=== PATIENT | female | born 1945 | race Caucasian/White ===

== ENCOUNTER 2018-12-22 13:42 | Observation (INO) ==
--- NOTE | 2018-12-22 13:59 | Cardiology Consultation ---
Date of Consultation December 22, 2018 Assessment & Plan (1) Unstable angina pectoris: Patient was transferred from [facility] by EMS to the emergency department, case discussed with Dr. Bolañoss of interventional Cardiology, and expedited cardiac catheterization tentatively planned. I called and discussed the patient's illness with her , Ramirez at home. He is going to drive himself to the hospital to meter in the emergency department. Patient to be reassessed as her hospital stay progresses. Medication therapy including anti-platelet therapy, beta-cassius, and statin therapy will be administered. History of Present Illness History of Present Illness Kaz Campuzano is a 73 year old year old female seen today in cardiology consultation [facility] Mrs. Campuzano has a history of DM2, HTN, and dyslipidemia. She has no past history of heart disease. About 2 weeks ago she started having waxing waning vague pressure in the upper portion of her chest that would also radiate down her arms. At first she felt it occurred after straining a muscle when she was doing yard work, but has persisted. She was seen by her primary care provider on 12/13/2018 and EKG revealed mild nonspecific repolarization changes. A pharmacologic nuclear stress test and resting echocardiogram had tentatively been planned for today. But when the patient arrived, she alerted the nuclear medicine specialist that she had been having symptoms on arrival this morning of 6/10 intensity. She also noted waxing waning symptoms at rest while trying to sleep last night. The patient was assessed by the undersigned and at that time her symptoms had completely resolved. A resting echo has been completed revealing mild to moderate concentric left ventricular hypertrophy, severe posterior mitral valve annular calcification without mitral stenosis, mild tricuspid regurgitation and mild aortic valve regurgitation with an ejection fraction in the range of 55% and subtle hypokinesis of the anteroseptal wall at the apical and mid levels noted on the parasternal long-axis view. An EKG performed today [facility] at 12:51 p.m. reveals normal sinus rhythm at 84 beats per minute, with repolarization changes consistent with ischemia in the anterolateral leads as well as in the inferior leads that are new compared to th e prior tracing performed on 12/13/2018. At present, the patient is asymptomatic resting in the examination room. Patient History Medical History DM2 (diabetes mellitus, type 2) Dyslipidemia HTN (hypertension) Family History Father Coronary heart disease Social History Preferred Language: Khmer Hearing Ability: Normal Current Living Situation: Spouse current occupational status: retired Feels Safe at Home: Yes Smoking Status: Never smoker Review of Systems Review of Systems: All systems reviewed & are unremarkable except as noted in HPI & below Physical Exam Physical Exam: Heart rate: 84, blood pressure 152/86 millimeters Hg, respiratory rate 16 General: no acute distress and stated age Eyes: conjunctiva are pink and non-injected, sclera clear Neck: normal jugular venous pulse, no hepatojugular reflux Chest: normal shape and normal respiratory effort Lungs: clear to auscultation and percussion Cardiac Exam: - regular heart sounds, no murmurs, rubs, or gallops Abdomen: abdomen soft, non-tender, no abnormal masses and no hepatosplenomegaly Musculoskeletal: no gait disturbance, no weakness Extremities: no edema and no cyanosis Neuro: grossly normal exam Psych: appropriate affect and insight Results & Data Laboratory Results recent outpatient labs dated 12/12/2018: WBC 7.61 Hemoglobin 13.9 Hematocrit 42.2 Platelet count 20 89 Heart sodium 141 Potassium 4.8 CO2 27 Chloride 102 Glucose 124 Calcium 10.4 Hemoglobin A1c is 6% Total cholesterol 215 HDL 63 LDL 123 Triglyceride 145 Diagnostic Findings EKG performed 12/22/2018 reveals normal sinus rhythm 84 beats per minute, ST T wave abnormality consistent with ischemia in the anterolateral leads, inferior leads, new/progressed compared to prior dated 12/13/2018 Medications Administered aspirin 81 milligrams, 4 tablets, chewed, 12:54 p.m., [facility]
[2018-12-22] MEDS ORDERED: NiCARDipine HCL INJ 2.5 MG/ML 10 ML AMP ONE (14:04)
[2018-12-22] MEDS ORDERED: fentaNYL citrate 100 MCG/2 ML VIAL ONE (14:04)
[2018-12-22] MEDS ORDERED: HEPARIN (PORCINE) 1000 UNIT/ML 10 ML (CATH LAB USE ONLY) ONE (14:04)
[2018-12-22] MEDS ORDERED: MIDAZOLAM HCL 1 MG/ML 2ML VIAL ONE (14:04)
[2018-12-22] MEDS ORDERED: NITROGLYCERIN/D5W 100MCG/ML 20ML SYR ONE (14:05)
[2018-12-22 14:11] LABS: iSTAT Creatinine 1.1 mg/dl (0.6-1.3); iSTAT Hemoglobin 16.3 g/dl (12.0-16.0); iSTAT Ionized Calcium 1.22 mmol/l (1.12-1.32); iSTAT Potassium 3.9 mEq/L (3.3-5.0)
--- NOTE | 2018-12-22 14:42 | Cardiology Progress Note ---
Date of Service December 22, 2018 Subjective Cardiac cath revealed critical left main stenosis. pt asymptomatic at rest. will admit to PCU to facilitate urgent transfer to [facility] in [place] for CT surgery evaluation. cont heparin which was started in lab nurse may start nitro paste upon arrival to floor. Results & Data Vital Signs (Past 12 Hours) Vital Signs Temp Pulse Resp BP Pulse Ox 12/22/18 13:48 37.0 C 88 20 169/91 H 95
[2018-12-22] MEDS ORDERED: ACETAMINOPHEN 325 MG TAB PO PRN (14:48)
[2018-12-22] MEDS ORDERED: ALUMINUM/MAGNESIUM SUSP 30 ML UDC PO PRN (14:48)
[2018-12-22] MEDS ORDERED: NITROGLYCERIN SL 0.4 MG/TAB TAB SL PRN (14:48)
[2018-12-22] MEDS ORDERED: ONDANSETRON INJ 2 MG/ML 2 ML VIAL IV PRN ×2 (14:48→15:01)
[2018-12-22] MEDS ORDERED: MAGNESIUM HYDROXIDE SUSP 30 ML UDC PO PRN (14:48)
[2018-12-22] MEDS ORDERED: POLYETHYLENE (MIRALAX) 17 GM PACK PO PRN (14:48)
--- NOTE | 2018-12-22 14:49 | Pre Anesthesia Assessment ---
Date of Service December 22, 2018 Pre Sedation Assessment Vital Signs Temp Pulse Resp BP Pulse Ox 12/22/18 13:48 98.6 F 88 20 169/91 H 95 Cardiovascular RRR, no murmur, no edema Respiratory normal respiratory effort, lungs clear to auscultation Pre-Sedation Airway Assessment Smoking Status: Never smoker Hx Sleep Apnea: No Hx Difficult Intubation: No Short, Thick Neck: No Thyromental Distance: > or= 3.5 Finger Breadths Oral Cavity: + Dental Abnormalities Mallampati Class: III ASA: ASA4 Procedure Planning Contraindications for Sedation: none Current Medications Reviewed: Yes Notes The planned sedation has been discussed with the patient. Informed Consent was obtained. I have identified the patient, determined the appropriateness of sedation and have assessed the patient immediately prior to the procedure. All medicine(s) and interventions are by my order.
--- NOTE | 2018-12-22 14:49 | Post Anesthesia Assessment ---
Date of Service December 22, 2018 Post Sedation Assessment Vital Signs Temp Pulse Resp BP Pulse Ox 12/22/18 13:48 98.6 F 88 20 169/91 H 95 Recovery Score Activity: Moves 4 extremities Respiration: Deep Breath/Cough Circulation: +/-20% PreAnes Value Consciousness: Fully Awake Oxygen Saturation: O2 needed for >90% Discharge Sedation Level of Care: Fast Track Phase II Post Sedation Plan On clinical assessment, the patient appears to have tolerated the sedation without complications. Patient is recovering as anticipated. Patient will continue to be monitored by nursing and may be discharged when sedation discharge criteria are met per below protocol. Upon Completions of procedure and additional 15 minutes continue every 5 minute vital signs and the P.A.R. score; then discharge to a Phase I or Fast Track to Phase II per the following guidelines: * Discharge Patient to appropriate Phase II area if PAR is 8 or greater or return to pre- procedure baseline. The post - procedure orders will be as directed. * If PAR score is less than 8 or not return to pre-procedure baseline then patient will follow Phase I monitoring till PAR is reached for Phase II. The Phase I may be done in procedure room or may call to secure a Phase I area. * If naloxone or flumazenil are used for reversal, hold in Phase I for continued monitoring from when last reversal dose was given for a minimum of 60 minutes or longer pending the nurse and/or physician discretion of patient condition before discharge to Phase II. Please call the Sedation Physician to re-evaluate and complete post-note for discharge to Phase II area. Do NOT discharge from procedure sedation or Phase 1 until post- sedation evaluation note is complete by procedure /sedation MD Sedation Discharge Instructions to be given to the patient at discharge to home.
--- NOTE | 2018-12-22 15:01 | Cardiac Catheterization ---
[facility] Data: Telesales Representative Cardiac Status Clinical evaluation leading to the procedure CAD Presenation: Unstable angina Anginal Classification: CCS IV Heart Failure: No Cardiogenic Shock within 24 Hours: No Cardiac Arrest within 24 Hours: No Imaging Studies Past 6 Months: Yes Stress Studies Past 6 Months: No Diagnostic Physicians Name: Seymour Kwon MD Status: Urgent Closure Device Percutaneous Entry Location: Radial Closure Device: Radial Band Recommendations: CABG Intraprocedure Events Significant Disection: No Perforation: No Cardiac Cath Procedure Full Procedure Date December 22, 2018 Pre-Procedure Diagnosis Pre-Procedure Diagnosis: Acute Coronary Syndrome AUC Score AUC Score: 8 Post-Procedure Diagnosis Post-Procedure Diagnosis: Severe CAD and Normal Intracardiac Pressures Procedure(s) Performed Procedure(s) Performed: Coronary Angiography and Left Heart Cath Process Machine Operator Seymour Kwon MD Vp Product(s) Yandel Estimated Blood Loss Estimated Blood Loss: 5 Medication(s) Medication(s): Fentanyl, Heparin, Lidocaine 1%, Nicardipine, Nitroglycerin and Versed Summary of Findings Indication: Suspected acute coronary syndrome Access: 6 Fr slender right radial artery Catheters: Davenport, pigtail Findings: LM -calcified, 95+% distal left main prior to bifurcation with disease extending into ostial LAD LAD -moderate caliber vessel, 95% ostial LAD, 90% mid stenosis at takeoff of first septal, mid to distal luminal irregularities as wraps around apex. First diagonal with mild diffuse disease Circumflex -large caliber vessel, 70-80 % mid segment disease prior to bi furcating OM 2 RCA -dominant, 40 to 50% ostial stenosis (no waveform dampening with engagement), diffuse 40 to 50% mid to distal disease. PDA, PLB with luminal irregularities LVEDP -6 Arterial Closure: TR band Summary: 1. Severe multivessel coronary artery disease -95+% distal left main extending into ostial LAD 90% mid LAD 70 to 80% mid circumflex 40 to 50% ostial RCA, diffuse 40 to 50% mid to distal RCA 2. Normal intracardiac filling pressure Recommendations: Plan to transfer to [facility] for evaluation by cardiac surgery for CABG Start heparin infusion, topical nitrates, beta-cassius, aspirin, statin Hemodynamics Rest Ao:: 107/55/79 Final Ao: 124/62/80 LV: 104/6 Recommendations Recommendations: CABG Specimens Specimens: None Radiation Exposure (mGy) 706 Contrast (mls) 50 Fluids (cc crystalloids) Fluids (cc crystalloids): 45 Drains Drains: None Anesthesia Moderate Procedural Complication(s) None Disposition PCU I attest to the content of the Intraoperative Record and any orders documented therein. Any exceptions are noted below.
[2018-12-22] MEDS ORDERED: HEPARIN SODIUM/DEXTROSE 25,000 UNITS/500 ML BAG IV SCH (15:15)
[2018-12-22] MEDS ORDERED: SODIUM CHLORIDE 0.9% 1000ML 1,000 ML IV SCH (15:30)
--- NOTE | 2018-12-22 15:36 | Discharge Summary ---
Date of Service December 22, 2018 Principal Diagnosis coronary artery disease Discharge Exam General: Awake, alert and oriented x 3. No acute distress. HEENT: Normocephalic, atraumatic. Pupils equal, round and reactive to light and accommodation. Extraocular muscles are intact. Anicteric sclera. Moist mucous membranes. Neck: No JVD. No bruit. Cardiovascular: Regular. Positive S-4. Normal S-1 and S-2. No S-3. No murmurs or rubs. Pulmonary: Clear to auscultation B/L. No rales, rhonchi or wheezing Abdomen: Bowel sounds x 4, soft. No rebound, guarding or tenderness. No organomegaly. Extremities: No clubbing, cyanosis or edema. +2 pedal pulses bilaterally. Skin: Warm and dry. Discharge Data Allergies Allergy/AdvReac Type Severity Reaction Status Date / Time RENE Inhibitors Allergy Unverified 12/22/18 14:48 naproxen Allergy Unverified 12/22/18 14:48 Consultations 12/22/18 14:02 ED Decision to Admit Stat 12/22/18 15:02 Consult Cardiac Rehabilitation Routine Procedures Performed Operation Date: 12/22/18 13:45 Actual Procedures p Cath, Left with Cors and Vent - Thomas Kwon MD s Cineradiography w/Routine Exam - Thomas Kwon MD Ordered Studies 12/22/18 13:44 CL Cath Imgs for PACS use only Stat Hospital Course (1) Unstable angina pectoris: multivessel CAD including critical left main disease to be transferred to [facility] for CT surgery eval Total Time Total Time Spent Total Time Spent (In Minutes): 40 Total Time Includes: Examination of the Patient, Discharge Planning, Medication Reconciliation and Communication With Other Providers Discharge Plan Discharge Items Patient Disposition: Transfer Acute Care Hospital Reason For Visit: UNSTABLE ANGINA Discharge Diagnosis: critical coronary artery disease Activity: As commented below Lifting: None Bathing: No limitations Non-emergency contact: Primary Care Provider Call non-emergency contact if: you have any medication questions Follow-up/Referrals: PCP,NO [Primary Care Provider] - Diet: Heart Healthy Addtl Attending Provider Instructions: For transfer to [facility] for CT surgical eval and CABG Pending Studies at Discharge: No Stand-Alone Forms: Skimbl Skilled Items Patient informed of condition?: Yes DNR: No Discharge Level of Care: Other Communicable Disease: No Discharge Prognosis: Other Lines: Peripheral IV Urinary Catheter: No Medications and DC Order Prescriptions: Continued amlodipine 2.5 mg tablet 2.5 mg PO DAILY RF: 0 pravastatin 10 mg tablet 10 mg PO DAILY RF: 0 losartan-hydrochlorothiazide 50-12.5 mg tablet 1 tab PO DAILY RF: 0 Discharge Orders: Discharge Order (Routine); Ordered 12/22/18 Ordered By: Jacinto White Admission Data Admit Date/Time: 12/22/18 14:49 Attending Provider: Jacinto White Admit Provider: Jacinto White Primary Care Provider: PCP,NO Other Providers: Herberth Frye
--- NOTE | 2018-12-22 16:55 | Emergency Department Note ---
Entered by Yosvany Ratliff acting as a scribe for Wilfredo Martines MD History of Present Illness General Chief complaint: Cardiac Assessment Time Seen by Provider: 12/22/18 13:53 Source: patient Mode of arrival: EMS Limitations: no limitations History of Present Illness Onset (ago): hour(s) 2 Location: chest and upper extremity Radiation: other (arms) Pain Consistency: + other (waxing and waning ) Maximum Pain Intensity: 0 Current Pain Intensity: 5 Quality: + other (shooting) Associated symptoms: + other (shooting arm pain) Treatments prior to arrival: aspirin (4) The patient is a 73 year old female who presents to the Emergency Room with complaints of 5/10 chest pain that was radiating into her arms that started two hours prior to arrival. She states that she has waxing and waning pain in her chest. She notes that upon arrival she had a few twines of shooting pain into her arm. She notes that she was given four Aspirin via EMS. The patient notes that she is not currently taking any blood thinners. She reports that she received and EKG at [facility] that showed signs of cardiac ischemia and was referred here. Home Medications Home Medications Medication Instructions Recorded Confirmed Type amlodipine 2.5 mg PO DAILY 12/22/18 12/22/18 History losartan-hydrochlorothiazide 1 tab PO DAILY 12/22/18 12/22/18 History pravastatin 10 mg PO DAILY 12/22/18 12/22/18 History Allergies Allergy/AdvReac Type Severity Reaction Status Date / Time RENE Inhibitors Allergy Unverified 12/22/18 14:48 naproxen Allergy Unverified 12/22/18 14:48 Past Med/Surg History Medical History Diabetes mellitus, type II (Chronic) Dyslipidemia (Chronic) HTN (hypertension) (Chronic) DM2 (diabetes mellitus, type 2) Dyslipidemia HTN (hypertension) Family History Father Coronary heart disease Social History Preferred Language: Frisian Communication Ability: Effective Hearing Ability: Normal 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 and A total of 10 systems reviewed and were otherwise negative Physical Exam Vital Signs Vital Signs - 24 hr 12/22/18 13:48 12/22/18 13:59 12/22/18 14:45 Temperature 37.0 C Temperature Source Oral Sepsis Recent Fever Within 48 Hours No Sepsis New/Unexplained Change in Mental Status No Sepsis Action Taken by Nursing No Action Required Pulse Rate 88 Pulse Rate [Apical] 76 Pulse Rhythm Regular Respiratory Rate 20 17 Respiratory Effort / Characteristics Non-Labored Spontaneous Respiratory Depth Normal Respiratory Pattern Regular Blood Pressure 169/91 H Blood Pressure [Left Arm] 134/76 Blood Pressure Mean 117 Blood Pressure Mean [Left Arm] 95 Blood Pressure Position [Left Arm] Sitting Pulse Oximetry 95 97 Oxygen Delivery Method Room Air Room Air Room Air GENERAL: Awake, alert, uncomfortable, in no distress HENT: Normocephalic, atraumatic. Oropharynx with dry mucous membranes and otherwise unremarkable. EYES: Normal conjunctiva. Sclera non-icteric. NECK: Supple. No nuchal rigidity. FROM. No JVD. RESPIRATORY: CTAB. CARDIAC: Regular rate, normal rhythm. Extremities warm and well perfused. Pulses equal. ABDOMEN: Soft, non-distended. No tenderness to palpation. No rebound or guarding. No masses. RECTAL: Deferred. MUSCULOSKELETAL: Chest examination reveals no tenderness. The back is symmetrical on inspection without obvious abnormality. There is no CVA tenderness to palpation. No joint edema. LOWER EXTREMITIES: Calves are equal size bilaterally and non-tender. No edema. No discoloration. NEURO: Normal sensorium. No sensory or motor deficits noted. SKIN: No rash or jaundice noted. Course 1355: The patient was evaluated in room A03. A complete history and physical exam was performed. 1410: Discussed the patient's case with KAPIL Brennan. The patient will be evaluated for further management. 1523: Updated from hospitalist team, they will not be consulted for admission due to the patient being transferred. Administered Medications Acetaminophen (Tylenol) 650 mg PO Q4H PRN PRN Reason: Pain or Fever Stop: 01/21/19 14:47 Last Admin: 12/22/18 20:09 Dose: 650 mg Documented by: [id number] Heparin Sodium/Dextrose (Heparin Sodium/Dextrose) 25,000 units in 500 mls @ 15 mls/hr IV .Q24H [facility]; Protocol Stop: 01/21/19 15:14 Last Titration: 12/22/18 19:13 Dose: 750 units/hr, 15 mls/hr Documented by: [id number] Cosigned by: [id number] Admin: 12/22/18 18:49 Dose: 750 units/hr, 15 mls/hr Documented by: [id number] Cosigned by: [id number] Discontinued Medications Fentanyl Citrate (Fentanyl Citrate) Confirm Administered Dose 100 mcg .ROUTE .STK-MED ONE Stop: 12/22/18 14:05 Last Admin: 12/22/18 18:04 Dose: Not Given Documented by: [id number] Heparin Sodium (Porcine) (Heparin Iv Bolus (Floor Layer Helper Use Only)) Confirm Administered Dose 10,000 units .ROUTE .STK-MED ONE Stop: 12/22/18 14:05 Last Admin: 12/22/18 18:05 Dose: Not Given Documented by: [id number] Heparin Sodium/Dextrose () 1 ea IV Q30M [facility]; Protocol Stop: 12/22/18 18:00 Last Admin: 12/22/18 20:07 Dose: Not Given Documented by: [id number] Admin: 12/22/18 18:48 Dose: Not Given Documented by: [id number] Admin: 12/22/18 18:11 Dose: 1 ea Documented by: [id number] Admin: 12/22/18 18:08 Dose: Not Given Documented by: [id number] Heparin Sodium/Sodium Chloride (Heparin/Nss 1000 Unit/500ml Flush Bag) Confirm Administered Dose 3,000 units IV .STK-MED ONE Stop: 12/22/18 14:05 Last Admin: 12/22/18 18:06 Dose: Not Given Documented by: [id number] Sodium Chloride (Nss 1000ml) 1,000 mls @ 100 mls/hr IV .Q10H [facility] Stop: 12/22/18 20:29 Last Admin: 12/22/18 16:45 Dose: 100 mls/hr Documented by: [id number] Midazolam HCl (Versed) Confirm Administered Dose 2 mg .ROUTE .STK-MED ONE Stop: 12/22/18 14:05 Last Admin: 12/22/18 18:07 Dose: Not Given Documented by: [id number] Nicardipine HCl (Cardene) Confirm Administered Dose 25 mg .ROUTE .STK-MED ONE Stop: 12/22/18 14:05 Last Admin: 12/22/18 18:03 Dose: Not Given Documented by: [id number] Nitroglycerin/Dextrose (Nitroglycerin/D5w 100 Mcg/Ml 20ml Syringe) Confirm Administered Dose 2,000 mcg .ROUTE .STK-MED ONE Stop: 12/22/18 14:06 Last Admin: 12/22/18 18:07 Dose: 2,000 mcg Documented by: [id number] Medical Decision Making Differential Diagnosis Differential diagnosis: Etiologies such as shingles, musculoskeletal pain, pericarditis, myocarditis, cardiac ischemia, pericardial tamponade, pneumonia, pneumothorax, pleural effusion, hemothorax, pleurisy, aortic pathology, pulmonary embolism, intra- abdominal process, as well as others were considered. Medical Records Attestation: I reviewed the patient's medical records. Home Medications Current Medication List: was personally reviewed by me Laboratory Data Attestation: I reviewed the patient's lab results. Lab Results 12/22/18 12/22/18 Range/Units 13:57 13:58 POC Hgb 16.3 H (12.0-16.0) g/dl POC Hct 48 H (37-47) % POC Sodium 141 (135-144) mEq/L POC Potassium 3.9 (3.3-5.0) mEq/L POC Chloride 104 (101-112) mEq/L POC Total CO2 26 (24-31) mEq/l POC Anion Gap 15.0 L (16-25) mmol/L POC BUN 17 (7-18) mg/dl POC Creatinine 1.1 (0.6-1.3) mg/dl POC Glucose (other) 106 H (70-99) mg/dl POC Ioniz Calcium Scar 1.22 (1.12-1.32) mmol/l POC Troponin I 0.05 H (0-0.045) ng/ml ECG Data Attestation: I personally reviewed and interpreted this ECG as follows: Indication: chest pain Rate (beats per minute): 92 Findings: + other (QTC: 403) and + ST depression (Inferior, anterior, laterally ); no PAC, no PVC and no ectopy Comparison ECG Date: no prior available Blood Pressure Blood Pressure Findings: Elevated blood pressure Blood Pressure Disposition: further management by hospitalist TREE Narrative The patient is a pleasant 73 y/o woman with a pmhx of HTN, DM2 who presents to the emergency department from [facility] for heart catheterization for unstable angina with new EKG changes per HPI. I discussed the case with Dr. Vaughn over the phone prior to the patient's arrival, who had also discussed the case with Dr. Kwon, interventional cardiology, who was aware of the patient and team would be ready to take the patient to the laborer syrup machine upon arrival to the ED. Presentation occurs in the setting of recent waxing and waning chest pain over the past 2 weeks. Patient had scheduled stress test today but it was counseled upon seeing the patient and finding new ischemic changes on her EkG with pronounced ST depression inferior, anterior, and laterally. Patient was given 324 ASA by EMS. On arrival the patient is in uncomfortable but in NAD, AFVSS. EKG performed in ED again demonstrates ST depressions inferior, anterior, and laterally. POC labs performed only for prompt laborer syrup machine transfer. H/H 16/48. Chemistry without acidosis. Creatinine wnl. POC troponin 0.05. Patient admitted to laborer syrup machine shortly following arrival. -In anticipation of admission here, case was discussed with Betty Parra PAC. However, we were later informed that patient was to be transferred to [facility] for CT surgery eval given severe multivessel disease. Impression & Plan Unstable angina pectoris, ST segment depression, History of hypertension, Type 2 diabetes mellitus Discharge Plan Visit Data *Final* Discharge Date/Time: 12/22/18 13:59 Chief Complaint: Cardiac Assessment ED Provider: Wilfredo Martines Discharge Problem: Unstable angina pectoris, ST segment depression, History of hypertension, Type 2 diabetes mellitus Patient Disposition: Still a Patient Discharge Instructions Interventions: ED Discharge Assessment Last Done: 12/22/18 13:59 The scribe's documentation has been prepared under my direction and personally reviewed by me in its entirety. I confirm that the note above accurately reflects all work, treatment, procedures, and medical decision making performed by me.
[2018-12-22] MEDS: Heparin IV Low Dose *NO* Bolus IV SCH ×4 (18:08→20:07)
[2018-12-22 19:34] VITALS: BP 124/78; PULSE 86; TEMP 97.5; O2SAT 97
[2018-12-22 22:15] LABS: Partial Thromboplastin Time 27.2 Seconds (21.0-31.0)
[2018-12-22 22:29] LABS: Prothrombin Time 10.6 Seconds (9.0-12.0)
[2018-12-23] MEDS ORDERED: ASPIRIN 81 MG ECTAB PO SCH (09:00)
== END 2018-12-22 23:29 | disposition short-term general hospital (02) ==
LOC: ED 13:42 → CC 13:59 → 2S 13:59

== ENCOUNTER 2020-10-02 12:34 | Inpatient (IN) ==
[2020-10-02] MEDS ORDERED: SODIUM CHLORIDE 0.9% 1000ML 1,000 ML IV STA (13:26)
--- NOTE | 2020-10-02 13:49 | Emergency Department Note ---
Impression & Plan Severe anemia, Acute GI bleeding ED Provider Note INFORMANT: Patient ED PROVIDER(S): Herberth Marshall MD CHIEF COMPLAINT: weakness, abn labs. PLAN: Disposition: admitted Condition: Good Outpatient prescription management: none Referral: none MEDICAL DECISION MAKING: Patient presented to the emergency room with abnormal labs. She had hemoglobin of 6.5 on outpatient studies. The patient was evaluated. She appeared pale but was hemodynamically stable. Her blood work here revealed a significant anemia confirming the outpatient findings. She was Hemoccult positive on rectal exami nation. Patient was treated with Pepcid and Protonix bolus and drip. She was hydrated with normal saline. [facility] will [facility] the patient for blood transfusion and admission with further work-up. The patient was seen and examined with Dr. Maldonado, resident physician. We discussed the case and treatments ordered, reviewed the results, and determine the disposition. I have been directly involved with the management and disposition as well as independently evaluated the patient as documented in this note. Triage Nursing notes reviewed and agree them. Vital Signs: reviewed and remarkable for no significant abnormalities Differential diagnosis: peptic ulcer disease, variceal bleed, gastritis, diverticulosis, AVM, coagulopathy, colitis, inflammatory bowel disease, malignancy, Moraima-Kim tear, esophagitis, epistaxis, fissure, hemorrhoids, as well as other pathologies. Diagnostics interpreted by me: ECG: Twelve-lead ECG revealed normal sinus rhythm 84 bpm. Anterior and inferior Q waves present. Nonspecific ST abnormality present. No PVCs or PACs. No ST elevation or depression. Cardiac Monitoring: Cardiac monitoring ordered by me: The patient was placed on continuous cardiac monitoring and observed. It revealed a normal sinus rhythm at 91 beats per minute without ectopy or evidence of dysrhythmia. Imaging studies: Deferred HPI: The patient is a 75 year old female who presents to the Emergency Room with complaints of weakness. This started 2 weeks ago and is worsening. The patient also notes the following associated symptoms, dark stool x1 week, dizziness, fatigue, SOB, chronic chest pain(2 yrs). The patient has found no relieving factors. Current pain is rated as 0/10. Pt is anticoagulated on coumadin. Outpatient labs revealed a hgb of 6.5. Pt denies LOC, headache, fevers, chills, diaphoresis, visual changes, neck pain, nausea, vomiting, abdominal pain, back pain, hematochezia, urinary symptoms, numbness, weakness, lymphadenopathy, rash, or other complaints. ROS: See above HPI for pertinent positives & negatives. A total of 10 systems reviewed and were otherwise negative. PAST MEDICAL HISTORY:See Below , AFIB, anticoagulated. PAST SURGICAL HISTORY:See Below, FAMILY HISTORY:See Below SOCIAL HISTORY:See Below, retired HOME MEDICATIONS:See Below ALLERGIES:See Below VITALS:See Below PHYSICAL EXAMINATION: GENERAL: Awake, alert, well-appearing, in no distress HENT: Normocephalic, atraumatic. Oropharynx unremarkable. EYES: Pale conjunctiva. Sclera non-icteric. NECK: Inspection normal. Non-tender. Supple. No nuchal rigidity. FROM. No masses. RESPIRATORY: Clear to auscultation. No wheezes. No rales. Normal respiratory effort. CARDIAC: Borderline tachycardic rate. Normal rhythm. No murmurs. No rubs. Extremities warm and well perfused. Pulses equal. No JVD. GI: Soft, non-distended. No tenderness to palpation. No rebound or guarding. No masses. RECTAL: Deferred. MUSCULOSKELETAL: Atraumatic. Chest examination reveals no tenderness. The back is symmetrical on inspection without obvious abnormality. There is no CVA tenderness to palpation. No joint edema. LOWER EXTREMITIES: Calves are equal size bilaterally and non-tender. No edema. No discoloration. NEURO: Normal sensorium. No sensory or motor deficits noted. SKIN: No rash or jaundice noted. Herberth Marshall MD Past Med/Surg History Medical History Acute kidney failure, unspecified Asymptomatic menopausal state Atherosclerotic heart disease of [place] coronary artery without angina pectoris Chronic hypertension Chronic kidney disease Class 1 obesity with body mass index (BMI) of 30.0 to 30.9 in adult Diabetes mellitus, type II DM2 (diabetes mellitus, type 2) Dyslipidemia Dyslipidemia HTN (hypertension) HTN (hypertension) Inflamed seborrheic keratosis Interstitial pulmonary disease Neoplasm of uncertain behavior of skin Other allergic rhinitis Plantar fascial fibromatosis Retinal edema Rosacea, unspecified Umbilical hernia with obstruction, without gangrene Unspecified abnormalities of gait and mobility Ventricular fibrillation Vitamin D insufficiency Surgical History H/O cataract extraction H/O eye surgery H/O three vessel coronary artery bypass Family History Father Coronary heart disease Social History Smoking Status: Never smoker Second Hand Exposure: No; Hx Alcohol Use: No Hx Substance Use: No Preferred Language: [place] Communication Ability: Effective Hearing Ability: Normal 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 Beliefs That Will Affect Care: None Current Living Situation: Spouse current occupational status: retired Feels Safe at Home: Yes Assistive Devices: None Allergies Allergies Allergy/AdvReac Type Severity Reaction Status Date / Time naproxen Allergy Unknown CAN'T Verified 10/02/20 15:09 REMEMBER RENE Inhibitors AdvReac Intermediate Cough Verified 10/02/20 15:09 Home Meds Home Medications Medication Instructions Recorded Confirmed aspirin 81 mg chewable tablet 81 mg PO QAM 02/16/19 10/02/20 docusate sodium 100 mg capsule 100 mg PO BID 02/16/19 10/02/20 ferrous sulfate 325 mg (65 mg 325 mg PO BID 02/16/19 10/02/20 iron) tablet warfarin 2 mg tablet 2 mg PO PM 02/16/19 10/02/20 ascorbic acid (vitamin C) 250 mg 250 mg PO BID tab 05/01/20 10/02/20 tablet digoxin 125 mcg (0.125 mg) tablet 125 mcg PO MONWEDFRI tab 05/01/20 10/02/20 torsemide 20 mg tablet 60 mg PO QAM tab 05/01/20 10/02/20 albuterol sulfate 90 mcg/actuation 2 puff INHALATION QID PRN 10/02/20 10/02/20 aerosol inhaler fluticasone propionate 220 1 puff INHALATION DIRECTED 10/02/20 10/02/20 mcg/actuation HFA aerosol inhaler (Flovent HFA) metoprolol succinate 25 mg 25 mg PO DAILY 10/02/20 10/02/20 tablet,extended release 24 hr potassium chloride 20 mEq 20 meq PO UD 10/02/20 10/02/20 tablet,extended release rosuvastatin 40 mg tablet 40 mg PO HS 10/02/20 10/02/20 Results & Data (ED) Vital Signs Vital Signs - 24 hr 10/02/20 12:41 10/02/20 13:26 10/02/20 15:26 Temperature 36.7 C Temperature Source Temporal Artery Scan Oral Pulse Rate 98 H 81 Pulse Rate from SpO2 Sensor Respiratory Rate 16 19 Respiratory Pattern Regular Blood Pressure 127/67 128/51 L Blood Pressure Mean 87 76 Blood Pressure Position Sitting Pulse Oximetry 98 Oxygen Delivery Method Room Air Sepsis Recent Fever Within 48 Hours No Sepsis New/Unexplained Change in Mental Status N/A Sepsis Action Taken by Nursing No Action Required 10/02/20 15:30 10/02/20 16:00 10/02/20 16:30 Temperature Temperature Source Pulse Rate 82 84 85 Pulse Rate from SpO2 Sensor 85 Respiratory Rate 20 24 22 Respiratory Pattern Blood Pressure 134/56 L 114/55 L 125/69 Blood Pressure Mean 82 74 87 Blood Pressure Position Pulse Oximetry 99 Oxygen Delivery Method Room Air Sepsis Recent Fever Within 48 Hours Sepsis New/Unexplained Change in Mental Status Sepsis Action Taken by Nursing 10/02/20 17:00 10/02/20 17:30 10/02/20 17:52 Temperature 37.0 C 37.0 C Temperature Source Oral Oral Pulse Rate 90 91 H 89 Pulse Rate from SpO2 Sensor 90 91 H Respiratory Rate 24 20 20 Respiratory Pattern Blood Pressure 124/57 L 132/59 L 120/68 Blood Pressure Mean 79 83 85 Blood Pressure Position Pulse Oximetry 99 100 99 Oxygen Delivery Method Sepsis Recent Fever Within 48 Hours Sepsis New/Unexplained Change in Mental Status Sepsis Action Taken by Nursing 10/02/20 18:00 10/02/20 18:15 10/02/20 18:30 Temperature 36.9 C 37.0 C 36.9 C Temperature Source Oral Oral Oral Pulse Rate 90 89 89 Pulse Rate from SpO2 Sensor Respiratory Rate 20 20 18 Respiratory Pattern Blood Pressure 125/64 127/64 125/62 Blood Pressure Mean 84 85 83 Blood Pressure Position Pulse Oximetry 96 96 100 Oxygen Delivery Method Sepsis Recent Fever Within 48 Hours Sepsis New/Unexplained Change in Mental Status Sepsis Action Taken by Nursing Laboratory Data Result diagrams: 10/02/20 14:51 10/02/20 14:51 Lab Results 10/02/20 10/02/20 10/02/20 Range/Units 14:00 14:51 14:51 WBC 7.24 (4.8-10.8) K/uL RBC 2.07 L (4.2-5.4) M/uL Hgb 6.3 L* (12.0-16.0) g/dL Hct 20.0 L* (37-47) % MCV 96.6 (80-100) fL MCH 30.4 (25-34) pg MCHC 31.5 L (32-36) g/dL RDW Std Deviation 52.6 H (36.4-46.3) fL RDW Coeff of Barbara 15.0 H (11.5-14.5) % Plt Count 364 (130-400) K/uL MPV 9.6 (7.4-10.4) fL Immature Gran % (Auto) 0.3 % Neut % (Auto) 62.3 % Lymph % (Auto) 30.7 % Worth % (Auto) 5.4 % Eos % (Auto) 1.0 % Baso % (Auto) 0.3 % Neut # (Auto) 4.52 (1.4-6.5) K/uL Lymph # (Auto) 2.22 (1.2-3.4) K/uL Worth # (Auto) 0.39 (0.11-0.59) K/uL Eos # (Auto) 0.07 (0-0.5) K/uL Baso # (Auto) 0.02 (0-0.2) K/uL Immature Gran # (Auto) 0.02 (0.00-0.02) K/uL Polychromasia 1+ PT (9.0-12.0) Seconds INR (0.9-1.1) APTT (21.0-31.0) Seconds PTT Ratio Sodium (136-145) mmol/L Potassium (3.5-5.1) mmol/L Chloride (98-107) mmol/L Carbon Dioxide (21-32) mmol/L Anion Gap (3-11) BUN (7-18) mg/dl Creatinine (0.6-1.2) mg/dl Est Cr Clr Drug Dosing ml/min Est GFR ( Amer) ml/min Est GFR (Non-Af Amer) ml/min BUN/Creatinine Ratio (10-20) Glucose (70-99) mg/dl Calcium (8.5-10.1) mg/dl Total Bilirubin (0.2-1) mg/dl AST (15-37) U/L ALT (12-78) U/L Alkaline Phosphatase (45-117) U/L Troponin I (0-0.045) ng/ml Total Protein (6.4-8.2) gm/dl Albumin (3.4-5.0) gm/dl Globulin (2.5-4.0) gm/dl Albumin/Globulin Ratio (0.9-2) POC Stool Occult Blood Positive A (Negative) COVID-19 Eval Order SARS-CoV-2 (PCR) (Negative) Blood Type A Negative Blood Type Recheck Antibody Screen NEGATIVE Crossmatch See Detail 10/02/20 10/02/20 10/02/20 Range/Units 14:51 14:51 15:00 WBC (4.8-10.8) K/uL RBC (4.2-5.4) M/uL Hgb (12.0-16.0) g/dL Hct (37-47) % MCV (80-100) fL MCH (25-34) pg MCHC (32-36) g/dL RDW Std Deviation (36.4-46.3) fL RDW Coeff of Barbara (11.5-14.5) % Plt Count (130-400) K/uL MPV (7.4-10.4) fL Immature Gran % (Auto) % Neut % (Auto) % Lymph % (Auto) % Worth % (Auto) % Eos % (Auto) % Baso % (Auto) % Neut # (Auto) (1.4-6.5) K/uL Lymph # (Auto) (1.2-3.4) K/uL Worth # (Auto) (0.11-0.59) K/uL Eos # (Auto) (0-0.5) K/uL Baso # (Auto) (0-0.2) K/uL Immature Gran # (Auto) (0.00-0.02) K/uL Polychromasia PT 11.8 (9.0-12.0) Seconds INR 1.2 H (0.9-1.1) APTT 24.8 (21.0-31.0) Seconds PTT Ratio 0.9 Sodium 139 (136-145) mmol/L Potassium 3.9 (3.5-5.1) mmol/L Chloride 107 (98-107) mmol/L Carbon Dioxide 26 (21-32) mmol/L Anion Gap 6.0 (3-11) BUN 21 H (7-18) mg/dl Creatinine 1.33 H (0.6-1.2) mg/dl Est Cr Clr Drug Dosing 33.5 ml/min Est GFR ( Amer) 44.6 ml/min Est GFR (Non-Af Amer) 38.5 ml/min BUN/Creatinine Ratio 15.9 (10-20) Glucose 171 H (70-99) mg/dl Calcium 8.9 (8.5-10.1) mg/dl Total Bilirubin 1.4 H (0.2-1) mg/dl AST 25 (15-37) U/L ALT 23 (12-78) U/L Alkaline Phosphatase 78 (45-117) U/L Troponin I < 0.015 (0-0.045) ng/ml Total Protein 6.4 (6.4-8.2) gm/dl Albumin 3.4 (3.4-5.0) gm/dl Globulin 3.0 (2.5-4.0) gm/dl Albumin/Globulin Ratio 1.1 (0.9-2) POC Stool Occult Blood (Negative) COVID-19 Eval Order Covid19 at [facility] SARS-CoV-2 (PCR) (Negative) Blood Type Blood Type Recheck Antibody Screen Crossmatch 10/02/20 10/02/20 Range/Units 15:00 16:02 WBC (4.8-10.8) K/uL RBC (4.2-5.4) M/uL Hgb (12.0-16.0) g/dL Hct (37-47) % MCV (80-100) fL MCH (25-34) pg MCHC (32-36) g/dL RDW Std Deviation (36.4-46.3) fL RDW Coeff of Barbara (11.5-14.5) % Plt Count (130-400) K/uL MPV (7.4-10.4) fL Immature Gran % (Auto) % Neut % (Auto) % Lymph % (Auto) % Worth % (Auto) % Eos % (Auto) % Baso % (Auto) % Neut # (Auto) (1.4-6.5) K/uL Lymph # (Auto) (1.2-3.4) K/uL Worth # (Auto) (0.11-0.59) K/uL Eos # (Auto) (0-0.5) K/uL Baso # (Auto) (0-0.2) K/uL Immature Gran # (Auto) (0.00-0.02) K/uL Polychromasia PT (9.0-12.0) Seconds INR (0.9-1.1) APTT (21.0-31.0) Seconds PTT Ratio Sodium (136-145) mmol/L Potassium (3.5-5.1) mmol/L Chloride (98-107) mmol/L Carbon Dioxide (21-32) mmol/L Anion Gap (3-11) BUN (7-18) mg/dl Creatinine (0.6-1.2) mg/dl Est Cr Clr Drug Dosing ml/min Est GFR ( Amer) ml/min Est GFR (Non-Af Amer) ml/min BUN/Creatinine Ratio (10-20) Glucose (70-99) mg/dl Calcium (8.5-10.1) mg/dl Total Bilirubin (0.2-1) mg/dl AST (15-37) U/L ALT (12-78) U/L Alkaline Phosphatase (45-117) U/L Troponin I (0-0.045) ng/ml Total Protein (6.4-8.2) gm/dl Albumin (3.4-5.0) gm/dl Globulin (2.5-4.0) gm/dl Albumin/Globulin Ratio (0.9-2) POC Stool Occult Blood (Negative) COVID-19 Eval Order SARS-CoV-2 (PCR) NEGATIVE (Negative) Blood Type Blood Type Recheck A Negative Antibody Screen Crossmatch Administered Medications Sodium Chloride (Nss 1000ml) 1,000 mls @ 125 mls/hr IV .Q8H STA Stop: 10/02/20 21:25 Last Admin: 10/02/20 14:54 Dose: 125 mls/hr Documented by: [id number] Pantoprazole Sodium 40 mg/ (Dextrose) 100 mls @ 20 mls/hr IV Q5H NATI Stop: 11/01/20 13:59 Last Admin: 10/02/20 14:54 Dose: 8 mg/hr, 20 mls/hr Documented by: [id number] Discontinued Medications Famotidine (Pepcid 20mg Iv Push) 20 mg in 5 mls @ 2.5 mls/min IV NOW STA Stop: 10/02/20 13:52 Last Admin: 10/02/20 14:55 Dose: 2.5 mls/min Documented by: [id number] Pantoprazole Sodium 40 mg/ (Syringe) 10 mls @ 5 mls/min IV NOW ONE Stop: 10/02/20 13:52 Last Admin: 10/02/20 14:55 Dose: 5 mls/min Documented by: [id number] Sodium Chloride (Nss 1000ml) 500 mls @ 999 mls/hr IV .Q31M ONE Stop: 10/02/20 14:21 Last Infusion: 10/02/20 15:25 Dose: 0 mls/hr Documented by: [id number] Admin: 10/02/20 14:54 Dose: 999 mls/hr Documented by: [id number] Discharge Plan Forms Stand Alone Forms: My [facility] Prescriptions Prescriptions: No Action docusate sodium 100 mg capsule 100 mg PO BID RF: 0 ferrous sulfate 325 mg (65 mg iron) tablet 325 mg PO BID RF: 0 aspirin 81 mg tablet,chewable 81 mg PO QAM RF: 0 warfarin 2 mg tablet 2 mg PO PM RF: 0 ascorbic acid (vitamin C) 250 mg tablet 250 mg PO BID RF: 0 digoxin 125 mcg (0.125 mg) tablet 125 mcg PO MONWEDFRI RF: 0 torsemide 20 mg tablet 60 mg PO QAM RF: 0 Flovent HFA 220 mcg/actuation HFA aerosol inhaler 1 puff INHALATION DIRECTED RF: 0 albuterol sulfate 90 mcg/actuation HFA aerosol inhaler 2 puff INHALATION QID PRN (Reason: Shortness Of Breath) RF: 0 rosuvastatin 40 mg tablet 40 mg PO HS RF: 0 potassium chloride 20 mEq Tablet Extended Release 20 meq PO UD RF: 0 metoprolol succinate 25 mg tablet extended release 24 hr 25 mg PO DAILY RF: 0 Referrals Referrals: Jacek Baltazar DO [Primary Care Provider] - Resident Activity Tracking Resident Involvement: Resident Care Provided Care Provided: Adult ED Date of Service: October 02, 2020 I have seen the patient, discussed the case with the attending physician, and agree with the documentation above. PGY2 resident Alex Maldonado
[2020-10-02] MEDS ORDERED: FAMOTIDINE 20MG IV PUSH 20 MG/5 ML SYR IV STA (13:51)
[2020-10-02] MEDS ORDERED: SODIUM CHLORIDE 0.9% 1000ML 500 ML IV ONE (13:51)
[2020-10-02] MEDS ORDERED: PANTOprazole 40 MG in SYRINGE 0 ML IV ONE (13:51)
--- NOTE | 2020-10-02 14:53 | History & Physical Report ---
Date of Service October 02, 2020 Assessment & Plan (1) Severe anemia: (2) Acute GI bleeding: Plan: This is a 73-year-old female with PMHx paroxysmal atrial fibrillation on anticoagulation, history of CAD status post CABG, ischemic cardiomyopathy, type 2 diabetes and other medical problems listed below who presents with worsening shortness of breath over the past few weeks and was found to have severe anemia. Hgb 6.3 (previous hgb 13 in July 2020) In setting of black stool x 1 week, positive stool occult blood Consented, type and crossed for 2u prbcs Giving Lasix 40mg IV x 1 in between units Hold Coumadin and aspirin INR 1.2 so no need to reverse Repeat H&H this evening GI consulted Continue IV protonix Drip NPO @ [place] (3) Coronary artery disease: Plan: H/o CABG Stable, no significant EKG changes, troponin negative Continue statin, Toprol Holding aspirin (4) Atrial fibrillation: Plan: Continue digoxin, Toprol Holding coumadin in setting of severe anemia (5) Diabetes mellitus, type II: Plan: Repeat a1c pending Not on home medications SSI while in-patient BSG AC HS (6) CHF (congestive heart failure): Plan: Appears euvolemic, took home dose torsemide this morning Receiving 2u prbcs with Lasix in between this evening Reassess volume status in AM (7) CKD (chronic kidney disease), stage III: Plan: Kidney function at baseline Monitor daily BMP (8) Peripheral arterial disease: Plan: Continue statin DVT Ppx: SCDs Code status: FULL PCP: Giovanny Dispo: Admitted to PCU Patient seen in collaboration with Dr. Baires. Please see addendum. History of Present Illness Chief Complaint: SOB Primary Care Provider: Jacek Baltazar DO This is a 73-year-old female with PMHx paroxysmal atrial fibrillation on anticoagulation, history of CAD status post CABG, ischemic cardiomyopathy, type 2 diabetes and other medical problems listed below who presents with worsening shortness of breath over the past few weeks. Patient is more short of breath with exertion. Associated symptoms include lightheadedness, palpitations, generalized weakness. Is also noted dark brown to black stool over the past week that is different than baseline. No bright red blood per rectum. Also endorsing chronic chest pain that is unchanged. Denies any fever or chills. No congestion, wheezing, nausea, vomiting, abdominal pain, dysuria, diarrhea or constipation. Was seen in outpatient setting for worsening shortness of breath which was thought to be multifactorial in setting of known interstitial lung disease. CBC was drawn, revealing hemoglobin of 6.5, much different than previous hemoglobin of 13 back in July 2020. Was sent to the ED for further evaluation. Patient is on aspirin and Coumadin. Takes iron supplementation. Allergies Allergy/AdvReac Type Severity Reaction Status Date / Time naproxen Allergy Unknown CAN'T Verified 10/02/20 15:09 REMEMBER RENE Inhibitors AdvReac Intermediate Cough Verified 10/02/20 15:09 Home Medications Medication Instructions Recorded Confirmed Type aspirin 81 mg chewable tablet 81 mg PO QAM 02/16/19 10/02/20 History docusate sodium 100 mg capsule 100 mg PO BID 02/16/19 10/02/20 History ferrous sulfate 325 mg (65 mg 325 mg PO BID 02/16/19 10/02/20 History iron) tablet warfarin 2 mg tablet 2 mg PO PM 02/16/19 10/02/20 History ascorbic acid (vitamin C) 250 mg 250 mg PO BID tab 05/01/20 10/02/20 History tablet digoxin 125 mcg (0.125 mg) tablet 125 mcg PO MONWEDFRI tab 05/01/20 10/02/20 History torsemide 20 mg tablet 60 mg PO QAM tab 05/01/20 10/02/20 History albuterol sulfate 90 mcg/actuation 2 puff INHALATION QID PRN 10/02/20 10/02/20 History aerosol inhaler fluticasone propionate 220 1 puff INHALATION DIRECTED 10/02/20 10/02/20 History mcg/actuation HFA aerosol inhaler (Flovent HFA) metoprolol succinate 25 mg 25 mg PO DAILY 10/02/20 10/02/20 History tablet,extended release 24 hr potassium chloride 20 mEq 20 meq PO UD 10/02/20 10/02/20 History tablet,extended release rosuvastatin 40 mg tablet 40 mg PO HS 10/02/20 10/02/20 History Past Med/Surg History Medical History (Updated 10/02/20 @ 19:04 by Lydia Hendrickson PA-C) Asymptomatic menopausal state Atrial fibrillation CHF (congestive heart failure) CKD (chronic kidney disease), stage III Class 1 obesity with body mass index (BMI) of 30.0 to 30.9 in adult Coronary artery disease Diabetes mellitus, type II Dyslipidemia History of hypertension Inflamed seborrheic keratosis Interstitial pulmonary disease Neoplasm of uncertain behavior of skin Other allergic rhinitis Plantar fascial fibromatosis Retinal edema Rosacea, unspecified Stage II pressure ulcer Stage II pressure ulcer of right heel Surgical wound, non healing Umbilical hernia with obstruction, without gangrene Unspecified abnormalities of gait and mobility Unstable angina pectoris Ventricular fibrillation Vitamin D insufficiency Surgical History H/O cataract extraction H/O eye surgery H/O three vessel coronary artery bypass Family History Father Coronary heart disease Social History Smoking Status: Never smoker Second Hand Exposure: No; Hx Alcohol Use: No Hx Substance Use: No Preferred Language: Algerian Communication Ability: Effective Hearing Ability: Normal 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 Physical Exam Physical Exam: General Appearance: WD/WN, vitals as above, NAD, sitting up in bed, pleasant, pale Head: normocephalic, atraumatic Eyes: normal inspection, PERRL, conjunctivae normal, anicteric sclerae ENT: external ear and nose normal, oropharynx normal Neck: normal visual inspection, trachea midline, no thyromegaly Respiratory: normal respiratory effort, lungs clear to auscultation, no wheeze, rales, rhonchi. No accessory muscle use Cardiovascular: regular rate, rhythm, no murmur, normal peripheral pulses, no BLE edema. Vessels: no JVD Chest: normal inspection of chest Abdomen/GI: normal bowel sounds, soft, nontender, no hepatosplenomegaly Extremities/Musculoskeletal: no cyanosis or clubbing, extremities motor strength 5/5 Neurologic: PERRL, EOMI, accommodation nl, no face palsy, no dysarthria, CN's II-XI intact bilaterally and moves all extremities Psychiatric: A+Ox3, euthymic affect Skin: no rashes, pale, warm/dry Results & Data Results & Data ([facility]) Vital Signs (Past 12 Hours) Vital Signs Temp Pulse Resp BP Pulse Ox 10/02/20 12:41 36.7 C 98 H 16 127/67 98 Laboratory Results Short CBC 10/02/20 10/02/20 10/02/20 Range/Units 14:00 14:51 14:51 WBC 7.24 (4.8-10.8) K/uL RBC 2.07 L (4.2-5.4) M/uL Hgb 6.3 L* (12.0-16.0) g/dL Hct 20.0 L* (37-47) % MCV 96.6 (80-100) fL MCH 30.4 (25-34) pg MCHC 31.5 L (32-36) g/dL RDW Std Deviation 52.6 H (36.4-46.3) fL RDW Coeff of Barbara 15.0 H (11.5-14.5) % Plt Count 364 (130-400) K/uL MPV 9.6 (7.4-10.4) fL Immature Gran % (Auto) 0.3 % Neut % (Auto) 62.3 % Lymph % (Auto) 30.7 % [place] % (Auto) 5.4 % Eos % (Auto) 1.0 % Baso % (Auto) 0.3 % Neut # (Auto) 4.52 (1.4-6.5) K/uL Lymph # (Auto) 2.22 (1.2-3.4) K/uL [place] # (Auto) 0.39 (0.11-0.59) K/uL Eos # (Auto) 0.07 (0-0.5) K/uL Baso # (Auto) 0.02 (0-0.2) K/uL Immature Gran # (Auto) 0.02 (0.00-0.02) K/uL Polychromasia 1+ PT (9.0-12.0) Seconds INR (0.9-1.1) APTT (21.0-31.0) Seconds PTT Ratio Sodium (136-145) mmol/L Potassium (3.5-5.1) mmol/L Chloride (98-107) mmol/L Carbon Dioxide (21-32) mmol/L Anion Gap (3-11) BUN (7-18) mg/dl Creatinine (0.6-1.2) mg/dl Est Cr Clr Drug Dosing ml/min Est GFR ( Amer) ml/min Est GFR (Non-Af Amer) ml/min BUN/Creatinine Ratio (10-20) Glucose (70-99) mg/dl Calcium (8.5-10.1) mg/dl Total Bilirubin (0.2-1) mg/dl AST (15-37) U/L ALT (12-78) U/L Alkaline Phosphatase (45-117) U/L Troponin I (0-0.045) ng/ml Total Protein (6.4-8.2) gm/dl Albumin (3.4-5.0) gm/dl Globulin (2.5-4.0) gm/dl Albumin/Globulin Ratio (0.9-2) POC Stool Occult Blood Positive A (Negative) COVID-19 Eval Order SARS-CoV-2 (PCR) (Negative) Blood Type A Negative Blood Type Recheck Antibody Screen NEGATIVE Crossmatch See Detail 10/02/20 10/02/20 10/02/20 Range/Units 14:51 14:51 15:00 WBC (4.8-10.8) K/uL RBC (4.2-5.4) M/uL Hgb (12.0-16.0) g/dL Hct (37-47) % MCV (80-100) fL MCH (25-34) pg MCHC (32-36) g/dL RDW Std Deviation (36.4-46.3) fL RDW Coeff of Barbara (11.5-14.5) % Plt Count (130-400) K/uL MPV (7.4-10.4) fL Immature Gran % (Auto) % Neut % (Auto) % Lymph % (Auto) % [place] % (Auto) % Eos % (Auto) % Baso % (Auto) % Neut # (Auto) (1.4-6.5) K/uL Lymph # (Auto) (1.2-3.4) K/uL [place] # (Auto) (0.11-0.59) K/uL Eos # (Auto) (0-0.5) K/uL Baso # (Auto) (0-0.2) K/uL Immature Gran # (Auto) (0.00-0.02) K/uL Polychromasia PT 11.8 (9.0-12.0) Seconds INR 1.2 H (0.9-1.1) APTT 24.8 (21.0-31.0) Seconds PTT Ratio 0.9 Sodium 139 (136-145) mmol/L Potassium 3.9 (3.5-5.1) mmol/L Chloride 107 (98-107) mmol/L Carbon Dioxide 26 (21-32) mmol/L Anion Gap 6.0 (3-11) BUN 21 H (7-18) mg/dl Creatinine 1.33 H (0.6-1.2) mg/dl Est Cr Clr Drug Dosing 33.5 ml/min Est GFR ( Amer) 44.6 ml/min Est GFR (Non-Af Amer) 38.5 ml/min BUN/Creatinine Ratio 15.9 (10-20) Glucose 171 H (70-99) mg/dl Calcium 8.9 (8.5-10.1) mg/dl Total Bilirubin 1.4 H (0.2-1) mg/dl AST 25 (15-37) U/L ALT 23 (12-78) U/L Alkaline Phosphatase 78 (45-117) U/L Troponin I < 0.015 (0-0.045) ng/ml Total Protein 6.4 (6.4-8.2) gm/dl Albumin 3.4 (3.4-5.0) gm/dl Globulin 3.0 (2.5-4.0) gm/dl Albumin/Globulin Ratio 1.1 (0.9-2) POC Stool Occult Blood (Negative) COVID-19 Eval Order Covid19 at [facility] SARS-CoV-2 (PCR) (Negative) Blood Type Blood Type Recheck Antibody Screen Crossmatch 10/02/20 10/02/20 Range/Units 15:00 16:02 WBC (4.8-10.8) K/uL RBC (4.2-5.4) M/uL Hgb (12.0-16.0) g/dL Hct (37-47) % MCV (80-100) fL MCH (25-34) pg MCHC (32-36) g/dL RDW Std Deviation (36.4-46.3) fL RDW Coeff of Barbara (11.5-14.5) % Plt Count (130-400) K/uL MPV (7.4-10.4) fL Immature Gran % (Auto) % Neut % (Auto) % Lymph % (Auto) % [place] % (Auto) % Eos % (Auto) % Baso % (Auto) % Neut # (Auto) (1.4-6.5) K/uL Lymph # (Auto) (1.2-3.4) K/uL [place] # (Auto) (0.11-0.59) K/uL Eos # (Auto) (0-0.5) K/uL Baso # (Auto) (0-0.2) K/uL Immature Gran # (Auto) (0.00-0.02) K/uL Polychromasia PT (9.0-12.0) Seconds INR (0.9-1.1) APTT (21.0-31.0) Seconds PTT Ratio Sodium (136-145) mmol/L Potassium (3.5-5.1) mmol/L Chloride (98-107) mmol/L Carbon Dioxide (21-32) mmol/L Anion Gap (3-11) BUN (7-18) mg/dl Creatinine (0.6-1.2) mg/dl Est Cr Clr Drug Dosing ml/min Est GFR ( Amer) ml/min Est GFR (Non-Af Amer) ml/min BUN/Creatinine Ratio (10-20) Glucose (70-99) mg/dl Calcium (8.5-10.1) mg/dl Total Bilirubin (0.2-1) mg/dl AST (15-37) U/L ALT (12-78) U/L Alkaline Phosphatase (45-117) U/L Troponin I (0-0.045) ng/ml Total Protein (6.4-8.2) gm/dl Albumin (3.4-5.0) gm/dl Globulin (2.5-4.0) gm/dl Albumin/Globulin Ratio (0.9-2) POC Stool Occult Blood (Negative) COVID-19 Eval Order SARS-CoV-2 (PCR) NEGATIVE (Negative) Blood Type Blood Type Recheck A Negative Antibody Screen Crossmatch [facility] 10/02/20 14:51 Sodium 139 Potassium 3.9 Chloride 107 Carbon Dioxide 26 BUN 21 H Creatinine 1.33 H Glucose 171 H Calcium 8.9 Cardiac Enzymes 10/02/20 Range/Units 14:51 Troponin I < 0.015 (0-0.045) ng/ml Liver Function 10/02/20 Range/Units 14:51 Total Bilirubin 1.4 H (0.2-1) mg/dl AST 25 (15-37) U/L ALT 23 (12-78) U/L Alkaline Phosphatase 78 (45-117) U/L Albumin 3.4 (3.4-5.0) gm/dl ECG Additional Comments: Mild diffuse ST and T wave abnormalities, no significant change from previous EKG Supervising Physician Co-Signing Physician Notes I saw this patient with the physician conservation assistant, I participated in the history, physical, review of systems, and physical exam. I reviewed the medications with the patient and the physician conservation assistant and helped reconcile the medications. I helped take a detailed family and social history as well. I formulated the assessment and plan personally with the physician conservation assistant and went over it with the patient. ROS-No Headache, No Visual Changes, No Nausea, No Vomiting, No Fever, No Chills, No Neck Pain or Stiffness, No Chest Pain, No Palpitations, No SOB, No ANDRADE, No Cough, No Sputum, No Wheezing, No Abdominal Pain, No Diarrhea, No Hematemesis, No Hemoptysis, No Unexpected Weight Loss, No Flank pain, No Melena, No Hematochezia, No Frequency, No Urgency, No Burning, No Hematuria, No Rashes, No Diaphoresis. Appetite is Normal, Weak Physical Exam Gen-AAO x 3, NAD, Afebrile Head-NCAT, EOMI, PERRLA, Anicteric Sclera, No Posterior Pharyngeal Erythema Neck-Supple, No JVD, No Thyromegaly, No Masses, No LAD, No Bruits Lungs-Clear to Auscultation Bilaterally, No Rales, No Rhonchi, No Wheezing, No Crepitus Chest-No S4, +S1, +S2, No S3, No Murmurs, No Rubs, No Gallops, No Ectopy Abdomen-Soft, Bowel Sounds Present, Non Tender, Non Distended, No Hepatomegaly, No Splenomegaly, No Palpable Masses, No Rebound, No Rigidity, No Guarding Musculoskeletal-Full Range of Motion Bilaterally, No CVAT Extremities-No Cyanosis, No Clubbing, No Edema Nuero-Cranial Nerves II-XII grossly intact, Motor WNL, DTRs WNL, Strength WNL, Non Focal Psych-Normal Mood
[2020-10-02] MEDS: PANTOprazole 40 MG in DEXTROSE 5% 100 ML IV SCH ×2 (14:54→21:23)
[2020-10-02 15:12] LABS: Hemoglobin 6.3 g/dL (12.0-16.0); Mean Corpuscular Hemoglobin 30.4 pg (25-34); Mean Corpuscular Hgb Conc 31.5 g/dL (32-36); Mean Corpuscular Volume 96.6 fL (80-100); Mean Platelet Volume 9.6 fL (7.4-10.4); Platelet Count 364 K/uL (130-400); RDW Standard Deviation 52.6 fL (36.4-46.3); Red Blood Count 2.07 M/uL (4.2-5.4); White Blood Count 7.24 K/uL (4.8-10.8)
[2020-10-02] MEDS ORDERED: SODIUM CHLORIDE 0.9% 250 ML IV PRN (15:23)
[2020-10-02 15:25] LABS: Basophils # (auto) 0.02 K/uL (0-0.2); Basophils % (auto) 0.3 %; Eosinophils # (auto) 0.07 K/uL (0-0.5); Immature Granulocytes # (auto) 0.02 K/uL (0.00-0.02); Immature Granulocytes % (auto) 0.3 %; Lymphocytes # (auto) 2.22 K/uL (1.2-3.4); Lymphocytes % (auto) 30.7 %; Monocytes # (auto) 0.39 K/uL (0.11-0.59); Monocytes % (auto) 5.4 %; Neutrophils # (auto) 4.52 K/uL (1.4-6.5); Neutrophils % (auto) 62.3 %; Polychromasia 1+
[2020-10-02 15:27] LABS: Albumin Level 3.4 gm/dl (3.4-5.0); BUN Creatinine Ratio 15.9 (10-20); Blood Urea Nitrogen 21 mg/dl (7-18); Calcium 8.9 mg/dl (8.5-10.1); Carbon Dioxide 26 mmol/L (21-32); Chloride 107 mmol/L (98-107); Creatinine Clr Calc Pharmacy 33.5 ml/min; Est GFR (African American) 44.6 ml/min; Est GFR (Non-African American) 38.5 ml/min; Glucose 171 mg/dl (70-99); Potassium 3.9 mmol/L (3.5-5.1); Sodium 139 mmol/L (136-145)
[2020-10-02 15:30] LABS: INR 1.2 (0.9-1.1); Partial Thromboplastin Ratio 0.9; Partial Thromboplastin Time 24.8 Seconds (21.0-31.0); Prothrombin Time 11.8 Seconds (9.0-12.0)
[2020-10-02 15:32] LABS: Alanine Aminotransferase 23 U/L (12-78); Albumin Globulin Ratio 1.1 (0.9-2); Alkaline Phosphatase 78 U/L (45-117); Aspartate Aminotransferase 25 U/L (15-37); Bilirubin,Total 1.4 mg/dl (0.2-1); Total Protein 6.4 gm/dl (6.4-8.2); Troponin I < 0.015 ng/ml (0-0.045)
--- NOTE | 2020-10-02 16:22 | Electrocardiogram Report ---
Test Reason : Blood Pressure : / mmHG Vent. 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
[2020-10-02] MEDS ORDERED: FUROSEMIDE 40 MG in SYRINGE 0 ML IV ONE (21:15)
[2020-10-02] MEDS ORDERED: POTASSIUM CHLORIDE CRTAB 20 MEQ TABCR PO SCH (22:09)
[2020-10-02] MEDS ORDERED: GLUCOSE 40% GEL 15 GM TUBE PO PRN (22:09)
[2020-10-02] MEDS ORDERED: CARBOHYDRATES FOR HYPOGLYCEMIA PO PRN (22:09)
[2020-10-02] MEDS ORDERED: GLUCAGON FOR INJ 1 MG VIAL SQ PRN (22:09)
[2020-10-02] MEDS ORDERED: GLUCOSE 10 TABS/TUBE PO PRN (22:09)
[2020-10-02] MEDS ORDERED: DEXTROSE 50% 50 ML SYRINGE IV PRN (22:09)
[2020-10-02] MEDS ORDERED: ALBUTEROL HFA 8 GM INHALER INH PRN (22:09)
[2020-10-02] MEDS: INSULIN ASPART 100 UNITS/ML 3 ML PEN SC SCH (22:37)
[2020-10-02 22:59] LABS: Hematocrit (blood only) 27.4 % (37-47); Hemoglobin 8.6 g/dL (12.0-16.0)
[2020-10-03] MEDS: ACETAMINOPHEN 325 MG TAB PO PRN (01:41)
[2020-10-03] MEDS: TORSEMIDE 20 MG TAB PO SCH (02:30)
[2020-10-03] MEDS: PANTOprazole 40 MG in DEXTROSE 5% 100 ML IV SCH ×5 (02:30→22:19)
[2020-10-03] MEDS: INSULIN ASPART 100 UNITS/ML 3 ML PEN SC SCH ×3 (06:25→17:13)
[2020-10-03 07:38] LABS: Basophils # (auto) 0.04 K/uL (0-0.2); Basophils % (auto) 0.5 %; Eosinophils % (auto) 3.6 %; Hematocrit (blood only) 30.8 % (37-47); Immature Granulocytes # (auto) 0.03 K/uL (0.00-0.02); Immature Granulocytes % (auto) 0.4 %; Lymphocytes # (auto) 2.26 K/uL (1.2-3.4); Lymphocytes % (auto) 26.9 %; Mean Corpuscular Hemoglobin 29.9 pg (25-34); Mean Corpuscular Hgb Conc 32.5 g/dL (32-36); Mean Corpuscular Volume 91.9 fL (80-100); Mean Platelet Volume 9.7 fL (7.4-10.4); Monocytes # (auto) 0.53 K/uL (0.11-0.59); Monocytes % (auto) 6.3 %; Neutrophils # (auto) 5.24 K/uL (1.4-6.5); Neutrophils % (auto) 62.3 %; Platelet Count 360 K/uL (130-400); RDW Standard Deviation 53.4 fL (36.4-46.3); Red Blood Count 3.35 M/uL (4.2-5.4)
[2020-10-03] MEDS ORDERED: NON-FORMULARY MEDICATION (Ferrous Sulfate 325 mg (65 mg iron) tablet) PO SCH (08:00)
[2020-10-03 08:11] LABS: BUN Creatinine Ratio 11.5 (10-20); Calcium 8.4 mg/dl (8.5-10.1); Creatinine Clr Calc Pharmacy 31.6 ml/min; Est GFR (African American) 41.5 ml/min; Est GFR (Non-African American) 35.8 ml/min; Potassium 3.4 mmol/L (3.5-5.1)
--- NOTE | 2020-10-03 08:28 | Gastrointestinal Consultation ---
Date of Consultation October 03, 2020 Assessment & Plan (1) Severe anemia: This is a 75-year-old female with history of PAF on Coumadin, CAD on ASA, and others, admitted with report of black stools and shortness of breath, found to have severe anemia, which has responded nicely to pRBC transfusion. She has had no melena, hematochezia, or hematemesis since admission, this a.m. she is feeling somehwat better, VSS stable, abdomen soft, no overt active GI bleeding. She may have had PUD or gastritis, perhaps related to medication use. - Keep n.p.o. for now - Continue PPI gtt. - Trend H&H, BUN, transfuse as needed - Monitor and document GI output - Will defer endoscopy at this time, but would continue to monitor her clinical status for active GIB, instability; would reassess need for endoscopy at that time - I recommended to her that after she improves from this episode and is home, co nsider scheduling screening colonoscopy as she is due for such given her h/o polyps Thank you for allowing us to participate in the care of this patient. Please call with any acute changes, questions or concerns. Please see addendum below with additional recommendation from my supervising physician. (2) Melena: Supervising Physician Co-Signing Physician Notes I have personally seen and examined the patient with Ranjana Reed PA-C. Her note reflects my exam and findings. I agree with her impression and plan. No signs of active ongoing bleeding. No current indication for endoscopy. Patient should remain on a daily PPI as an out patient. Advance diet. Jhoan Dickerson M.D. History of Present Illness Reason for Consultation: GI bleed Requesting Physician: Lydia Hendrickson PA-C Attending Physician: Renae Rodrigues DO History of Present Illness This is a 75-year-old female with PMHx PAF on anticoagulation, CAD s/p CABG on ASA, ICM, T2DM and others who presented to the ER with SOB yesterday; OP labs revealed HGB 13->6, BUN 21. On arrival, INR 1.2, K3.4, creatinine 1.4. GI asked to evaluate for GI bleed. She been having more SOB over the last several weeks and also endorsed having 1- 2 small-medium black formed stools daily for several weeks; previously stool was brown. Also endorses having intermittent abdominal discomfort, described as an upset stomach, along with some reflux/burping which is unusual for her and for which she has been taking antacids. She was started on PPI drip, transfused 2 units. This a.m., Hgb up to 10, she has had no GI output overnight. This a.m. feeling somewhat improved, though tired from being up most of the night. Denies vomiting, nausea, hematemesis, dysphagia or odynophagia, hematochezia, chronic chest pain that is unchanged. No previous history of GI bleed or EGD. Denies tobacco or EtOH, NSAID use. Last colonoscopy 2016 - 1 small TA, repeat 5 years Allergies Allergy/AdvReac Type Severity Reaction Status Date / Time naproxen Allergy Unknown CAN'T Verified 10/02/20 15:09 REMEMBER RENE Inhibitors AdvReac Intermediate Cough Verified 10/02/20 15:09 Home Medications Medication Instructions Recorded Confirmed Type aspirin 81 mg chewable tablet 81 mg PO QAM 02/16/19 10/02/20 History docusate sodium 100 mg capsule 100 mg PO BID 02/16/19 10/02/20 History ferrous sulfate 325 mg (65 mg 325 mg PO BID 02/16/19 10/02/20 History iron) tablet warfarin 2 mg tablet 2 mg PO PM 02/16/19 10/02/20 History ascorbic acid (vitamin C) 250 mg 250 mg PO BID tab 05/01/20 10/02/20 History tablet digoxin 125 mcg (0.125 mg) tablet 125 mcg PO MONWEDFRI tab 05/01/20 10/02/20 History torsemide 20 mg tablet 60 mg PO QAM tab 05/01/20 10/02/20 History albuterol sulfate 90 mcg/actuation 2 puff INHALATION QID PRN 10/02/20 10/02/20 History aerosol inhaler fluticasone propionate 220 1 puff INHALATION DIRECTED 10/02/20 10/02/20 History mcg/actuation HFA aerosol inhaler (Flovent HFA) metoprolol succinate 25 mg 25 mg PO DAILY 10/02/20 10/02/20 History tablet,extended release 24 hr potassium chloride 20 mEq 20 meq PO UD 10/02/20 10/02/20 History tablet,extended release rosuvastatin 40 mg tablet 40 mg PO HS 10/02/20 10/02/20 History Patient History Medical History (Updated 10/03/20 @ 10:12 by Ranjana Reed PA-C) Asymptomatic menopausal state Atrial fibrillation CHF (congestive heart failure) CKD (chronic kidney disease), stage III Class 1 obesity with body mass index (BMI) of 30.0 to 30.9 in adult Coronary artery disease Diabetes mellitus, type II Dyslipidemia History of hypertension Inflamed seborrheic keratosis Interstitial pulmonary disease Neoplasm of uncertain behavior of skin Other allergic rhinitis Plantar fascial fibromatosis Retinal edema Rosacea, unspecified Stage II pressure ulcer Stage II pressure ulcer of right heel Surgical wound, non healing Umbilical hernia with obstruction, without gangrene Unspecified abnormalities of gait and mobility Unstable angina pectoris Ventricular fibrillation Vitamin D insufficiency Surgical History H/O cataract extraction H/O eye surgery H/O three vessel coronary artery bypass Family History Father Coronary heart disease Social History Smoking Status: Never smoker Second Hand Exposure: No; Do You Dip or Chew Tobacco: No; Hx Alcohol Use: No Hx Substance Use: No Preferred Language: Occitan Communication Ability: Effective Hearing Ability: Normal Play Reader Required: No Beliefs That Will Affect Care: None marital status: Current Living Situation: Spouse current occupational status: retired How many Children do You have: 2 Other Information That Helps Us Care for You: No Feels Safe at Home: Yes Safety Concerns: Feels Safe At This Time Assistive Devices: Cane and Glasses Review of Systems Review of Systems: All systems reviewed & are unremarkable except as noted in Subjective Physical Exam Constitutional: WD/WN, vitals as above Eyes: Anicteric sclerae Respiratory: normal respiratory effort, lungs clear to auscultation Cardiovascular: Rate/Rhythm: regular rate and regular rhythm No edema Gastrointestinal (Abdomen): normal bowel sounds, soft, nontender, no hepatosplenomegaly Skin: no rashes, warm and dry Psychiatric: A+Ox3, euthymic affect Results & Data ([facility]) Vital Signs (Past 12 Hours) Vital Signs Temp Pulse Pulse Resp BP BP Pulse Ox 10/03/20 08:10 36.8 C 84 18 120/73 95 10/03/20 03:47 36.5 C 82 18 105/57 L 97 10/03/20 01:59 36.6 C 88 18 127/74 97 10/03/20 01:56 36.6 C 88 18 127/74 97 10/03/20 01:54 36.6 C 88 18 127/74 97 10/03/20 01:25 37.6 C H 86 86 18 124/68 124/68 97 10/03/20 00:55 36.7 C 84 84 18 105/66 105/66 99 10/03/20 00:25 37.6 C H 78 75 18 103/59 L 103/59 L 97 10/03/20 00:10 36.8 C 88 18 122/71 98 10/03/20 00:08 36.8 C 88 18 122/71 98 10/02/20 23:51 36.7 C 95 H 18 137/71 98 10/02/20 23:20 36.8 C 88 17 128/77 97 10/02/20 22:25 93 H 10/02/20 22:10 36.9 C 101 H 22 128/73 99 10/02/20 21:55 99 H 10/02/20 21:34 87 20 131/64 100 Laboratory Results 10/03/20 10/03/20 10/03/20 Range/Units 07:39 07:13 07:13 WBC (4.8-10.8) K/uL RBC (4.2-5.4) M/uL Hgb (12.0-16.0) g/dL Hct (37-47) % MCV (80-100) fL MCH (25-34) pg MCHC (32-36) g/dL RDW Std Deviation (36.4-46.3) fL RDW Coeff of Barbara (11.5-14.5) % Plt Count (130-400) K/uL MPV (7.4-10.4) fL Immature Gran % (Auto) % Neut % (Auto) % Lymph % (Auto) % Mcmullen % (Auto) % Eos % (Auto) % Baso % (Auto) % Neut # (Auto) (1.4-6.5) K/uL Lymph # (Auto) (1.2-3.4) K/uL Mcmullen # (Auto) (0.11-0.59) K/uL Eos # (Auto) (0-0.5) K/uL Baso # (Auto) (0-0.2) K/uL Immature Gran # (Auto) (0.00-0.02) K/uL Polychromasia PT (9.0-12.0) Seconds INR (0.9-1.1) APTT (21.0-31.0) Seconds PTT Ratio Sodium 139 (136-145) mmol/L Potassium 3.4 L (3.5-5.1) mmol/L Chloride 105 (98-107) mmol/L Carbon Dioxide 28 (21-32) mmol/L Anion Gap 6.0 (3-11) BUN 16 (7-18) mg/dl Creatinine 1.41 H (0.6-1.2) mg/dl Est Cr Clr Drug Dosing 31.6 ml/min Est GFR ( Amer) 41.5 ml/min Est GFR (Non-Af Amer) 35.8 ml/min BUN/Creatinine Ratio 11.5 (10-20) Glucose 148 H (70-99) mg/dl POC Glucose 172 H (70-99) mg/dl Estimat Average Glucose 137 mg/dl Hemoglobin A1c 6.4 H (4.5-5.6) % Calcium 8.4 L (8.5-10.1) mg/dl Total Bilirubin (0.2-1) mg/dl AST (15-37) U/L ALT (12-78) U/L Alkaline Phosphatase (45-117) U/L Troponin I (0-0.045) ng/ml Total Protein (6.4-8.2) gm/dl Albumin (3.4-5.0) gm/dl Globulin (2.5-4.0) gm/dl Albumin/Globulin Ratio (0.9-2) POC Stool Occult Blood (Negative) COVID-19 Eval Order SARS-CoV-2 (PCR) (Negative) Blood Type Blood Type Recheck Antibody Screen Crossmatch 10/03/20 10/03/20 10/02/20 Range/Units 07:13 06:21 22:29 WBC 8.40 (4.8-10.8) K/uL RBC 3.35 L (4.2-5.4) M/uL Hgb 10.0 L 8.6 L (12.0-16.0) g/dL Hct 30.8 L 27.4 L (37-47) % MCV 91.9 (80-100) fL MCH 29.9 (25-34) pg MCHC 32.5 (32-36) g/dL RDW Std Deviation 53.4 H (36.4-46.3) fL RDW Coeff of Barbara 16.0 H (11.5-14.5) % Plt Count 360 (130-400) K/uL MPV 9.7 (7.4-10.4) fL Immature Gran % (Auto) 0.4 % Neut % (Auto) 62.3 % Lymph % (Auto) 26.9 % Mcmullen % (Auto) 6.3 % Eos % (Auto) 3.6 % Baso % (Auto) 0.5 % Neut # (Auto) 5.24 (1.4-6.5) K/uL Lymph # (Auto) 2.26 (1.2-3.4) K/uL Mcmullen # (Auto) 0.53 (0.11-0.59) K/uL Eos # (Auto) 0.30 (0-0.5) K/uL Baso # (Auto) 0.04 (0-0.2) K/uL Immature Gran # (Auto) 0.03 H (0.00-0.02) K/uL Polychromasia PT (9.0-12.0) Seconds INR (0.9-1.1) APTT (21.0-31.0) Seconds PTT Ratio Sodium (136-145) mmol/L Potassium (3.5-5.1) mmol/L Chloride (98-107) mmol/L Carbon Dioxide (21-32) mmol/L Anion Gap (3-11) BUN (7-18) mg/dl Creatinine (0.6-1.2) mg/dl Est Cr Clr Drug Dosing ml/min Est GFR ( Amer) ml/min Est GFR (Non-Af Amer) ml/min BUN/Creatinine Ratio (10-20) Glucose (70-99) mg/dl POC Glucose 149 H (70-99) mg/dl Estimat Average Glucose mg/dl Hemoglobin A1c (4.5-5.6) % Calcium (8.5-10.1) mg/dl Total Bilirubin (0.2-1) mg/dl AST (15-37) U/L ALT (12-78) U/L Alkaline Phosphatase (45-117) U/L Troponin I (0-0.045) ng/ml Total Protein (6.4-8.2) gm/dl Albumin (3.4-5.0) gm/dl Globulin (2.5-4.0) gm/dl Albumin/Globulin Ratio (0.9-2) POC Stool Occult Blood (Negative) COVID-19 Eval Order SARS-CoV-2 (PCR) (Negative) Blood Type Blood Type Recheck Antibody Screen Crossmatch 10/02/20 10/02/20 10/02/20 Range/Units 22:20 16:02 15:00 WBC (4.8-10.8) K/uL RBC (4.2-5.4) M/uL Hgb (12.0-16.0) g/dL Hct (37-47) % MCV (80-100) fL MCH (25-34) pg MCHC (32-36) g/dL RDW Std Deviation (36.4-46.3) fL RDW Coeff of Barbara (11.5-14.5) % Plt Count (130-400) K/uL MPV (7.4-10.4) fL Immature Gran % (Auto) % Neut % (Auto) % Lymph % (Auto) % Mcmullen % (Auto) % Eos % (Auto) % Baso % (Auto) % Neut # (Auto) (1.4-6.5) K/uL Lymph # (Auto) (1.2-3.4) K/uL Mcmullen # (Auto) (0.11-0.59) K/uL Eos # (Auto) (0-0.5) K/uL Baso # (Auto) (0-0.2) K/uL Immature Gran # (Auto) (0.00-0.02) K/uL Polychromasia PT (9.0-12.0) Seconds INR (0.9-1.1) APTT (21.0-31.0) Seconds PTT Ratio Sodium (136-145) mmol/L Potassium (3.5-5.1) mmol/L Chloride (98-107) mmol/L Carbon Dioxide (21-32) mmol/L Anion Gap (3-11) BUN (7-18) mg/dl Creatinine (0.6-1.2) mg/dl Est Cr Clr Drug Dosing ml/min Est GFR ( Amer) ml/min Est GFR (Non-Af Amer) ml/min BUN/Creatinine Ratio (10-20) Glucose (70-99) mg/dl POC Glucose 134 H (70-99) mg/dl Estimat Average Glucose mg/dl Hemoglobin A1c (4.5-5.6) % Calcium (8.5-10.1) mg/dl Total Bilirubin (0.2-1) mg/dl AST (15-37) U/L ALT (12-78) U/L Alkaline Phosphatase (45-117) U/L Troponin I (0-0.045) ng/ml Total Protein (6.4-8.2) gm/dl Albumin (3.4-5.0) gm/dl Globulin (2.5-4.0) gm/dl Albumin/Globulin Ratio (0.9-2) POC Stool Occult Blood (Negative) COVID-19 Eval Order SARS-CoV-2 (PCR) NEGATIVE (Negative) Blood Type Blood Type Recheck A Negative Antibody Screen Crossmatch 10/02/20 10/02/20 10/02/20 Range/Units 15:00 14:51 14:51 WBC (4.8-10.8) K/uL RBC (4.2-5.4) M/uL Hgb (12.0-16.0) g/dL Hct (37-47) % MCV (80-100) fL MCH (25-34) pg MCHC (32-36) g/dL RDW Std Deviation (36.4-46.3) fL RDW Coeff of Barbara (11.5-14.5) % Plt Count (130-400) K/uL MPV (7.4-10.4) fL Immature Gran % (Auto) % Neut % (Auto) % Lymph % (Auto) % Mcmullen % (Auto) % Eos % (Auto) % Baso % (Auto) % Neut # (Auto) (1.4-6.5) K/uL Lymph # (Auto) (1.2-3.4) K/uL Mcmullen # (Auto) (0.11-0.59) K/uL Eos # (Auto) (0-0.5) K/uL Baso # (Auto) (0-0.2) K/uL Immature Gran # (Auto) (0.00-0.02) K/uL Polychromasia PT 11.8 (9.0-12.0) Seconds INR 1.2 H (0.9-1.1) APTT 24.8 (21.0-31.0) Seconds PTT Ratio 0.9 Sodium 139 (136-145) mmol/L Potassium 3.9 (3.5-5.1) mmol/L Chloride 107 (98-107) mmol/L Carbon Dioxide 26 (21-32) mmol/L Anion Gap 6.0 (3-11) BUN 21 H (7-18) mg/dl Creatinine 1.33 H (0.6-1.2) mg/dl Est Cr Clr Drug Dosing 33.5 ml/min Est GFR ( Amer) 44.6 ml/min Est GFR (Non-Af Amer) 38.5 ml/min BUN/Creatinine Ratio 15.9 (10-20) Glucose 171 H (70-99) mg/dl POC Glucose (70-99) mg/dl Estimat Average Glucose mg/dl Hemoglobin A1c (4.5-5.6) % Calcium 8.9 (8.5-10.1) mg/dl Total Bilirubin 1.4 H (0.2-1) mg/dl AST 25 (15-37) U/L ALT 23 (12-78) U/L Alkaline Phosphatase 78 (45-117) U/L Troponin I < 0.015 (0-0.045) ng/ml Total Protein 6.4 (6.4-8.2) gm/dl Albumin 3.4 (3.4-5.0) gm/dl Globulin 3.0 (2.5-4.0) gm/dl Albumin/Globulin Ratio 1.1 (0.9-2) POC Stool Occult Blood (Negative) COVID-19 Eval Order Covid19 at [facility] SARS-CoV-2 (PCR) (Negative) Blood Type Blood Type Recheck Antibody Screen Crossmatch 07/29/21 07/29/21 07/29/21 Range/Units 14:51 14:51 14:00 WBC 7.24 (4.8-10.8) K/uL RBC 2.07 L (4.2-5.4) M/uL Hgb 6.3 L* (12.0-16.0) g/dL Hct 20.0 L* (37-47) % MCV 96.6 (80-100) fL MCH 30.4 (25-34) pg MCHC 31.5 L (32-36) g/dL RDW Std Deviation 52.6 H (36.4-46.3) fL RDW Coeff of Barbara 15.0 H (11.5-14.5) % Plt Count 364 (130-400) K/uL MPV 9.6 (7.4-10.4) fL Immature Gran % (Auto) 0.3 % Neut % (Auto) 62.3 % Lymph % (Auto) 30.7 % Mcmullen % (Auto) 5.4 % Eos % (Auto) 1.0 % Baso % (Auto) 0.3 % Neut # (Auto) 4.52 (1.4-6.5) K/uL Lymph # (Auto) 2.22 (1.2-3.4) K/uL Mcmullen # (Auto) 0.39 (0.11-0.59) K/uL Eos # (Auto) 0.07 (0-0.5) K/uL Baso # (Auto) 0.02 (0-0.2) K/uL Immature Gran # (Auto) 0.02 (0.00-0.02) K/uL Polychromasia 1+ PT (9.0-12.0) Seconds INR (0.9-1.1) APTT (21.0-31.0) Seconds PTT Ratio Sodium (136-145) mmol/L Potassium (3.5-5.1) mmol/L Chloride (98-107) mmol/L Carbon Dioxide (21-32) mmol/L Anion Gap (3-11) BUN (7-18) mg/dl Creatinine (0.6-1.2) mg/dl Est Cr Clr Drug Dosing ml/min Est GFR ( Amer) ml/min Est GFR (Non-Af Amer) ml/min BUN/Creatinine Ratio (10-20) Glucose (70-99) mg/dl POC Glucose (70-99) mg/dl Estimat Average Glucose mg/dl Hemoglobin A1c (4.5-5.6) % Calcium (8.5-10.1) mg/dl Total Bilirubin (0.2-1) mg/dl AST (15-37) U/L ALT (12-78) U/L Alkaline Phosphatase (45-117) U/L Troponin I (0-0.045) ng/ml Total Protein (6.4-8.2) gm/dl Albumin (3.4-5.0) gm/dl Globulin (2.5-4.0) gm/dl Albumin/Globulin Ratio (0.9-2) POC Stool Occult Blood Positive A (Negative) COVID-19 Eval Order SARS-CoV-2 (PCR) (Negative) Blood Type A Negative Blood Type Recheck Antibody Screen NEGATIVE Crossmatch See Detail
[2020-10-03] MEDS ORDERED: TORSEMIDE 20 MG TAB PO SCH (09:00)
[2020-10-03] MEDS: METOPROLOL SUCC 25MG EXT REL TAB PO SCH (09:07)
[2020-10-03] MEDS: POTASSIUM CHLORIDE CRTAB 20 MEQ TABCR PO SCH (09:07)
[2020-10-03] MEDS: FLUTICASONE FUROATE 200MCG 14 PUFFS/INHALER INH SCH (09:08)
[2020-10-03] MEDS: FERROUS SULFATE 325 MG TAB PO SCH ×2 (09:11→17:11)
[2020-10-03 10:06] LABS: Estimated Average Glucose 137 mg/dl; Hemoglobin A1C 6.4 % (4.5-5.6)
[2020-10-03] MEDS ORDERED: DIGOXIN 0.125 MG TAB PO SCH (16:00)
[2020-10-03] MEDS ORDERED: POTASSIUM CHLORIDE CRTAB 20 MEQ TABCR PO SCH (17:00)
--- NOTE | 2020-10-03 20:22 | Hospitalist Progress Note ---
Date of Service October 03, 2020 Assessment & Plan (1) Acute GI bleeding: Plan: Dark stool concerning for acute GI bleeding, positive occult blood. Blood loss anemia with symptoms over the last 2 weeks, improved with 2 units transfused overnight. Continue holding Coumadin and aspirin at this time. Continue Protonix drip. Per GI recommendations there is no persistent melena, hematochezia or hematemesis since admission and given that she feels somewhat better will defer endoscopy at this time. Continue to trend H&H, BUN and reassess clinically for additional treatments. (2) Acute blood loss anemia: Plan: Symptomatic anemia improved with 2 units of blood. Trend H&H in a.m. Continue plan per #1. (3) Coronary artery disease: Plan: H/o CABG Stable, no significant EKG changes, troponin negative Continue statin, Toprol Holding aspirin (4) Atrial fibrillation: Plan: Continue digoxin, Toprol Holding coumadin in setting of severe anemia (5) Chronic systolic heart failure: Plan: Ischemic cardiomyopathy, compensated, appears euvolemic, continue daily torsemide per home regimen. (6) Diabetes mellitus, type II: Plan: A1C is 6.4 Not on home medications Removed fingersticks and insulin coverage as this is not needed at this time. (7) CKD (chronic kidney disease), stage III: Plan: Kidney function at baseline, monitor BMP (8) Interstitial lung disease: Plan: Breathing well on room air. Reported in recent PCP note to have interstitial lung disease and recently gave her a trial of Flovent with a rescue inhaler as needed. Pulmonology follow-up recommended as outpatient. (9) DVT prophylaxis: Plan: DVT Ppx: SCDs, no chemoprophylaxis secondary to acute GI bleeding Code status: FULL Disposition-to home when medically stable [facility] and Anticipated Discharge Date Admission Date: October 02, 2020 Subjective 73-year-old female with history of atrial fibrillation on Coumadin presented for worsening shortness of breath admitted for symptomatic anemia. This morning she is feeling much better after 2 units of blood overnight and reports her color is improved. She denies any chest pain, overt bleeding or other issues. Retrospectively she notes that her stool had changed color but she denies any [place] blood per rectum over the last 2 weeks. Symptoms have been ongoing for 2 weeks time. Review of Systems Review of Systems: All systems were reviewed and negative except as indicated in HPI above. Physical Exam Physical Exam: CONSTITUTIONAL: WNWD, vitals as above, generally well- appearing EYES: normal conjunctivae, no scleral icterus ENT: external ear and nose normal, MMM RESPIRATORY: clear to auscultation bilaterally, no crackles, rales or wheezes, normal respiratory effort CARDIOVASCULAR: regular rate and rhythm, S1 and 2 heard without murmurs, gallops or rubs, no JVD, no peripheral edema GASTROINTESTINAL: soft, nontender, nondistended, no guarding MUSCULOSKELETAL: strength 5/5 throughout, head is normocephalic and atraumatic SKIN: warm and dry NEUROLOGIC: CN 2-12 grossly intact, normal cognition, normal speech, no tremor PSYCHIATRIC: alert cooperative and oriented to person, place and time. Results & Data Results & Data ([facility]) Vital Signs (Past 12 Hours) Vital Signs Temp Pulse Pulse Resp BP Pulse Ox 10/03/20 19:47 37.0 C 90 18 111/72 96 10/03/20 17:10 89 10/03/20 12:12 36.5 C 72 18 115/63 96 Laboratory Results Short CBC 10/02/20 10/03/20 Range/Units 22:29 07:13 WBC 8.40 (4.8-10.8) K/uL Hgb 8.6 L 10.0 L (12.0-16.0) g/dL Hct 27.4 L 30.8 L (37-47) % Plt Count 360 (130-400) K/uL BMP 10/03/20 07:13 Sodium 139 Potassium 3.4 L Chloride 105 Carbon Dioxide 28 BUN 16 Creatinine 1.41 H Glucose 148 H Calcium 8.4 L Medications Administered Current Inpatient Medications Acetaminophen (Acetaminophen 325 Mg Tab) 650 mg PO Q6H PRN PRN Reason: Fever/pain Stop: 11/02/20 01:33 Last Admin: 10/03/20 01:41 Dose: 650 mg Documented by: Albuterol (Albuterol Hfa 8 Gm Inhaler) 2 puffs INH QID PRN PRN Reason: Shortness Of Breath Stop: 11/01/20 22:08 Digoxin (Digoxin 0.125 Mg Tab) 0.125 mg PO [id number] NATI Stop: 11/02/20 15:59 Last Admin: 10/03/20 17:10 Dose: 0.125 mg Documented by: Ferrous Sulfate (Ferrous Sulfate 325 Mg Tab) 325 mg PO BIDM [facility] Stop: 11/02/20 07:59 Last Admin: 10/03/20 17:11 Dose: 325 mg Documented by: Fluticasone Furoate (Fluticasone Furoate 200mcg 14 Puffs/Inhaler) 1 puffs INH DAILY NATI Stop: 11/02/20 08:59 Last Admin: 10/03/20 09:08 Dose: 1 puffs Documented by: Pantoprazole Sodium 40 mg/ (Dextrose) 100 mls @ 20 mls/hr IV Q5H NATI Stop: 11/01/20 13:59 Last Admin: 10/03/20 17:12 Dose: 8 mg/hr, 20 mls/hr Documented by: Metoprolol Succinate (Metoprolol Succ 25mg Ext Rel Tab) 25 mg PO DAILY [facility] Stop: 11/02/20 08:59 Last Admin: 10/03/20 09:07 Dose: 25 mg Documented by: Potassium Chloride (Potassium Chloride Crtab 20 Meq Tabcr) 40 meq PO QAM [facility] Stop: 11/02/20 08:59 Last Admin: 10/03/20 09:07 Dose: 40 meq Documented by: Potassium Chloride (Potassium Chloride Crtab 20 Meq Tabcr) 20 meq PO 1700 [facility] Stop: 11/02/20 16:59 Last Admin: 10/03/20 17:11 Dose: 20 meq Documented by: Torsemide (Torsemide 20 Mg Tab) 60 mg PO QAM [facility] Stop: 11/02/20 02:24 Last Admin: 10/03/20 02:30 Dose: 60 mg Documented by:
[2020-10-04] MEDS ORDERED: COUGH DROP (SUGAR FREE) LOZ 24 LOZ/1 BOX BUCCAL ONE (00:29)
[2020-10-04] MEDS: ACETAMINOPHEN 325 MG TAB PO PRN (01:30)
[2020-10-04] MEDS: PANTOprazole 40 MG in DEXTROSE 5% 100 ML IV SCH ×3 (02:56→12:40)
[2020-10-04 06:56] LABS: BUN Creatinine Ratio 11.4 (10-20); Calcium 8.6 mg/dl (8.5-10.1); Creatinine Clr Calc Pharmacy 28.8 ml/min; Potassium 3.7 mmol/L (3.5-5.1)
[2020-10-04] MEDS: FERROUS SULFATE 325 MG TAB PO SCH ×2 (08:25→16:22)
[2020-10-04] MEDS: FLUTICASONE FUROATE 200MCG 14 PUFFS/INHALER INH SCH (08:25)
[2020-10-04] MEDS: METOPROLOL SUCC 25MG EXT REL TAB PO SCH (08:26)
[2020-10-04] MEDS: TORSEMIDE 20 MG TAB PO SCH (08:26)
[2020-10-04] MEDS: POTASSIUM CHLORIDE CRTAB 20 MEQ TABCR PO SCH (08:26)
[2020-10-04 08:53] LABS: Hematocrit (blood only) 30.6 % (37-47); Hemoglobin 9.9 g/dL (12.0-16.0); Mean Corpuscular Hemoglobin 29.5 pg (25-34); Mean Corpuscular Hgb Conc 32.4 g/dL (32-36); Mean Corpuscular Volume 91.1 fL (80-100); Mean Platelet Volume 9.8 fL (7.4-10.4); Platelet Count 376 K/uL (130-400); RDW Coefficient of Variation 15.6 % (11.5-14.5); RDW Standard Deviation 51.8 fL (36.4-46.3); Red Blood Count 3.36 M/uL (4.2-5.4); White Blood Count 8.88 K/uL (4.8-10.8)
--- NOTE | 2020-10-04 13:10 | Hospitalist Progress Note ---
Date of Service October 04, 2020 Assessment & Plan (1) Acute GI bleeding: Plan: Dark stool concerning for acute GI bleeding, positive occult blood. Blood loss anemia with symptoms over the last 2 weeks, improved with 2 units transfused overnight. Continue holding Coumadin and aspirin at this time. Received treatment with protonix drip ongoing. Per GI recommendations there is no persistent melena, hematochezia or hematemesis since admission and given that she feels somewhat better will defer endoscopy at this time. As H/H stable, will stop PPI drip, start daily protonix and advance her diet. Encouraged to ambulate in order to have BM prior to discharge. Miralax also ordered. (2) Acute blood loss anemia: Plan: Symptomatic anemia improved with 2 units of blood. H/H stable. Continue plan per #1. Will also place her on a heparin drip to ensure blood counts are stable and she has no further episodes of melena prior to going home on coumadin. (3) Coronary artery disease: Plan: H/o CABG Stable, no significant EKG changes, troponin negative Continue statin, Toprol, restart aspirin in am. (4) Atrial fibrillation: Plan: Continue digoxin, Toprol-heparin challenge prior to discharge. (5) Chronic systolic heart failure: Plan: Ischemic cardiomyopathy, compensated, appears euvolemic, continue daily torsemide per home regimen. (6) Diabetes mellitus, type II: Plan: A1C is 6.4 Not on home medications Removed fingersticks and insulin coverage as this is not needed at this time. (7) CKD (chronic kidney disease), stage III: Plan: Kidney function at baseline, monitor BMP (8) Interstitial lung disease: Plan: Breathing well on room air. Reported in recent PCP note to have interstitial lung disease and recently gave her a trial of Flovent with a rescue inhaler as needed. It is not clear where this diagnosis is coming from. Pulmonology follow-up recommended as outpatient. (9) DVT prophylaxis: Plan: DVT Ppx: SCDs, no chemoprophylaxis secondary to acute GI bleeding Code status: FULL Disposition-to home when medically stable, likely tomorrow. Renae Rodrigues DO [facility]ist Admission and Anticipated Discharge Date Admission Date: October 02, 2020 Subjective 73-year-old female with history of atrial fibrillation on Coumadin presented for worsening shortness of breath admitted for symptomatic anemia. Continues to feel well but reports fatigue this morning tolerating PO No BM yet Denies pain OK to advance diet. Review of Systems Review of Systems: All systems were reviewed and negative except as indicated in HPI above. Physical Exam Physical Exam: CONSTITUTIONAL: WNWD, vitals as above, generally well- appearing EYES: normal conjunctivae, no scleral icterus ENT: external ear and nose normal, MMM RESPIRATORY: clear to auscultation bilaterally, no crackles, rales or wheezes, normal respiratory effort CARDIOVASCULAR: regular rate and rhythm, S1 and 2 heard without murmurs, gallops or rubs, no JVD, no peripheral edema GASTROINTESTINAL: soft, nontender, nondistended, no guarding MUSCULOSKELETAL: strength 5/5 throughout, head is normocephalic and atraumatic SKIN: warm and dry NEUROLOGIC: CN 2-12 grossly intact, normal cognition, normal speech, no tremor PSYCHIATRIC: alert cooperative and oriented to person, place and time. Results & Data Results & Data ([facility]) Vital Signs (Past 12 Hours) Vital Signs Temp Pulse Pulse Resp BP BP Pulse Ox 10/04/20 11:48 36.5 C 77 18 108/72 97 10/04/20 08:00 71 10/04/20 02:32 36.6 C 80 18 107/68 97 Laboratory Results Short CBC 10/04/20 Range/Units 05:57 WBC 8.88 (4.8-10.8) K/uL Hgb 9.9 L (12.0-16.0) g/dL Hct 30.6 L (37-47) % Plt Count 376 (130-400) K/uL BMP 10/04/20 05:57 Sodium 137 Potassium 3.7 Chloride 104 Carbon Dioxide 26 BUN 18 Creatinine 1.55 H Glucose 117 H Calcium 8.6 Medications Administered Current Inpatient Medications Acetaminophen (Acetaminophen 325 Mg Tab) 650 mg PO Q6H PRN PRN Reason: Fever/pain Stop: 11/02/20 01:33 Last Admin: 10/04/20 01:30 Dose: 650 mg Documented by: Albuterol (Albuterol Hfa 8 Gm Inhaler) 2 puffs INH QID PRN PRN Reason: Shortness Of Breath Stop: 11/01/20 22:08 Digoxin (Digoxin 0.125 Mg Tab) 0.125 mg PO MoWeFr@1600 NATI Stop: 11/02/20 15:59 Last Admin: 10/03/20 17:10 Dose: 0.125 mg Documented by: Ferrous Sulfate (Ferrous Sulfate 325 Mg Tab) 325 mg PO BIDM [facility] Stop: 11/02/20 07:59 Last Admin: 10/04/20 08:25 Dose: 325 mg Documented by: Fluticasone Furoate (Fluticasone Furoate 200mcg 14 Puffs/Inhaler) 1 puffs INH DAILY NATI Stop: 11/02/20 08:59 Last Admin: 10/04/20 08:25 Dose: 1 puffs Documented by: Pantoprazole Sodium 40 mg/ (Dextrose) 100 mls @ 20 mls/hr IV Q5H [facility] Stop: 11/01/20 13:59 Last Admin: 10/04/20 12:40 Dose: 8 mg/hr, 20 mls/hr Documented by: Metoprolol Succinate (Metoprolol Succ 25mg Ext Rel Tab) 25 mg PO DAILY [facility] Stop: 11/02/20 08:59 Last Admin: 10/04/20 08:26 Dose: 25 mg Documented by: Potassium Chloride (Potassium Chloride Crtab 20 Meq Tabcr) 40 meq PO QAM [facility] Stop: 11/02/20 08:59 Last Admin: 10/04/20 08:26 Dose: 40 meq Documented by: Potassium Chloride (Potassium Chloride Crtab 20 Meq Tabcr) 20 meq PO 1700 [facility] Stop: 11/02/20 16:59 Last Admin: 10/03/20 17:11 Dose: 20 meq Documented by: Torsemide (Torsemide 20 Mg Tab) 60 mg PO QAM [facility] Stop: 11/02/20 02:24 Last Admin: 10/04/20 08:26 Dose: 60 mg Documented by:
[2020-10-04] MEDS ORDERED: Heparin IV Adult Wt-Based Standard *NO* Bolus Protocol IV SCH (16:44)
[2020-10-04] MEDS ORDERED: HEPARIN SODIUM/DEXTROSE 25,000 UNITS/500 ML BAG IV SCH (17:00)
[2020-10-04] MEDS: ASCORBIC ACID 500 MG TAB PO SCH (20:46)
[2020-10-05 03:26] LABS: Hematocrit (blood only) 32.1 % (37-47); Hemoglobin 10.6 g/dL (12.0-16.0); Mean Corpuscular Hemoglobin 29.8 pg (25-34); Mean Corpuscular Volume 90.2 fL (80-100); Mean Platelet Volume 9.7 fL (7.4-10.4); Platelet Count 404 K/uL (130-400); RDW Coefficient of Variation 15.1 % (11.5-14.5); RDW Standard Deviation 49.1 fL (36.4-46.3); Red Blood Count 3.56 M/uL (4.2-5.4); White Blood Count 9.69 K/uL (4.8-10.8)
[2020-10-05 03:43] LABS: BUN Creatinine Ratio 12.5 (10-20); Calcium 8.7 mg/dl (8.5-10.1); Creatinine Clr Calc Pharmacy 28.7 ml/min; Est GFR (African American) 37.9 ml/min; Est GFR (Non-African American) 32.7 ml/min; Potassium 3.6 mmol/L (3.5-5.1)
[2020-10-05 03:50] LABS: Partial Thromboplastin Ratio 4.6
[2020-10-05 04:01] LABS: Partial Thromboplastin Time 120.7 Seconds (21.0-31.0)
[2020-10-05] MEDS: FLUTICASONE FUROATE 200MCG 14 PUFFS/INHALER INH SCH (08:44)
[2020-10-05] MEDS: FERROUS SULFATE 325 MG TAB PO SCH ×2 (08:44→16:02)
[2020-10-05] MEDS: TORSEMIDE 20 MG TAB PO SCH (08:45)
[2020-10-05] MEDS: POTASSIUM CHLORIDE CRTAB 20 MEQ TABCR PO SCH (08:45)
[2020-10-05] MEDS: METOPROLOL SUCC 25MG EXT REL TAB PO SCH (08:45)
[2020-10-05] MEDS ORDERED: PANTOprazole 40 MG TAB PO SCH (09:00)
[2020-10-05] MEDS ORDERED: POLYETHYLENE (MIRALAX) 17 GM PACK PO PRN (09:07)
[2020-10-05] MEDS: ASCORBIC ACID 500 MG TAB PO SCH (09:44)
[2020-10-05] MEDS ORDERED: ASPIRIN 81 MG ECTAB PO SCH (10:00)
[2020-10-05 12:40] LABS: Partial Thromboplastin Ratio 3.3
--- NOTE | 2020-10-05 15:12 | Discharge Summary ---
Date of Service October 05, 2020 Admission HPI Per Admitting Provider This is a 73-year-old female with PMHx paroxysmal atrial fibrillation on anticoagulation, history of CAD status post CABG, ischemic cardiomyopathy, type 2 diabetes and other medical problems listed below who presents with worsening shortness of breath over the past few weeks. Patient is more short of breath with exertion. Associated symptoms include lightheadedness, palpitations, generalized weakness. Is also noted dark brown to black stool over the past week that is different than baseline. No bright red blood per rectum. Also endorsing chronic chest pain that is unchanged. Denies any fever or chills. No congestion, wheezing, nausea, vomiting, abdominal pain, dysuria, diarrhea or constipation. Was seen in outpatient setting for worsening shortness of breath which was thought to be multifactorial in setting of known interstitial lung disease. CBC was drawn, revealing hemoglobin of 6.5, much different than previous hemoglobin of 13 back in July 2020. Was sent to the ED for further evaluation. Patient is on aspirin and Coumadin. Takes iron supplementation. Admission Exam Per Admitting Provider General Appearance: WD/WN, vitals as above, NAD, sitting up in bed, pleasant, pale Head: normocephalic, atraumatic Eyes: normal inspection, PERRL, conjunctivae normal, anicteric sclerae ENT: external ear and nose normal, oropharynx normal Neck: normal visual inspection, trachea midline, no thyromegaly Respiratory: normal respiratory effort, lungs clear to auscultation, no wheeze, rales, rhonchi. No accessory muscle use Cardiovascular: regular rate, rhythm, no murmur, normal peripheral pulses, no BLE edema. Vessels: no JVD Chest: normal inspection of chest Abdomen/GI: normal bowel sounds, soft, nontender, no hepatosplenomegaly Extremities/Musculoskeletal: no cyanosis or clubbing, extremities motor strength 5/5 Neurologic: PERRL, EOMI, accommodation nl, no face palsy, no dysarthria, CN's II-XI intact bilaterally and moves all extremities Psychiatric: A+Ox3, euthymic affect Skin: no rashes, pale, warm/dry Principal Diagnosis Acute GI bleeding Acute blood loss anemia Discharge Exam CONSTITUTIONAL: WNWD, vitals as above, generally well-appearing EYES: normal conjunctivae, no scleral icterus ENT: external ear and nose normal, MMM RESPIRATORY: clear to auscultation bilaterally, no crackles, rales or wheezes, normal respiratory effort CARDIOVASCULAR: regular rate and rhythm, S1 and 2 heard without murmurs, gallops or rubs, no JVD, no peripheral edema GASTROINTESTINAL: soft, nontender, nondistended, no guarding MUSCULOSKELETAL: strength 5/5 throughout, head is normocephalic and atraumatic SKIN: warm and dry NEUROLOGIC: CN 2-12 grossly intact, normal cognition, normal speech, no tremor PSYCHIATRIC: alert cooperative and oriented to person, place and time. Discharge Data Allergies Allergy/AdvReac Type Severity Reaction Status Date / Time naproxen Allergy Unknown CAN'T Verified 10/02/20 15:09 REMEMBER RENE Inhibitors AdvReac Intermediate Cough Verified 10/02/20 15:09 Consultations 10/02/20 14:38 ED Decision to Admit Routine 10/02/20 15:27 Consult Gastroenterology Routine Ordered Studies Laboratory Results WBC 9.69 K/uL (4.8-10.8) 10/05/20 03:06 RBC 3.56 M/uL (4.2-5.4) L 10/05/20 03:06 Hgb 10.6 g/dL (12.0-16.0) L 10/05/20 03:06 Hct 32.1 % (37-47) L 10/05/20 03:06 MCV 90.2 fL (80-100) 10/05/20 03:06 MCH 29.8 pg (25-34) 10/05/20 03:06 MCHC 33.0 g/dL (32-36) 10/05/20 03:06 RDW Std Deviation 49.1 fL (36.4-46.3) H 10/05/20 03:06 RDW Coeff of Barbara 15.1 % (11.5-14.5) H 10/05/20 03:06 Plt Count 404 K/uL (130-400) H 10/05/20 03:06 MPV 9.7 fL (7.4-10.4) 10/05/20 03:06 Immature Gran % (Auto) 0.4 % 10/03/20 07:13 Neut % (Auto) 62.3 % 10/03/20 07:13 Lymph % (Auto) 26.9 % 10/03/20 07:13 [place] % (Auto) 6.3 % 10/03/20 07:13 Eos % (Auto) 3.6 % 10/03/20 07:13 Baso % (Auto) 0.5 % 10/03/20 07:13 Neut # (Auto) 5.24 K/uL (1.4-6.5) 10/03/20 07:13 Lymph # (Auto) 2.26 K/uL (1.2-3.4) 10/03/20 07:13 [place] # (Auto) 0.53 K/uL (0.11-0.59) 10/03/20 07:13 Eos # (Auto) 0.30 K/uL (0-0.5) 10/03/20 07:13 Baso # (Auto) 0.04 K/uL (0-0.2) 10/03/20 07:13 Immature Gran # (Auto) 0.03 K/uL (0.00-0.02) H 10/03/20 07:13 Polychromasia 1+ 10/02/20 14:51 PT 11.8 Seconds (9.0-12.0) 10/02/20 14:51 INR 1.2 (0.9-1.1) H 10/02/20 14:51 APTT 88.0 Seconds (21.0-31.0) H* 10/05/20 12:07 PTT Ratio 3.3 10/05/20 12:07 Sodium 135 mmol/L (136-145) L 10/05/20 03:06 Potassium 3.6 mmol/L (3.5-5.1) 10/05/20 03:06 Chloride 104 mmol/L (98-107) 10/05/20 03:06 Carbon Dioxide 25 mmol/L (21-32) 10/05/20 03:06 Anion Gap 6.0 (3-11) 10/05/20 03:06 BUN 19 mg/dl (7-18) H 10/05/20 03:06 Creatinine 1.52 mg/dl (0.6-1.2) H 10/05/20 03:06 Est Cr Clr Drug Dosing 28.7 ml/min 10/05/20 03:06 Est GFR ( Amer) 37.9 ml/min 10/05/20 03:06 Est GFR (Non-Af Amer) 32.7 ml/min 10/05/20 03:06 BUN/Creatinine Ratio 12.5 (10-20) 10/05/20 03:06 Glucose 172 mg/dl (70-99) H 10/05/20 03:06 POC Glucose 201 mg/dl (70-99) H 10/04/20 11:09 Estimat Average Glucose 137 mg/dl 10/03/20 07:13 Hemoglobin A1c 6.4 % (4.5-5.6) H 10/03/20 07:13 Calcium 8.7 mg/dl (8.5-10.1) 10/05/20 03:06 Total Bilirubin 1.4 mg/dl (0.2-1) H 10/02/20 14:51 AST 25 U/L (15-37) 10/02/20 14:51 ALT 23 U/L (12-78) 10/02/20 14:51 Alkaline Phosphatase 78 U/L (45-117) 10/02/20 14:51 Troponin I < 0.015 ng/ml (0-0.045) 10/02/20 14:51 Total Protein 6.4 gm/dl (6.4-8.2) 10/02/20 14:51 Albumin 3.4 gm/dl (3.4-5.0) 10/02/20 14:51 Globulin 3.0 gm/dl (2.5-4.0) 10/02/20 14:51 Albumin/Globulin Ratio 1.1 (0.9-2) 10/02/20 14:51 POC Stool Occult Blood Positive (Negative) A 10/02/20 14:00 COVID-19 Eval Order Covid19 at [facility] 10/02/20 15:00 SARS-CoV-2 (PCR) NEGATIVE (Negative) 10/02/20 15:00 Blood Type A Negative 10/02/20 14:51 Blood Type Recheck A Negative 10/02/20 16:02 Antibody Screen NEGATIVE 10/02/20 14:51 Crossmatch See Detail 10/02/20 14:51 Hospital Course (1) Acute GI bleeding: Dark stool concerning for acute GI bleeding, positive occult blood. Blood loss anemia with symptoms over the last 2 weeks, improved with 2 units transfused overnight. Coumadin and aspirin were held on admission. Received treatment with protonix drip for two days. Per GI recommendations there is no persistent melena, hematochezia or hematemesis since admission and given that she feels somewhat better; will defer endoscopy at this time. H/H remained stable, diet was advanced and protonix drip was changed to oral PPI. No further bleeding issues in the hospital (2) Acute blood loss anemia: Symptomatic anemia improved with 2 units of blood. H/H stable. She was placed on a heparin drip to ensure blood counts are stable and she has no further episodes of melena prior to going home on coumadin. (3) Coronary artery disease: H/o CABG Stable, no significant EKG changes, troponin negative Continue statin, Toprol, restart aspirin in am. (4) Atrial fibrillation: Continue digoxin, Toprol-heparin challenge prior to discharge. (5) Chronic systolic heart failure: Ischemic cardiomyopathy, compensated, appears euvolemic, continue daily torsemide per home regimen. (6) Diabetes mellitus, type II: A1C is 6.4, diet controlled.. (7) CKD (chronic kidney disease), stage III: Kidney function at baseline Total Time Total Time Spent Total Time Spent (In Minutes): 60 Discharge Plan Discharge Items Patient Disposition: Home - Self-Care Reason For Visit: SYMPTOMATIC ANEMIA, GI BLEED Discharge Diagnosis: Acute GI bleeding Acute blood loss anemia Activity: Resume your previous activity Non-emergency contact: Primary Care Provider Call non-emergency contact if: you have any medication questions, your symptoms worsen, your pain is not controlled, your pain is worsening, your pain is unusual for you, your pain is concerning for you and you have a fever Follow-up/Referrals: Jacek Baltazar, [Primary Care Provider] - Diet: Heart Healthy Addtl Attending Provider Instructions: Please take all medications as instructed on discharge list below. You are fine to restart your coumadin at your current dose of 2mg once daily. Please have the anticoagulation clinic recheck your INR in a few days. You may need some additional adjustments to your dose in order to get to goal INR of 2- 3. It is recommended that you follow-up with your primary care physician in the next week to ensure you are still doing well since going home, ensure your INR levels are moving in the right direction, recheck a CBC, and make a referral to Gastroenterology if needed. Please continue to take PROTONIX once daily. It was a pleasure taking care of you! Please call if you have any questions or problems. You can reach a [facility] hospitalist on duty at [facility] 24 hours a day by calling [phone]. Take care of yourself. Renae Rodrigues DO [facility] Hospitalist Pending Studies at Discharge: No Stand-Alone Forms: My [facility] Medications and DC Order Prescriptions: New pantoprazole 40 mg Tablet,Delayed Release (Dr/Ec) 40 mg PO QAM Qty: 30 RF: 0 Continued docusate sodium 100 mg capsule 100 mg PO BID RF: 0 ferrous sulfate 325 mg (65 mg iron) tablet 325 mg PO BID RF: 0 aspirin 81 mg tablet,chewable 81 mg PO QAM RF: 0 warfarin 2 mg tablet 2 mg PO PM RF: 0 ascorbic acid (vitamin C) 250 mg tablet 250 mg PO BID RF: 0 digoxin 125 mcg (0.125 mg) tablet 125 mcg PO MONWEDFRI RF: 0 torsemide 20 mg tablet 60 mg PO QAM RF: 0 Flovent HFA 220 mcg/actuation HFA aerosol inhaler 1 puff INHALATION DIRECTED RF: 0 albuterol sulfate 90 mcg/actuation HFA aerosol inhaler 2 puff INHALATION QID PRN (Reason: Shortness Of Breath) RF: 0 rosuvastatin 40 mg tablet 40 mg PO HS RF: 0 potassium chloride 20 mEq Tablet Extended Release 20 meq PO UD RF: 0 metoprolol succinate 25 mg tablet extended release 24 hr 25 mg PO DAILY RF: 0 Discharge Orders: Discharge Order (Routine); Ordered 10/05/20 Ordered By: Renae Epstein/Other Patient Handouts: Anemia, Iron Supplements Admission Data Admit Date/Time: 10/02/20 16:48 Attending Provider: Renae Rodrigues Admit Provider: Rahat Baires Primary Care Provider: Jacek Baltazar Other Providers: Rahat Baires ; Jhoan Benitez Other Interventions: Discharge Summary Assessment (RN) Last Done: 10/05/20 15:59
[2020-10-05] MEDS ORDERED: WARFARIN SOD 2 MG TAB PO SCH (16:00)
== END 2020-10-05 16:55 | disposition home or self-care (01) | DRG 378 ==
LOC: ED 12:34 → 2S 16:48 → SUATTDRO 16:48 → 2S 21:34 → 3E 10-04 13:08

== ENCOUNTER 2024-11-12 19:58 | Inpatient (IN) ==
[2024-11-12 20:41] LABS: Appearance Urine Turbid (Clear); Glucose Urine UA Negative (Negative); Hematocrit (blood only) 35.4 % (37.0-47.0); Hemoglobin 11.8 g/dl (12.0-16.0); Immature Granulocytes # (auto) 0.06 K/uL (0.01-0.20); Immature Granulocytes % (auto) 0.4 %; Mean Corpuscular Hemoglobin 31.8 pg (25.0-34.0); Mean Corpuscular Volume 95.4 fL (80.0-100.0); Platelet Count 382 K/uL (130-400); RDW Standard Deviation 43.7 fL (36.4-46.3); Red Blood Count 3.71 M/uL (4.20-5.40); White Blood Count 13.67 K/ul (4.8-10.8)
[2024-11-12 20:54] LABS: Bacteria Urine Automated 4+ (None Seen); WBC Urine Automated >50 /hpf (0-5)
[2024-11-12 20:58] LABS: Alanine Aminotransferase 20.0 U/L (7-52); Albumin Globulin Ratio 1.3 (0.9-2); Alkaline Phosphatase 71.0 U/L (34-104); Anion Gap 13.0 (3-11); Bilirubin,Total 1.5 mg/dl (0.2-1.0); Blood Urea Nitrogen 21.0 mg/dl (6-23); Calcium 9.7 mg/dl (8.6-10.3); Carbon Dioxide 26.0 mmol/L (21-32); Chloride 99.0 mmol/L (98-107); Creatinine Clr Calc Pharmacy 20.3 ml/min; Globulin 3.0 gm/dl (2.5-4.0); Glucose 227.0 mg/dl (70-99(Fasting)); Lipase 80.0 U/L (11-82); Potassium 3.7 mmol/L (3.5-5.1); Sodium 138.0 mmol/L (136-145); Total Protein 6.9 gm/dl (6.0-8.3)
[2024-11-12] MEDS: SODIUM CHLORIDE 0.9% 500 ML IV ONE (21:41)
[2024-11-12] MEDS: SODIUM CHLORIDE 0.9% 1,000 ML IV ONE (21:42)
[2024-11-12] MEDS: ACETAMINOPHEN 1,000 MG/100 ML VIAL IV STA (21:46)
[2024-11-12] MEDS: OPTIRAY 320 100ml IV ONE (22:42)
[2024-11-12] MEDS: cefTRIAXone SODIUM 1,000 MG/50 ML BAG IV STA (22:52)
--- NOTE | 2024-11-12 23:17 | CT Scan Report ---
Exam(s): CT ABDOMEN + PELVIS With Contrast IV Amt: 93 cc opti 320 EXAM: CT Abdomen and Pelvis With Intravenous Contrast CLINICAL HISTORY: Reason for exam: lower abd pain, uti, ? pyelo/abscess. TECHNIQUE: Axial computed tomography images of the abdomen and pelvis with intravenous contrast. CTDI is 10.55 mGy and DLP is 477.64 mGy-cm. Automated exposure control was utilized for the study. A dose lowering technique was utilized adhering to the principles of ALARA. CONTRAST: Patient received 93 cc opti 320 of IV contrast COMPARISON: No relevant prior studies available. FINDINGS: Lung bases: No consolidation. ABDOMEN: Liver: No mass. Gallbladder and bile ducts: Gallbladder contains calculi.. No ductal dilation. Pancreas: No mass. No ductal dilation. Spleen: No splenomegaly. Adrenals: No mass. Kidneys and ureters: No solid mass. No hydronephrosis. Stomach and bowel: There is a small hiatal hernia. Stomach is decompressed. The colon is distended containing a moderate to large amount of stool. There appear to be diverticula present on the terminal ileum. No inflammatory changes are seen. PELVIS: Appendix: No findings to suggest acute appendicitis. Bladder: No calculi are noted within the bladder.. Reproductive: There may be fluid within the endometrial canal or there may be thickening of the endometrium. ABDOMEN and PELVIS: Intraperitoneal space: No free air. No significant fluid collection. Bones/joints: There are marked hypertrophic degenerative changes in the spine. There is a compression fracture at the T12 vertebral body. Soft tissues: There is an umbilical hernia containing fat.. Vasculature: There are atherosclerotic changes. No abdominal aortic aneurysm. Lymph nodes: No enlarged lymph nodes. IMPRESSION: Cholelithiasis. There is a small hiatal hernia. There may be fluid within the endometrial canal or there may be thickening of the endometrium. This should be further evaluated with use of a nonemergent pelvic ultrasound. There is a compression fracture at the T12 vertebral body. This is of undetermined age. See discussion above Electronically signed by: Alfonso Aguilar MD 11/12/24 23:16 PM
--- NOTE | 2024-11-12 23:28 | Emergency Department Note ---
History of Present Illness General Chief complaint: GI Assessment Stated complaint: BOWEL PROBLEMS, DEHYDRATION, TREMBLING Time Seen by Provider: 11/12/24 21:25 History of Present Illness This 79-year-old female presents the ER complaining of subjective fever and chills, nausea, upset stomach and diarrhea for the past day. Patient denies chest pain, cough, congestion. Patient is febrile in the ER. I did order septic workup when I evaluated the patient but protocols were already ordered prior to me seeing the patient. Home Medications Medication Instructions Recorded Confirmed Type aspirin 81 mg chewable tablet 81 mg PO QAM 02/16/19 11/12/24 History ascorbic acid (vitamin C) 250 mg 250 mg PO QPM 05/01/20 11/12/24 History tablet digoxin 125 mcg (0.125 mg) tablet 125 mcg PO 3XWK 05/01/20 11/12/24 History metoprolol succinate 25 mg 25 mg PO QAM 10/02/20 11/12/24 History tablet,extended release 24 hr cetirizine 10 mg tablet (Zyrtec) 10 mg PO DAILY PRN Congestion 12/03/21 11/12/24 History cholecalciferol (vitamin D3) 25 25 mcg PO DAILY 12/03/21 11/12/24 History mcg (1,000 unit) capsule (Vitamin D3) rosuvastatin 40 mg tablet 40 mg PO DAILY 12/03/21 11/12/24 History pantoprazole 40 mg tablet,delayed 40 mg PO DAILY 12/21/21 11/12/24 History release bupropion HCl 150 mg 24 hr tablet, 150 mg PO QAM 10/23/24 11/12/24 History extended release docusate sodium 100 mg capsule 100 mg PO BID 10/23/24 11/12/24 History gabapentin 100 mg capsule 100 mg PO BID 10/23/24 11/12/24 History hydrocodone 5 mg-acetaminophen 325 1 tab PO Q6H PRN Pain 10/23/24 11/12/24 History mg tablet iron 18 mg tablet 18 mg PO Q OTHER DAY 10/23/24 11/12/24 History morphine 15 mg tablet,extended 15 mg PO Q12H 10/23/24 11/12/24 History release potassium chloride 20 mEq 20 meq PO DAILY 10/23/24 11/12/24 History tablet,extended release sennosides 8.6 mg capsule (senna) 8.6 mg PO DAILY 10/23/24 11/12/24 History tamoxifen 20 mg tablet 20 mg PO QDAY 10/23/24 11/12/24 History tizanidine 2 mg capsule 2 mg PO HS PRN MUSCLE SPASMS/PAIN 10/23/24 11/12/24 History food supplemt, lactose-reduced 1 ea PO BID 11/12/24 11/12/24 History glipizide 5 mg tablet, extended 5 mg PO DAILY 11/12/24 11/12/24 History release 24 hr torsemide 20 mg tablet 40 mg PO DAILY 11/12/24 11/12/24 History Allergies Allergy/AdvReac Type Severity Reaction Status Date / Time tramadol Allergy Intermediate Rash Verified 11/12/24 22:30 RENE Inhibitors AdvReac Intermediate Cough Verified 11/12/24 22:30 atorvastatin AdvReac Intermediate Cough Verified 11/12/24 22:30 naproxen AdvReac Intermediate Gastrointestinal Verified 11/12/24 22:30 Upset Past Med/Surg History Problem List (Updated 11/12/24 @ 23:28 by Giselle Talley PA-C) Sepsis (Acute) Acute UTI (Acute) Bilateral sacroiliitis Malignant neoplasm of upper-inner quadrant of left breast in female, estrogen receptor positive (09/29/21) Cancer LEFT BREAST-CURRENT Encounter for pre-operative examination HTN (hypertension) (Chronic) Peripheral arterial disease Dyslipidemia (Chronic) Medical History Asthma HX-NO INHALERS Acute blood loss anemia DVT prophylaxis Chronic systolic heart failure Interstitial lung disease Melena CHF (congestive heart failure) Atrial fibrillation CKD (chronic kidney disease), stage III Coronary artery disease Acute GI bleeding HX Severe anemia Peripheral arterial disease Surgical wound, non healing Stage II pressure ulcer Stage II pressure ulcer of right heel Unspecified abnormalities of gait and mobility Umbilical hernia with obstruction, without gangrene Rosacea, unspecified Inflamed seborrheic keratosis Neoplasm of uncertain behavior of skin Other allergic rhinitis Asymptomatic menopausal state Plantar fascial fibromatosis Retinal edema Vitamin D insufficiency Interstitial pulmonary disease Ventricular fibrillation History of hypertension Diabetes mellitus, type II Unstable angina pectoris F/U DR DANIEL GONZALEZ Surgical History History of eye surgery FOR BROKEN BLOOD VESSEL History of colonoscopy MULTIPLE History of cardiac cath 12/2018-NO STENTS H/O cataract extraction R/L 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 [facility] [place] History Father Coronary heart disease Social History Smoking Status: Never smoker Second Hand Exposure: No; Do You Dip or Chew Tobacco: No; Hx Alcohol Use: No Hx Substance Use: No Preferred Language: Lithuanian Communication Ability: Effective Hearing Ability: Normal Glass Tube Bender Required: No Beliefs That Will Affect Care: None marital status: Current Living Situation: Spouse current occupational status: retired How many Children do You have: 2 Feels Safe at Home: Yes during the past year weight has: remained stable Physical Activity Frequency Comment: walks dog several times daily Assistive Devices: Glasses Review of Systems A total of 10 systems reviewed and were otherwise negative Physical Exam Vital Signs Vital Signs - 24 hr 11/12/24 20:02 11/12/24 21:38 11/12/24 21:39 Temperature 37.0 C 38.3 C H Temperature Source Temporal Artery Scan Oral Pulse Rate 77 85 Respiratory Rate 18 Respiratory Effort / Characteristics Non-Labored Spontaneous Respiratory Depth Normal Blood Pressure 135/59 L Blood Pressure Mean 84 Pulse Oximetry 100 Oxygen Delivery Method Room Air Sepsis Recent Fever Within 48 Hours No Sepsis New/Unexplained Change in Mental Status No Sepsis Action Taken by Nursing No Action Required 11/12/24 21:44 11/12/24 22:01 11/12/24 23:23 Temperature 37.4 C Temperature Source Oral Pulse Rate 83 78 Respiratory Rate 21 22 Respiratory Effort / Characteristics Respiratory Depth Blood Pressure 124/71 122/57 L Blood Pressure Mean 100 75 Pulse Oximetry 98 100 Oxygen Delivery Method Room Air Room Air Sepsis Recent Fever Within 48 Hours Sepsis New/Unexplained Change in Mental Status Sepsis Action Taken by Nursing VITALS: Vitals are noted on the nurse's note and reviewed by myself. Vital signs febrile. GENERAL: Pleasant female with present, in no acute distress, nondiaphoretic, well-developed well-nourished. SKIN: The skin was without rashes, erythema, edema, or bruising. There is no tenting of the skin. Capillary reflex less than 2 seconds. HEAD: Normocephalic atraumatic. EARS: External auditory canals clear EYES: Pupils equal round and reactive to light and accommodation. Conjunctivae without injection, sclerae without icterus. Extraocular movements intact. NOSE: Patent, no discharge. MOUTH: Mucous membranes moist. Pharynx without erythema or exudate. Uvula midline. Airway patent. Tongue does not deviate. NECK: Supple without nuchal rigidity. No lymphadenopathy. No thyromegaly. Cervical spine is nontender. No JVD. HEART: Regular rate and rhythm LUNGS: Clear to auscultation bilaterally without wheezes, rales or rhonchi. No retractions or accessory muscle use. ABDOMEN: Positive bowel sounds x 4. Normal tympanic percussion. Soft, tender to palpation lower abdomen, without masses or organomegaly. Nye sign negative. No guarding or rebound tenderness. No CVA tenderness MUSCULOSKELETAL: No muscle atrophy, erythema, or edema noted. NEURO: Patient was alert and oriented to person place and time. Normal sensation to light and sharp touch. No focal neurological deficits. Course Administered Medications Discontinued Medications Ceftriaxone Sodium (Rocephin) 1,000 mg in 50 mls @ 100 mls/hr IV NOW STA Stop: 11/12/24 21:56 Last Infusion: 11/12/24 23:31 Dose: Infused Documented By: Admin: 11/12/24 22:52 Dose: 100 mls/hr Documented By: RAMIRO Sodium Chloride (Nss) 500 mls @ 999 mls/hr IV .Q31M ONE Stop: 11/12/24 21:57 Last Infusion: 11/12/24 23:31 Dose: Infused Documented By: Admin: 11/12/24 21:41 Dose: 999 mls/hr Documented By: RAMIRO Acetaminophen (Ofirmev) 1,000 mg in 100 mls @ 400 mls/hr IV NOW STA Stop: 11/12/24 21:50 Last Infusion: 11/12/24 22:52 Dose: Infused Documented By: Admin: 11/12/24 21:46 Dose: 400 mls/hr Documented By: RAMIRO Sodium Chloride (Nss) 1,000 mls @ 999 mls/hr IV .Q1H1M ONE Stop: 11/12/24 22:36 Last Admin: 11/12/24 21:42 Dose: 999 mls/hr Documented By: KMS Ioversol (Optiray 320 100ml) 93 ml IV ONCE ONE Stop: 11/12/24 22:43 Last Admin: 11/12/24 22:42 Dose: 93 ml Documented By: [place] Medical Decision Making Medical Records Attestation: I reviewed the patient's medical records. Home Medications Current Medication List: was personally reviewed by me Laboratory Data Attestation: I reviewed the patient's lab results. 11/12/24 20:25 11/12/24 20:25 Lab Results 11/12/24 11/12/24 11/12/24 Range/Units 20:22 20:25 21:52 WBC 13.67 H (4.8-10.8) K/ul RBC 3.71 L (4.20-5.40) M/uL Hgb 11.8 L (12.0-16.0) g/dl Hct 35.4 L (37.0-47.0) % MCV 95.4 (80.0-100.0) fL MCH 31.8 (25.0-34.0) pg MCHC 33.3 (32.0-36.0) g/dL RDW Std Deviation 43.7 (36.4-46.3) fL RDW Coeff of Barbara 12.5 (11.5-14.5) % Plt Count 382 (130-400) K/uL MPV 10.6 (9.4-12.4) fL Immature Gran % (Auto) 0.4 % Neut % (Auto) 80.3 % Lymph % (Auto) 11.6 % Callahan % (Auto) 6.5 % Eos % (Auto) 0.7 % Baso % (Auto) 0.5 % Neut # (Auto) 10.97 H (1.40-6.50) K/uL Lymph # (Auto) 1.59 (1.20-3.40) K/uL Callahan # (Auto) 0.89 H (0.11-0.59) K/uL Eos # (Auto) 0.09 (0.00-0.50) K/uL Baso # (Auto) 0.07 (0.00-0.20) K/uL Immature Gran # (Auto) 0.06 (0.01-0.20) K/uL Sodium 138 (136-145) mmol/L Potassium 3.7 (3.5-5.1) mmol/L Chloride 99 (98-107) mmol/L Carbon Dioxide 26 (21-32) mmol/L Anion Gap 13 H (3-11) BUN 21 (6-23) mg/dl Creatinine 1.69 H (0.6-1.2) mg/dl Est Cr Clr Drug Dosing 20.3 ml/min eGFR 30.15 BUN/Creatinine Ratio 12.4 (10-20) Glucose 227 H (70-99(Fasting)) mg/dl Lactate 3.4 H* (0.4-2.0) mmol/L Calcium 9.7 (8.6-10.3) mg/dl Total Bilirubin 1.5 H (0.2-1.0) mg/dl AST 26 (13-39) U/L ALT 20 (7-52) U/L Alkaline Phosphatase 71 (34-104) U/L Total Protein 6.9 (6.0-8.3) gm/dl Albumin 3.9 (3.4-5.0) gm/dl Globulin 3.0 (2.5-4.0) gm/dl Albumin/Globulin Ratio 1.3 (0.9-2) Lipase 80 (11-82) U/L Procalcitonin 0.16 (0-0.5) ng/ml Urine Color Corin Urine Appearance Turbid A (Clear) Urine pH 6.0 (4.5-7.5) Ur Specific Wilmore 1.025 (1.000-1.030) Urine Protein 3+ H (Negative) Urine Glucose (UA) Negative (Negative) Urine Ketones Trace H (Negative) Urine Blood 3+ H (Negative) Urine Nitrite Negative (Negative) Urine Bilirubin Negative (Negative) Urine Urobilinogen Negative (Negative) Ur Leukocyte Esterase 3+ H (Negative) Urine WBC (Auto) >50 H (0-5) /hpf Urine RBC (Auto) 11-20 H (0-2) /hpf U Hyaline Cast (Auto) 6-10 H (0-2) /lpf U Epithel Cells (Auto) 6-10 H (0-2) /hpf Urine Bacteria (Auto) 4+ H (None Seen) Urine Comment Imaging Data Attestation: I personally reviewed and interpreted this imaging study as follows: Radiologist's Impression: Abdomen/Pelvis CT 11/12/24 21:27 Exam(s): CT ABDOMEN + PELVIS With Contrast IV Amt: 93 cc opti 320 EXAM: CT Abdomen and Pelvis With Intravenous Contrast CLINICAL HISTORY: Reason for exam: lower abd pain, uti, ? pyelo/abscess. TECHNIQUE: Axial computed tomography images of the abdomen and pelvis with intravenous contrast. CTDI is 10.55 mGy and DLP is 477.64 mGy-cm. Automated exposure control was utilized for the study. A dose lowering technique was utilized adhering to the principles of ALARA. CONTRAST: Patient received 93 cc opti 320 of IV contrast COMPARISON: No relevant prior studies available. FINDINGS: Lung bases: No consolidation. ABDOMEN: Liver: No mass. Gallbladder and bile ducts: Gallbladder contains calculi.. No ductal dilation. Pancreas: No mass. No ductal dilation. Spleen: No splenomegaly. Adrenals: No mass. Kidneys and ureters: No solid mass. No hydronephrosis. Stomach and bowel: There is a small hiatal hernia. Stomach is decompressed. The colon is distended containing a moderate to large amount of stool. There appear to be diverticula present on the terminal ileum. No inflammatory changes are seen. PELVIS: Appendix: No findings to suggest acute appendicitis. Bladder: No calculi are noted within the bladder.. Reproductive: There may be fluid within the endometrial canal or there may be thickening of the endometrium. ABDOMEN and PELVIS: Intraperitoneal space: No free air. No significant fluid collection. Bones/joints: There are marked hypertrophic degenerative changes in the spine. There is a compression fracture at the T12 vertebral body. Soft tissues: There is an umbilical hernia containing fat.. Vasculature: There are atherosclerotic changes. No abdominal aortic aneurysm. Lymph nodes: No enlarged lymph nodes. IMPRESSION: Cholelithiasis. There is a small hiatal hernia. There may be fluid within the endometrial canal or there may be thickening of the endometrium. This should be further evaluated with use of a nonemergent pelvic ultrasound. There is a compression fracture at the T12 vertebral body. This is of undetermined age. See discussion above Electronically signed by: Alfonso Aguilar MD 11/12/24 23:16 PM MDM Narrative Prior records/ancillary studies reviewed. Triage Nursing notes reviewed. Additional history obtained from family. The patient's history was concerning for abdominal pain. Differential diagnosis: Etiologies such as appendicitis, diverticulitis, PUD, biliary pathology, UTI, pancreatitis, obstruction, mesenteric ischemia, aortic pathology, infections, inflammatory bowel disease, renal colic, as well as others were entertained. Physical examination findings: As above. ER treatment provided: An order was placed for continuous cardiac monitoring. The monitor shows a rate of 60-100 with a sinus rhythm per my Independent interpretation. Rocephin was ordered for UTI, IV fluids were given per septic protocol On reassessment the patient felt better. Diagnostics interpreted by me: ECG: Ordered for weakness EKG: Normal sinus, Q waves in inferior leads, no acute ST-T wave changes, rate of 62. Impression normal sinus rhythm Q waves inferior leads independently interpreted by myself The labs Independently Interpreted by myself revealed leukocytosis, urine concerning for infection sent for culture. No prior culture for review Imaging studies: Imaging was reviewed and read by radiology Consultation: A consultation was placed with the hospitalist. The case was discussed and diagnostics were reviewed. The patient was evaluated in the ER for further treatment. Exam and history seem consistent with UTI with concerns for sepsis. Patient was febrile, tachycardic and elevated lactic. She was given Rocephin. IV fluids were ordered per septic protocol. She was reassessed multiple times and improved. Medicine was consulted case discussed. She will be evaluated for admission. By the evaluation outlined above emergent etiologies such as appendicitis, diverticulitis, PUD, biliary pathology, pancreatitis, obstruction, mesenteric ischemia, aortic pathology, inflammatory bowel disease, renal colic, as well as others were deemed relatively unlikely. The pt informed about the findings as listed above. All questions were answered and pleased with the treatment. The chart was completed utilizing [employer] Speech voice recognition software. Grammatical errors, random word insertions, pronoun errors, and incomplete sentences are an occassional consequence of this system due to software limitations, ambient noise, and hardware issues. Any formal questions or concerns about the content, text, or information contained within the body of this dictation should be directly addressed to the physician blood bank assistant for clarification. Impression & Plan Acute UTI, Sepsis Discharge Plan Visit Data Chief Complaint: GI Assessment Stated Complaint: BOWEL PROBLEMS, DEHYDRATION, TREMBLING ED Provider: Alycia Murphy ED Midlevel Provider: Giselle Talley Discharge Problem: Acute UTI, Sepsis Patient Disposition: Admitted As Inpatient Condition: Good Forms Stand Alone Forms: Axial Prescriptions Prescriptions: No Action cetirizine [Zyrtec] 10 mg tablet 10 mg PO DAILY PRN (Reason: Congestion) cholecalciferol (vitamin D3) [Vitamin D3] 25 mcg (1,000 unit) capsule 25 mcg PO DAILY rosuvastatin 40 mg tablet 40 mg PO DAILY pantoprazole 40 mg tablet,delayed release (DR/EC) 40 mg PO DAILY iron 18 mg tablet 18 mg PO Q OTHER DAY docusate sodium 100 mg capsule 100 mg PO BID gabapentin 100 mg capsule 100 mg PO BID morphine 15 mg tablet extended release 15 mg PO Q12H potassium chloride 20 mEq tablet extended release 20 meq PO DAILY senna 8.6 mg capsule 8.6 mg PO DAILY hydrocodone-acetaminophen 5-325 mg tablet 1 tab PO Q6H PRN (Reason: Pain) tamoxifen 20 mg tablet 20 mg PO QDAY bupropion HCl 150 mg tablet extended release 24 hr 150 mg PO QAM tizanidine 2 mg capsule 2 mg PO HS PRN (Reason: MUSCLE SPASMS/PAIN) aspirin 81 mg tablet,chewable 81 mg PO QAM ascorbic acid (vitamin C) 250 mg tablet 250 mg PO QPM digoxin 125 mcg (0.125 mg) tablet 125 mcg PO 3XWK Rx Instructions: MON, WED, & FRI MORNINGS metoprolol succinate 25 mg tablet extended release 24 hr 25 mg PO QAM torsemide 20 mg Tablet 40 mg PO DAILY Rx Instructions: MAY TAKE ADDITIONAL 20 MG IF NEEDED FOR SWELLING. glipizide 5 mg Tablet Extended Release 24hr 5 mg PO DAILY Boost High Protein Liquid 1 ea PO BID Referrals Referrals: Jacek Baltazar DO [Primary Care Provider] -
--- NOTE | 2024-11-13 00:03 | XRay Report ---
Exam(s): XR CXR 1 VIEW EXAM: XR Chest, 1 View CLINICAL HISTORY: Reason for exam: arf. TECHNIQUE: Frontal view of the chest. COMPARISON: 03/23/2019 FINDINGS: Lungs: There is increased opacity at the left lung base. Again noted is elevation of right hemidiaphragm.. Pleural space: No pleural effusion is seen. No pneumothorax. Heart: Patient is status post midline sternotomy. The heart is normal in size.. Mediastinum: There is uncoiling of thoracic aorta.. Bones/joints: There are degenerative changes in the spine.. IMPRESSION: There is some scarring or and/or atelectasis at the left lung base.. Electronically signed by: Alfonso Aguilar MD 11/13/24 00:02 AM
[2024-11-13] MEDS: PIPERACILLIN/TAZOBACTAM 4.5 GM/100 ML BAG IV STA (00:40)
--- NOTE | 2024-11-13 00:52 | History & Physical Report ---
Date of Service November 13, 2024 Assessment & Plan (1) Sepsis: Plan: Assessment and plan below following discussion of case with ED provider and reviewing patient history/pertinent normal/abnormal diagnostic test results. Severe sepsis SIRS plus lactic acidosis Possible sources Complicated UTI Diarrheal illness rule out C. difficile New onset anemia secondary to transient LGIB chronic systolic heart failure, patient on the dry side hx CAD status post CABG/PAD PAF off anticoagulation secondary to significant anemia as per outpatient cardiology note, patient currently NSR hypertension, BP stable hyperlipidemia/statin intolerance DM2 on oral medications, reasonable control as of recent hemoglobin A1c of 7.06 May 2024 CRI, creatinine close to baseline left breast cancer status post surgery/radiation on tamoxifen, in remission chronic pain on narcotics Admit to med/tele CS, Zosyn Stool C. difficile Monitor lactic acid response to cautious IV hydration Appropriate hold aspirin for now given recent GI bleed until H&H stable Follow H&H, transfuse PRBC to maintain hemoglobin of at least 8 given vascular disease history (Patient currently refusing to sign consent form for prospective blood transfusion.) Hold home diuretic until patient euvolemic BSG checks before every meal and at bedtime Continue patient home glipizide as per request (Patient currently refusing insulin coverage in the hospital despite being counseled on importance of good blood sugar control during confinement particularly for sepsis.) DVT prophylaxis. SCDs re: transient LGI bleed causing anemia Full code Text document was generated using [employer] voice recognition software. It may contain grammatical or spelling errors. Kindly contact undersigned for clarification of any documentation item in question. History of Present Illness Chief Complaint: Diarrhea Primary Care Provider: Jacek Baltazar DO History obtained from patient and records. Medical history significant for chronic systolic heart failure (EF 40-44%, TTE 2022), CAD status post CABG, PAF off anticoagulation secondary to significant anemia as per records, valvular heart disease (mild TR/MR), PAD, hypertension, hyperlipidemia, DM2 on oral medications, CRI (baseline creatinine 1.6), left breast cancer status post surgery/radiation on tamoxifen, bilateral sacroiliitis, chronic pain on narcotics. Last confinement 2020 for GI bleed. Endoscopy deferred during confinement. Patient noted diarrhea symptoms the last few days. Blood noted in stool for 1 day 2 days ago. No abdominal pain. Some nausea symptoms. Not sure about sick contacts. No recent antibiotic Rx or out-of-town travel. Increased urinary frequency yesterday. Fever chills at home. Patient felt flushed. IV ceftriaxone administered at the ER. Medical History as above 2020 colonoscopy showed polyps and internal hemorrhoids 2022 EGD showed sliding hiatal hernia Surgical History : CABG, breast biopsy/partial mastectomy, laser trabeculoplasty, vascular procedures, cataract surgeries Family History : Heart disease Personal/Social history : Non-smoker, no EtOH intake, retired from clerical work Allergies Allergy/AdvReac Type Severity Reaction Status Date / Time tramadol Allergy Intermediate Rash Verified 11/12/24 22:30 RENE Inhibitors AdvReac Intermediate Cough Verified 11/12/24 22:30 atorvastatin AdvReac Intermediate Cough Verified 11/12/24 22:30 naproxen AdvReac Intermediate Gastrointestinal Verified 11/12/24 22:30 Upset Home Medications Medication Instructions Recorded Confirmed Type aspirin 81 mg chewable tablet 81 mg PO QAM 02/16/19 11/12/24 History ascorbic acid (vitamin C) 250 mg 250 mg PO QPM 05/01/20 11/12/24 History tablet digoxin 125 mcg (0.125 mg) tablet 125 mcg PO 3XWK 05/01/20 11/12/24 History metoprolol succinate 25 mg 25 mg PO QAM 10/02/20 11/12/24 History tablet,extended release 24 hr cetirizine 10 mg tablet (Zyrtec) 10 mg PO DAILY PRN Congestion 12/03/21 11/12/24 History cholecalciferol (vitamin D3) 25 25 mcg PO DAILY 12/03/21 11/12/24 History mcg (1,000 unit) capsule (Vitamin D3) rosuvastatin 40 mg tablet 40 mg PO DAILY 12/03/21 11/12/24 History pantoprazole 40 mg tablet,delayed 40 mg PO DAILY 12/21/21 11/12/24 History release bupropion HCl 150 mg 24 hr tablet, 150 mg PO QAM 10/23/24 11/12/24 History extended release docusate sodium 100 mg capsule 100 mg PO BID 10/23/24 11/12/24 History gabapentin 100 mg capsule 100 mg PO BID 10/23/24 11/12/24 History hydrocodone 5 mg-acetaminophen 325 1 tab PO Q6H PRN Pain 10/23/24 11/12/24 History mg tablet iron 18 mg tablet 18 mg PO Q OTHER DAY 10/23/24 11/12/24 History morphine 15 mg tablet,extended 15 mg PO Q12H 10/23/24 11/12/24 History release potassium chloride 20 mEq 20 meq PO DAILY 10/23/24 11/12/24 History tablet,extended release sennosides 8.6 mg capsule (senna) 8.6 mg PO DAILY 10/23/24 11/12/24 History tamoxifen 20 mg tablet 20 mg PO QDAY 10/23/24 11/12/24 History tizanidine 2 mg capsule 2 mg PO HS PRN MUSCLE SPASMS/PAIN 10/23/24 11/12/24 History food supplemt, lactose-reduced 1 ea PO BID 11/12/24 11/12/24 History glipizide 5 mg tablet, extended 5 mg PO DAILY 11/12/24 11/12/24 History release 24 hr torsemide 20 mg tablet 40 mg PO DAILY 11/12/24 11/12/24 History Past Med/Surg History Problem List (Updated 11/13/24 @ 01:25 by Mira Solis) Sepsis (Acute) Acute UTI (Acute) Bilateral sacroiliitis Malignant neoplasm of upper-inner quadrant of left breast in female, estrogen receptor positive (09/29/21) Cancer LEFT BREAST-CURRENT Encounter for pre-operative examination HTN (hypertension) (Chronic) Peripheral arterial disease Dyslipidemia (Chronic) Medical History Asthma HX-NO INHALERS Acute blood loss anemia DVT prophylaxis Chronic systolic heart failure Interstitial lung disease Melena CHF (congestive heart failure) Atrial fibrillation CKD (chronic kidney disease), stage III Coronary artery disease Acute GI bleeding HX Severe anemia Peripheral arterial disease Surgical wound, non healing Stage II pressure ulcer Stage II pressure ulcer of right heel Unspecified abnormalities of gait and mobility Umbilical hernia with obstruction, without gangrene Rosacea, unspecified Inflamed seborrheic keratosis Neoplasm of uncertain behavior of skin Other allergic rhinitis Asymptomatic menopausal state Plantar fascial fibromatosis Retinal edema Vitamin D insufficiency Interstitial pulmonary disease Ventricular fibrillation History of hypertension Diabetes mellitus, type II Unstable angina pectoris F/U DR DANIEL GONZALEZ Surgical History History of eye surgery FOR BROKEN BLOOD VESSEL History of colonoscopy MULTIPLE History of cardiac cath 12/2018-NO STENTS H/O cataract extraction R/L 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 [facility] [place] Family History Father Coronary heart disease Social History Smoking Status: Never smoker Second Hand Exposure: No; Do You Dip or Chew Tobacco: No; Tobacco Cessation Education Requested by Patient: No Hx Alcohol Use: No Hx Substance Use: No Preferred Language: Icelandic Communication Ability: Effective Hearing Ability: Normal [employer]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 Electronics Required: No Beliefs That Will Affect Care: None marital status: Current Living Situation: Spouse current occupational status: retired How many Children do You have: 2 Other Information That Helps Us Care for You: No Feels Safe at Home: Yes Safety Concerns: Feels Safe At This Time during the past year weight has: remained stable Physical Activity Frequency Comment: walks dog several times daily Assistive Devices: Cane and Glasses Review of Systems Review of Systems: As per HPI, all other systems reviewed and negative Physical Exam Physical Exam: GENERAL: Comfortable, slightly anxious, no respiratory distress SKIN: Pallor, warm HEENT: Sparse hair, flushed cheeks, pale palpebral conjunctivae, no ptosis, dry buccal mucosa NECK : Supple, no tenderness CHEST : CTA, no tenderness HEART : RRR, no obvious murmurs ABDOMEN: Some distention, nontender EXTREMITIES : Minimal LE swelling, no LE tenderness, palpable pulses, no other conspicuous deformities noted NEUROLOGIC : Coherent, no facial asymmetry, no other gross focality Results & Data Results & Data Vital Signs (Past 12 Hours) Vital Signs Temp Pulse Resp BP Pulse Ox O2 Del Method 11/12/24 23:23 37.4 C 11/12/24 22:01 78 22 122/57 L 100 Room Air 11/12/24 21:44 83 21 124/71 98 Room Air 11/12/24 21:39 85 11/12/24 21:38 38.3 C H 11/12/24 20:02 37.0 C 77 18 135/59 L 100 Room Air Laboratory Results Laboratory Results WBC 13.67 K/ul (4.8-10.8) H 11/12/24 20:25 RBC 3.71 M/uL (4.20-5.40) L 11/12/24 20: Hgb 11.8 g/dl (12.0-16.0) L 11/12/24: Hct 35.4 % (37.0-47.0) L 11/12/24: MCV 95.4 fL (80.0-100.0) 11/12/24: MCH 31.8 pg (25.0-34.0) 11/12/24: MCHC 33.3 g/dL (32.0-36.0) 11/12/24: RDW Std Deviation 43.7 fL (36.4-46.3) 11/12/24: RDW Coeff of Barbara 12.5 % (11.5-14.5) 11/12/24 Plt Count 382 K/uL (130-400) 11/12/24: MPV 10.6 fL (9.4-12.4) 11/12/24 20: Immature Gran % (Auto) 0.4 % 11/12/24: Neut % (Auto) 80.3 % 11/12/24 20: Lymph % (Auto) 11.6 % 11/12/24 20: [place] % (Auto) 6.5 % 11/12/24: Eos % (Auto) 0.7 % 11/12/24: Baso % (Auto) 0.5 % 11/12/24: Neut # (Auto) 10.97 K/uL (1.40-6.50) H 11/12/24 20: Lymph # (Auto) 1.59 K/uL (1.20-3.40) 11/12/24: [place] # (Auto) 0.89 K/uL (0.11-0.59) H 11/12/24: Eos # (Auto) 0.09 K/uL (0.00-0.50) 11/12/24: Baso # (Auto) 0.07 K/uL (0.00-0.20) 11/12/24: Immature Gran # (Auto) 0.06 K/uL (0.01-0.20) 09/08/25 20:25 Sodium 138 mmol/L (136-145) 11/12/24 20:25 Potassium 3.7 mmol/L (3.5-5.1) 11/12/24 20:25 Chloride 99 mmol/L (98-107) 11/12/24 20:25 Carbon Dioxide 26 mmol/L (21-32) 11/12/24 20:25 Anion Gap 13 (3-11) H 11/12/24 20:25 BUN 21 mg/dl (6-23) 11/12/24 20:25 Creatinine 1.69 mg/dl (0.6-1.2) H 11/12/24 20:25 Est Cr Clr Drug Dosing 20.3 ml/min 11/12/24 20:25 eGFR 30.15 11/12/24 20:25 BUN/Creatinine Ratio 12.4 (10-20) 11/12/24 20:25 Glucose 227 mg/dl (70-99(Fasting)) H 11/12/24 20:25 Lactate 3.4 mmol/L (0.4-2.0) H* 11/12/24 21:52 Calcium 9.7 mg/dl (8.6-10.3) 11/12/24 20:25 Total Bilirubin 1.5 mg/dl (0.2-1.0) H 11/12/24 20:25 AST 26 U/L (13-39) 11/12/24 20:25 ALT 20 U/L (7-52) 11/12/24 20:25 Alkaline Phosphatase 71 U/L (34-104) 11/12/24 20:25 Total Protein 6.9 gm/dl (6.0-8.3) 11/12/24 20:25 Albumin 3.9 gm/dl (3.4-5.0) 11/12/24 20:25 Globulin 3.0 gm/dl (2.5-4.0) 11/12/24 20:25 Albumin/Globulin Ratio 1.3 (0.9-2) 11/12/24 20:25 Lipase 80 U/L (11-82) 11/12/24 20:25 Procalcitonin 0.16 ng/ml (0-0.5) 11/12/24 20:22 Urine Color Corin 11/12/24 20:25 Urine Appearance Turbid (Clear) A 11/12/24 20:25 Urine pH 6.0 (4.5-7.5) 11/12/24 20:25 Ur Specific [place] 1.025 (1.000-1.030) 11/12/24 20:25 Urine Protein 3+ (Negative) H 11/12/24 20:25 Urine Glucose (UA) Negative (Negative) 11/12/24 20:25 Urine Ketones Trace (Negative) H 11/12/24 20:25 Urine Blood 3+ (Negative) H 11/12/24 20:25 Urine Nitrite Negative (Negative) 11/12/24 20:25 Urine Bilirubin Negative (Negative) 11/12/24 20:25 Urine Urobilinogen Negative (Negative) 11/12/24 20:25 Ur Leukocyte Esterase 3+ (Negative) H 11/12/24 20:25 Urine WBC (Auto) >50 /hpf (0-5) H 11/12/24 20:25 Urine RBC (Auto) 11-20 /hpf (0-2) H 11/12/24 20:25 U Hyaline Cast (Auto) 6-10 /lpf (0-2) H 11/12/24 20:25 U Epithel Cells (Auto) 6-10 /hpf (0-2) H 11/12/24 20:25 Urine Bacteria (Auto) 4+ (None Seen) H 11/12/24 20:25 Urine Comment 11/12/24 20:25 Impressions Abdomen/Pelvis CT 11/12/24 21:27 Exam(s): CT ABDOMEN + PELVIS With Contrast IV Amt: 93 cc opti 320 EXAM: CT Abdomen and Pelvis With Intravenous Contrast CLINICAL HISTORY: Reason for exam: lower abd pain, uti, ? pyelo/abscess. TECHNIQUE: Axial computed tomography images of the abdomen and pelvis with intravenous contrast. CTDI is 10.55 mGy and DLP is 477.64 mGy-cm. Automated exposure control was utilized for the study. A dose lowering technique was utilized adhering to the principles of ALARA. CONTRAST: Patient received 93 cc opti 320 of IV contrast COMPARISON: No relevant prior studies available. FINDINGS: Lung bases: No consolidation. ABDOMEN: Liver: No mass. Gallbladder and bile ducts: Gallbladder contains calculi.. No ductal dilation. Pancreas: No mass. No ductal dilation. Spleen: No splenomegaly. Adrenals: No mass. Kidneys and ureters: No solid mass. No hydronephrosis. Stomach and bowel: There is a small hiatal hernia. Stomach is decompressed. The colon is distended containing a moderate to large amount of stool. There appear to be diverticula present on the terminal ileum. No inflammatory changes are seen. PELVIS: Appendix: No findings to suggest acute appendicitis. Bladder: No calculi are noted within the bladder.. Reproductive: There may be fluid within the endometrial canal or there may be thickening of the endometrium. ABDOMEN and PELVIS: Intraperitoneal space: No free air. No significant fluid collection. Bones/joints: There are marked hypertrophic degenerative changes in the spine. There is a compression fracture at the T12 vertebral body. Soft tissues: There is an umbilical hernia containing fat.. Vasculature: There are atherosclerotic changes. No abdominal aortic aneurysm. Lymph nodes: No enlarged lymph nodes. IMPRESSION: Cholelithiasis. There is a small hiatal hernia. There may be fluid within the endometrial canal or there may be thickening of the endometrium. This should be further evaluated with use of a nonemergent pelvic ultrasound. There is a compression fracture at the T12 vertebral body. This is of undetermined age. See discussion above Electronically signed by: Alfonso Aguilar MD 11/12/24 23:16 PM Chest X-Ray 11/12/24 23:30 Exam(s): XR CXR 1 VIEW EXAM: XR Chest, 1 View CLINICAL HISTORY: Reason for exam: arf. TECHNIQUE: Frontal view of the chest. COMPARISON: 03/23/2019 FINDINGS: Lungs: There is increased opacity at the left lung base. Again noted is elevation of right hemidiaphragm.. Pleural space: No pleural effusion is seen. No pneumothorax. Heart: Patient is status post midline sternotomy. The heart is normal in size.. Mediastinum: There is uncoiling of thoracic aorta.. Bones/joints: There are degenerative changes in the spine.. IMPRESSION: There is some scarring or and/or atelectasis at the left lung base.. Electronically signed by: Alfonso Aguilar MD 11/13/24 00:02 AM Diagnostic Findings EKG as per my interpretation :Rate 60, NSR, normal axis, anteroseptal infarct, inferior infarct, J-point elevation anteroseptal leads
--- NOTE | 2024-11-13 00:57 | Emergency Department Note ---
ED Visit Note I was consulted by the Advanced Practice Provider. I personally made/approved the management plan and take responsibility for the patient management. This includes the aspects of: -History/Physical -MDM
[2024-11-13] MEDS ORDERED: PROMETHAZINE 6.25 MG/50.25 ML BAG IV PRN (01:14)
[2024-11-13] MEDS ORDERED: GLUCAGON FOR INJ 1 MG VIAL SQ PRN (01:26)
[2024-11-13] MEDS ORDERED: GLUCOSE 40% GEL 15 GM TUBE PO PRN (01:26)
[2024-11-13] MEDS ORDERED: GLUCOSE 10 TAB/TUBE PO PRN (01:26)
[2024-11-13 01:33] LABS: Magnesium 2.2 mg/dl (1.7-2.4)
[2024-11-13] MEDS: INSULIN ASPART PER UNIT CHARGE SC SCH (02:10)
[2024-11-13] MEDS: LACTATED RINGER'S 1,000 ML IV ONE ×2 (02:15→22:08)
[2024-11-13 02:29] LABS: Cdiff Toxin B Gene (2yr or >) Negative Cdiff Gene (Neg)
[2024-11-13] MEDS: MoRPHine SULFATE CR 15 MG TABCR PO STA (02:32)
[2024-11-13 03:02] LABS: Adenovirus F 40/41 PCR Not Detected (NotDetected); Campylobacter PCR Not Detected (NotDetected); Enteroaggregative E.coli(EAEC) Not Detected (NotDetected); Shiga-like Toxin E.coli (STEC) Not Detected (NotDetected); Vibrio species PCR Not Detected (NotDetected)
[2024-11-13 04:59] LABS: Hematocrit (blood only) 29.7 % (37.0-47.0); Hemoglobin 10.2 g/dl (12.0-16.0); Immature Granulocytes # (auto) 0.05 K/uL (0.01-0.20); Immature Granulocytes % (auto) 0.4 %; Mean Corpuscular Hemoglobin 33.3 pg (25.0-34.0); Mean Corpuscular Volume 97.1 fL (80.0-100.0); Platelet Count 313 K/uL (130-400); RDW Standard Deviation 44.5 fL (36.4-46.3); Red Blood Count 3.06 M/uL (4.20-5.40); White Blood Count 12.99 K/ul (4.8-10.8)
[2024-11-13 05:16] LABS: Anion Gap 5.0 (3-11); Blood Urea Nitrogen 18.0 mg/dl (6-23); Calcium 8.5 mg/dl (8.6-10.3); Carbon Dioxide 27.0 mmol/L (21-32); Chloride 105.0 mmol/L (98-107); Creatinine Clr Calc Pharmacy 22.2 ml/min; Glucose 158.0 mg/dl (70-99(Fasting)); Potassium 3.6 mmol/L (3.5-5.1); Sodium 137.0 mmol/L (136-145)
[2024-11-13] MEDS: PIPERACILLIN/TAZOBACTAM 4.5 GM/100 ML BAG IV SCH (06:03)
[2024-11-13 07:58] LABS: Hemoglobin A1C 5.6 % (4.5-5.6)
[2024-11-13] MEDS: glipiZIDE ER 2.5 MG TABCR PO SCH (08:15)
[2024-11-13] MEDS: MoRPHine SULFATE CR 15 MG TABCR PO SCH (08:16)
[2024-11-13] MEDS: GABAPENTIN 100 MG CAP PO SCH (08:16)
[2024-11-13] MEDS: ROSUVASTATIN CALCIUM 20 MG TAB PO SCH (08:16)
[2024-11-13] MEDS: METOPROLOL SUCC 25MG EXT REL TAB PO SCH (08:16)
[2024-11-13] MEDS: TAMOXIFEN CITRATE 10 MG TABLET PO SCH (08:17)
[2024-11-13] MEDS: LACTATED RINGER'S 1,000 ML IV SCH (09:29)
--- NOTE | 2024-11-13 09:56 | Electrocardiogram Report ---
Test Reason : Blood Pressure : */* mmHG Vent. Rate : 62 BPM Atrial Rate : 62 BPM P-R Int : 140 ms QRS Dur : 74 ms QT Int : 406 ms P-R-T Axes : -19 -12 -3 degrees QTcB Int : 412 ms Normal sinus rhythm Inferior infarct (cited on or before 23-Mar-2019) Anteroseptal infarct (cited on or before 23-Mar-2019) Abnormal ECG When compared with ECG of 02-Oct-2020 15:25, ST elevation now present in Anterior leads Nonspecific T wave abnormality now evident in Inferior leads Confirmed by Brad Castillo ([id number]) on 11/13/2024 9:56:14 AM Referred By: REFERRED SELF Confirmed By: Brad Castillo
[2024-11-13 10:25] LABS: Hematocrit (blood only) 33.6 % (37.0-47.0); Hemoglobin 10.9 g/dl (12.0-16.0)
--- NOTE | 2024-11-13 15:23 | Hospitalist Progress Note ---
Date of Service November 13, 2024 Assessment & Plan (1) Acute UTI: (2) Diarrhea: Plan 79F with PMH CHF EF 40%, CAD s/p CABG pAF not on AC due to anemia, PA, HTN HLD NIDDM CKD3, L breast CA on tamoxifen, chronic pain who presents with diarrhea #Diarrhea -Endorsed up to 8 loose bowel movements yesterday -Denies blood to author but endorsed blood to other physicians on admission -There was initially concern for lower GIB but no bloody stools this admission -CT AP without acute GI pathology -Hgb is stable and is above her baseline of 10 -Denies recent abx use -Given stool frequency, foul smell, concern for C. diff Plan -Check C. diff -She is on zosyn, deescalate to CTX and flagyl for GI and coverage -Follow Hgb. Should she have documented BRBPR or melena, consult GI -SCDs for DVT proph for now #UTI -UA dirty -She denies urinary symptoms to author but endorsed polyuria/urgency to admitting team -WBC elevated at 13.6, down to 12.9 this AM -Lactate was elevated on admission, concerning for sepsis -However she was not hypotensive or tachycardic -qSOFA 0 (no AMS, hypotension, or tachypnea) -Low suspicion for sepsis at this time -Urine already growing E. coli Plan -Deescalate to CTX. no history of PSA to require zosyn -Follow urine and blood cultures #KELLY on CKD3 -Baseline Cr 1.5 -Cr 1.7 on admission, likely pre renal from volume loss from diarrhea -Cr improved to baseline this AM with IVF -Continue IVF for today -Avoid nephrotoxic agents #CHronic HFrEF -Looks dry on exam -IVF for today -Watch volume status closely while on IVF -GDT as tolerated -Holding home diuretic for today, possibly resume tomorrow #pAF -Rate controlled -Not on AC due to anemia -Continue toprol and digoxin for RC -Watch renal function while on dig #HTN -Stable, continue home meds #HLD-not on statin #NIDDM -SSI #L breast CA -Not on chemo or radiation Continue tamoxifen I spent a total of 40 minutes coordinating, documenting, and providing care for this patient excluding time spent in the performance of separately billed services. This included personally reviewing all current laboratories and imaging studies, medical reconciliation, outpatient chart review and discussion with specialists Admission and Anticipated Discharge Date Admission Date: November 13, 2024 Subjective Patient seen in ED B pod this morning. she is feeling better. her only complaint is diarrhea. she denied blood to author. she denies urinary symptoms. no other complaints. Physical Exam Physical Exam: Vitals and labs reviewed General: Well appearing, NAD HEENT: EOMI, PERRLA Neck: Supple Cardiac: RRR no rubs gallops or murmurs Lungs: CTA no rhonchi wheezing or rales Abd: S NT ND BS positive : Deffered MSK: Full ROM. No obvious deformities Ext: No Edema cyanosis Skin: Warm, Dry Neuro: AOx3 No focal deficits. Psych: Normal Mood Results & Data Results & Data Vital Signs (Past 12 Hours) Vital Signs Temp Pulse Pulse Resp BP Pulse Ox O2 Del Method 11/13/24 14:18 60 11/13/24 07:05 67 11/13/24 06:07 36.9 C 74 16 133/67 100 Room Air Laboratory Results Abnormal lab results 11/12/24 11/12/24 11/13/24 Range/Units 20:25 21:52 01:33 WBC 13.67 H (4.8-10.8) K/ul RBC 3.71 L (4.20-5.40) M/uL Hgb 11.8 L (12.0-16.0) g/dl Hct 35.4 L (37.0-47.0) % Neut # (Auto) 10.97 H (1.40-6.50) K/uL [place] # (Auto) 0.89 H (0.11-0.59) K/uL Anion Gap 13 H (3-11) Creatinine 1.69 H (0.6-1.2) mg/dl Glucose 227 H (70-99(Fasting)) mg/dl POC Glucose (70-99) mg/dl Lactate 3.4 H* 3.0 H* (0.4-2.0) mmol/L Calcium (8.6-10.3) mg/dl Total Bilirubin 1.5 H (0.2-1.0) mg/dl Urine Appearance Turbid A (Clear) Urine Protein 3+ H (Negative) Urine Ketones Trace H (Negative) Urine Blood 3+ H (Negative) Ur Leukocyte Esterase 3+ H (Negative) Urine WBC (Auto) >50 H (0-5) /hpf Urine RBC (Auto) 11-20 H (0-2) /hpf U Hyaline Cast (Auto) 6-10 H (0-2) /lpf U Epithel Cells (Auto) 6-10 H (0-2) /hpf Urine Bacteria (Auto) 4+ H (None Seen) Digoxin 0.7 L (0.8-2.0) ng/ml 11/13/24 11/13/24 11/13/24 Range/Units 04:37 10:12 11:35 WBC 12.99 H (4.8-10.8) K/ul RBC 3.06 L (4.20-5.40) M/uL Hgb 10.2 L 10.9 L (12.0-16.0) g/dl Hct 29.7 L 33.6 L (37.0-47.0) % Neut # (Auto) 9.66 H (1.40-6.50) K/uL [place] # (Auto) 1.38 H (0.11-0.59) K/uL Anion Gap (3-11) Creatinine 1.54 H (0.6-1.2) mg/dl Glucose 158 H (70-99(Fasting)) mg/dl POC Glucose 167 H (70-99) mg/dl Lactate 2.3 H* (0.4-2.0) mmol/L Calcium 8.5 L (8.6-10.3) mg/dl Total Bilirubin (0.2-1.0) mg/dl Urine Appearance (Clear) Urine Protein (Negative) Urine Ketones (Negative) Urine Blood (Negative) Ur Leukocyte Esterase (Negative) Urine WBC (Auto) (0-5) /hpf Urine RBC (Auto) (0-2) /hpf U Hyaline Cast (Auto) (0-2) /lpf U Epithel Cells (Auto) (0-2) /hpf Urine Bacteria (Auto) (None Seen) Digoxin (0.8-2.0) ng/ml
[2024-11-13] MEDS: cefTRIAXone SODIUM 1,000 MG/50 ML BAG IV SCH (18:06)
[2024-11-13] MEDS: metroNIDAZOLE 500 MG TAB PO SCH (20:17)
[2024-11-13] MEDS: LOPERAMIDE HCL 2 MG CAP PO PRN (20:17)
[2024-11-14] MEDS: CARBOHYDRATES FOR HYPOGLYCEMIA PO PRN (07:48)
[2024-11-14] MEDS: DEXTROSE 50% 50 ML SYRINGE IV PRN (08:06)
[2024-11-14 08:12] LABS: Hematocrit (blood only) 30.8 % (37.0-47.0); Hemoglobin 10.2 g/dl (12.0-16.0); Immature Granulocytes # (auto) 0.08 K/uL (0.01-0.20); Immature Granulocytes % (auto) 0.5 %; Mean Corpuscular Hemoglobin 32.8 pg (25.0-34.0); Mean Corpuscular Volume 99.0 fL (80.0-100.0); Platelet Count 324 K/uL (130-400); RDW Standard Deviation 45.9 fL (36.4-46.3); Red Blood Count 3.11 M/uL (4.20-5.40); White Blood Count 16.55 K/ul (4.8-10.8)
[2024-11-14 08:27] LABS: Anion Gap 6.0 (3-11); Calcium 8.7 mg/dl (8.6-10.3); Carbon Dioxide 26.0 mmol/L (21-32); Chloride 105.0 mmol/L (98-107); Potassium 3.5 mmol/L (3.5-5.1); Sodium 137.0 mmol/L (136-145)
[2024-11-14 09:01] LABS: Blood Urea Nitrogen 15.0 mg/dl (6-23); Creatinine Clr Calc Pharmacy 26.2 ml/min; Glucose 47.0 mg/dl (70-99(Fasting))
[2024-11-14] MEDS: DIGOXIN 0.125 MG TAB PO SCH (09:13)
[2024-11-14] MEDS: FERROUS SULFATE 325 MG TAB PO SCH (09:17)
--- NOTE | 2024-11-14 12:40 | Hospitalist Progress Note ---
Date of Service November 14, 2024 Assessment & Plan (1) Acute UTI: (2) Diarrhea: Plan 79F with PMH CHF EF 40%, CAD s/p CABG pAF not on AC due to anemia, PA, HTN HLD NIDDM CKD3, L breast CA on tamoxifen, chronic pain who presents with diarrhea #Diarrhea Endorsed up to [address] AP without acute GI pathology Hgb is stable and is above her baseline of 10 Denies recent abx use C. difficile and stool PCR negative Diarrhea frequency improved #Acute UTI Urinalysis suggestive of infection Urine already growing E. coli Plan to treat UTI with antibiotic for total of 5 days #Hypoglycemiapatient was noted to be hypoglycemic with blood glucose of 47 in AM. Hold glipizide. Currently on D5 NS #KELLY on CKD3 -Baseline Cr 1.5 -Cr 1.7 on admission, likely pre renal from volume loss from diarrhea -Cr improved to baseline this AM with IVF -Continue IVF for today -Avoid nephrotoxic agents #CHronic HFrEF- appears compensated #pAF -Rate controlled -Not on AC due to anemia -Continue toprol and digoxin for RC #HTN -Stable, continue home meds #HLD-not on statin #NIDDM -SSI #L breast CA -Not on chemo or radiation Continue tamoxifen I spent a total of 50 minutes coordinating, documenting, and providing care for this patient excluding time spent in the performance of separately billed services. This included personally reviewing all current laboratories and imaging studies, medical reconciliation, outpatient chart review and discussion with specialists Please note the above document was generated using voice recognition software. It may contain grammatical, syntax or spelling errors. Any formal questions or concerns about the content, text or information contained within the body of this dictation should be directly addressed to the provider for clarification Admission and Anticipated Discharge Date Admission Date: November 13, 2024 Subjective Patient seen and examined at bedside. She reports that she is feeling lightheaded today. Reports that her diarrhea is getting better. No significant events overnight Review of Systems Review of Systems: All systems reviewed & are unremarkable except as noted in Subjective Physical Exam Physical Exam: Constitutional: WD/WN, vitals as above, NAD, sitting up in bed, pleasant, conversing easily Respiratory: normal respiratory effort, lungs clear to auscultation, no wheeze, rales, rhonchi. Normal insp/exp effort, no accessory muscle use Cardiovascular: RRR, no murmur, no edema Vessels: no JVD or carotid bruit Chest: normal inspection of chest Abdomen: Soft, nontender. Neurologic: PERRL, EOMI, accommodation nl, no face palsy, no dysarthria CN's II- XI intact bilaterally and moves all extremities Psychiatric: A+Ox3, euthymic affect Results & Data Results & Data Vital Signs (Past 12 Hours) Vital Signs Temp Pulse Pulse Resp BP Pulse Ox Pulse Ox 11/14/24 11:07 36.9 C 67 20 111/64 98 11/14/24 09:20 64 11/14/24 09:13 64 11/14/24 07:08 36.3 C L 47 L 16 113/60 100 11/14/24 07:06 46 L 11/14/24 03:46 57 L 16 103/57 L 95 11/14/24 02:00 95 O2 Del Method O2 Del Method 11/14/24 11:07 Room Air 11/14/24 09:20 11/14/24 09:13 11/14/24 07:08 Room Air 11/14/24 07:06 11/14/24 03:46 Room Air 11/14/24 02:00 Room Air
[2024-11-14] MEDS: cefTRIAXone SODIUM 1,000 MG/50 ML BAG IV SCH (13:14)
[2024-11-14] MEDS: D5W AND NSS 1,000 ML IV SCH (13:14)
[2024-11-14] MEDS: SODIUM CHLORIDE 0.9% 500 ML IV ONE (16:47)
[2024-11-14] MEDS: DEXTROSE 10% 1,000 ML IV SCH (18:22)
[2024-11-14] MEDS: PIPERACILLIN/TAZOBACTAM 4.5 GM/100 ML BAG IV SCH (18:26)
[2024-11-14 19:04] LABS: Anion Gap 8.0 (3-11); Blood Urea Nitrogen 15.0 mg/dl (6-23); Calcium 8.8 mg/dl (8.6-10.3); Carbon Dioxide 25.0 mmol/L (21-32); Chloride 103.0 mmol/L (98-107); Creatinine Clr Calc Pharmacy 25.8 ml/min; Glucose 71.0 mg/dl (70-99(Fasting)); Potassium 3.4 mmol/L (3.5-5.1); Sodium 136.0 mmol/L (136-145)
--- NOTE | 2024-11-15 00:06 | Ultrasound Report ---
Exam(s): US PELVIS EXAM: US Pelvis Transabdominal, Complete CLINICAL HISTORY: Reason for exam: endometrial filled cavity. TECHNIQUE: Real-time complete transabdominal pelvic ultrasound with image documentation. COMPARISON: No relevant prior studies available. FINDINGS: Uterus/cervix: Endometrium measures 4.8 mm in thickness. Fluid within the endometrial canal however measures 6 mm in thickness. Uterus measures 9.2 x 3.4 x 5.6 cm. No myometrial mass. Right ovary: Trace hypoechoic material within the endometrial canal . Right ovary measures 2 x 1.6 x 2 cm. Normal blood flow. Left ovary: Left ovary is not seen on this exam. Free fluid: No free fluid. Bladder: Unremarkable as visualized. Wall is normal thickness for degree of distention. IMPRESSION: Fluid within the endometrial canal which is an abnormal finding in a postmenopausal female. OBGYN consult recommended for further evaluation Electronically signed by: David Geronimo MD 11/15/24 00:05 AM
[2024-11-15 06:24] LABS: Hematocrit (blood only) 29.4 % (37.0-47.0); Hemoglobin 9.6 g/dl (12.0-16.0); Immature Granulocytes # (auto) 0.04 K/uL (0.01-0.20); Immature Granulocytes % (auto) 0.4 %; Mean Corpuscular Hemoglobin 31.9 pg (25.0-34.0); Mean Corpuscular Volume 97.7 fL (80.0-100.0); Platelet Count 272 K/uL (130-400); RDW Standard Deviation 45.2 fL (36.4-46.3); Red Blood Count 3.01 M/uL (4.20-5.40); White Blood Count 9.99 K/ul (4.8-10.8)
[2024-11-15 06:59] LABS: Anion Gap 5.0 (3-11); Blood Urea Nitrogen 14.0 mg/dl (6-23); Calcium 8.1 mg/dl (8.6-10.3); Carbon Dioxide 26.0 mmol/L (21-32); Chloride 106.0 mmol/L (98-107); Creatinine Clr Calc Pharmacy 26.2 ml/min; Glucose 121.0 mg/dl (70-99(Fasting)); Potassium 3.4 mmol/L (3.5-5.1); Sodium 137.0 mmol/L (136-145)
[2024-11-15] MEDS: CETIRIZINE HCL 10 MG TABLET PO PRN (08:30)
[2024-11-15] MEDS: COSYNTROPIN 250 MCG in SYRINGE 4 ML IV ONE (09:45)
[2024-11-15] MEDS: POTASSIUM CHLORIDE CRTAB 20 MEQ TABCR PO STA (09:45)
[2024-11-15] MEDS: ACETAMINOPHEN 325 MG TAB PO PRN (11:44)
--- NOTE | 2024-11-15 12:02 | Hospitalist Progress Note ---
Date of Service November 15, 2024 Assessment & Plan (1) Acute UTI: (2) Diarrhea: Plan 79F with PMH CHF EF 40%, CAD s/p CABG pAF not on AC due to anemia, PA, HTN HLD NIDDM CKD3, L breast CA on tamoxifen, chronic pain who presents with diarrhea #Diarrhea Endorsed up to [address] AP without acute GI pathology Hgb is stable and is above her baseline of 10 Denies recent abx use C. difficile and stool PCR negative Diarrhea frequency improved #Acute UTI Urinalysis suggestive of infection Urine already growing E. coli Plan to treat UTI with antibiotic for total of 5 days #Hypoglycemiapatient was noted to be hypoglycemic with blood glucose of 47 in AM On 11/14. Cosyntropin stimulation test negative #Abnormal CT abdomen/pelvis scannoted to have fluid within endometrial canal measuring 6 mm in thickness. Will consult RETORT ENGINEER for further recommendation #KELLY on CKD3 -Baseline Cr 1.5 -Cr 1.7 on admission, likely pre renal from volume loss from diarrhea -Cr improved to baseline with IVF #CHronic HFrEF- appears compensated #pAF -Rate controlled -Not on AC due to anemia -Continue toprol and digoxin for RC #HTN -Stable, continue home meds #HLD-not on statin #NIDDM -HbA1c of 5.6%. plan to discontinue glipizide at discharge. #L breast CA -Not on chemo or radiation Continue tamoxifen I spent a total of 50 minutes coordinating, documenting, and providing care for this patient excluding time spent in the performance of separately billed services. This included personally reviewing all current laboratories and imaging studies, medical reconciliation, outpatient chart review and discussion with specialists Please note the above document was generated using voice recognition software. It may contain grammatical, syntax or spelling errors. Any formal questions or concerns about the content, text or information contained within the body of this dictation should be directly addressed to the provider for clarification Admission and Anticipated Discharge Date Admission Date: November 13, 2024 Subjective Patient seen and examined at bedside. She is comfortable; not in distress. No fever or chills overnight. No significant events overnight Diarrhea slightly improved Review of Systems Review of Systems: All systems reviewed & are unremarkable except as noted in Subjective Physical Exam Physical Exam: Constitutional: WD/WN, vitals as above, NAD, sitting up in bed, pleasant, conversing easily Respiratory: normal respiratory effort, lungs clear to auscultation, no wheeze, rales, rhonchi. Normal insp/exp effort, no accessory muscle use Cardiovascular: RRR, no murmur, no edema Vessels: no JVD or carotid bruit Chest: normal inspection of chest Abdomen: Soft, nontender. Neurologic: PERRL, EOMI, accommodation nl, no face palsy, no dysarthria CN's II- XI intact bilaterally and moves all extremities Psychiatric: A+Ox3, euthymic affect Results & Data Results & Data Vital Signs (Past 12 Hours) Vital Signs Temp Pulse Pulse Resp BP Pulse Ox Pulse Ox 11/15/24 11:06 37.6 C H 58 L 18 104/66 98 11/15/24 07:46 36.8 C 55 L 18 94/57 L 94 11/15/24 07:19 59 L 11/15/24 04:21 54 L 11/15/24 02:12 37 C 50 L 16 98/60 L 96 11/15/24 02:00 94 O2 Del Method O2 Del Method 11/15/24 11:06 Room Air 11/15/24 07:46 Room Air 11/15/24 07:19 11/15/24 04:21 11/15/24 02:12 Room Air 11/15/24 02:00 Room Air
--- NOTE | 2024-11-15 16:27 | Consultation ---
Date of Consultation November 15, 2024 Assessment & Plan (1) Endometrial thickening on ultrasound: Follow-up at [facility] after discharge Plan Follow-up after discharge [facility] TECHNICAL SYSTEM ANALYST for possible outpatient D&C History of Present Illness Requesting Physician: Danial Reason for Consultation: Fluid in the endometrial cavity Attending Physician: Tim Vargas MD History of Present Illness Patient is an 79-year-old 2 para 2. Admitted with acute UTI and sepsis. Extensive medical history including status post coronary artery disease status post left breast cancer. Diabetes. During her workup she had a transvaginal ultrasound which revealed a thickened endometrial cavity. Endometrial stripe was 6 mm with 4.8 mm of endometrial lining. Patient was not aware of any recent vaginal bleeding. Patient states she stopped having Pap smears over 10 years ago. I discussed the findings with the patient. I wrote down my name and contact along with the findings so she could show her . I advised her to follow-up with the [facility] office several months after discharge Allergies Allergy/AdvReac Type Severity Reaction Status Date / Time tramadol Allergy Intermediate Rash Verified 11/12/24 22:30 RENE Inhibitors AdvReac Intermediate Cough Verified 11/12/24 22:30 atorvastatin AdvReac Intermediate Cough Verified 11/12/24 22:30 naproxen AdvReac Intermediate Gastrointestinal Verified 11/12/24 22:30 Upset Home Medications Medication Instructions Recorded Confirmed Type aspirin 81 mg chewable tablet 81 mg PO QAM 02/16/19 11/12/24 History ascorbic acid (vitamin C) 250 mg 250 mg PO QPM 05/01/20 11/12/24 History tablet digoxin 125 mcg (0.125 mg) tablet 125 mcg PO 3XWK 05/01/20 11/12/24 History metoprolol succinate 25 mg 25 mg PO QAM 10/02/20 11/12/24 History tablet,extended release 24 hr cetirizine 10 mg tablet (Zyrtec) 10 mg PO DAILY PRN Congestion 12/03/21 11/12/24 History cholecalciferol (vitamin D3) 25 25 mcg PO DAILY 12/03/21 11/12/24 History mcg (1,000 unit) capsule (Vitamin D3) rosuvastatin 40 mg tablet 40 mg PO DAILY 12/03/21 11/12/24 History pantoprazole 40 mg tablet,delayed 40 mg PO DAILY 12/21/21 11/12/24 History release bupropion HCl 150 mg 24 hr tablet, 150 mg PO QAM 10/23/24 11/12/24 History extended release docusate sodium 100 mg capsule 100 mg PO BID 10/23/24 11/12/24 History gabapentin 100 mg capsule 100 mg PO BID 10/23/24 11/12/24 History hydrocodone 5 mg-acetaminophen 325 1 tab PO Q6H PRN Pain 10/23/24 11/12/24 History mg tablet iron 18 mg tablet 18 mg PO Q OTHER DAY 10/23/24 11/12/24 History morphine 15 mg tablet,extended 15 mg PO Q12H 10/23/24 11/12/24 History release potassium chloride 20 mEq 20 meq PO DAILY 10/23/24 11/12/24 History tablet,extended release sennosides 8.6 mg capsule (senna) 8.6 mg PO DAILY 10/23/24 11/12/24 History tamoxifen 20 mg tablet 20 mg PO QDAY 10/23/24 11/12/24 History tizanidine 2 mg capsule 2 mg PO HS PRN MUSCLE SPASMS/PAIN 10/23/24 11/12/24 History food supplemt, lactose-reduced 1 ea PO BID 11/12/24 11/12/24 History glipizide 5 mg tablet, extended 5 mg PO DAILY 11/12/24 11/12/24 History release 24 hr torsemide 20 mg tablet 40 mg PO DAILY 11/12/24 11/12/24 History amoxicillin 875 mg-potassium 1 tab PO BID 7 days #14 tabs 11/15/24 Rx clavulanate 125 mg tablet loperamide 2 mg capsule 2 mg PO Q6H PRN loose stool #14 11/15/24 Rx caps Patient History Medical History Asthma HX-NO INHALERS Acute blood loss anemia DVT prophylaxis Chronic systolic heart failure Interstitial lung disease Melena CHF (congestive heart failure) Atrial fibrillation CKD (chronic kidney disease), stage III Coronary artery disease Acute GI bleeding HX Severe anemia Peripheral arterial disease Surgical wound, non healing Stage II pressure ulcer Stage II pressure ulcer of right heel Unspecified abnormalities of gait and mobility Umbilical hernia with obstruction, without gangrene Rosacea, unspecified Inflamed seborrheic keratosis Neoplasm of uncertain behavior of skin Other allergic rhinitis Asymptomatic menopausal state Plantar fascial fibromatosis Retinal edema Vitamin D insufficiency Interstitial pulmonary disease Ventricular fibrillation History of hypertension Diabetes mellitus, type II Unstable angina pectoris F/U DR DANIEL GONZALEZ Surgical History History of eye surgery FOR BROKEN BLOOD VESSEL History of colonoscopy MULTIPLE History of cardiac cath 12/2018-NO STENTS H/O cataract extraction R/L 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 [facility] [place] Family History Father Coronary heart disease Social History Smoking Status: Never smoker Second Hand Exposure: No; Do You Dip or Chew Tobacco: No; Tobacco Cessation Education Requested by Patient: No Hx Alcohol Use: No Hx Substance Use: No Preferred Language: Jordanian Communication Ability: Effective Hearing Ability: Normal Lumber Buyer Required: No Beliefs That Will Affect Care: None marital status: Current Living Situation: Spouse current occupational status: retired How many Children do You have: 2 Other Information That Helps Us Care for You: No Feels Safe at Home: Yes Safety Concerns: Feels Safe At This Time during the past year weight has: remained stable Physical Activity Frequency Comment: walks dog several times daily Assistive Devices: Cane and Walker Physical Exam Physical Exam: Patient appeared to be a well-developed well-nourished 79-year-old white female alert oriented x 3 cooperative in no acute distress. Heart had a regular rhythm S1 and S2 were normal lungs were clear breast exam revealed horizontal scar in the left breast along with puckering midline incision down her chest. Abdomen soft and nontender. There was no calf tenderness. She was noticed to have a extensive red rash covering mainly her abdomen and spreading out towards her chest and upper thigh. Results & Data Vital Signs (Past 12 Hours) Vital Signs Temp Pulse Pulse Resp BP Pulse Ox O2 Del Method 11/15/24 15:29 37.2 C 50 L 18 106/48 L 95 Room Air 11/15/24 11:06 37.6 C H 58 L 18 104/66 98 Room Air 11/15/24 07:46 36.8 C 55 L 18 94/57 L 94 Room Air 11/15/24 07:19 59 L Diagnostic Findings Thickened endometrial stripe on pelvic ultrasound
[2024-11-15] MEDS: CETIRIZINE HCL 10 MG TABLET PO SCH (18:00)
[2024-11-15] MEDS: predniSONE 20 MG TAB PO SCH (18:22)
[2024-11-15] MEDS: CIPROFLOXACIN 500 MG TAB PO SCH (18:22)
[2024-11-15] MEDS: FAMOTIDINE 20 MG TAB PO SCH (20:24)
[2024-11-15] MEDS: diphenhydrAMINE Capsule 25 MG CAP PO ONE (20:36)
[2024-11-16 07:59] LABS: Hematocrit (blood only) 29.1 % (37.0-47.0); Hemoglobin 9.8 g/dl (12.0-16.0); Immature Granulocytes # (auto) 0.04 K/uL (0.01-0.20); Immature Granulocytes % (auto) 0.4 %; Mean Corpuscular Hemoglobin 33.2 pg (25.0-34.0); Mean Corpuscular Volume 98.6 fL (80.0-100.0); Platelet Count 297 K/uL (130-400); RDW Standard Deviation 44.5 fL (36.4-46.3); Red Blood Count 2.95 M/uL (4.20-5.40); White Blood Count 9.25 K/ul (4.8-10.8)
[2024-11-16 08:19] LABS: Anion Gap 4.0 (3-11); Blood Urea Nitrogen 17.0 mg/dl (6-23); Calcium 8.6 mg/dl (8.6-10.3); Carbon Dioxide 24.0 mmol/L (21-32); Chloride 109.0 mmol/L (98-107); Creatinine Clr Calc Pharmacy 21.3 ml/min; Glucose 194.0 mg/dl (70-99(Fasting)); Potassium 4.9 mmol/L (3.5-5.1); Sodium 137.0 mmol/L (136-145)
--- NOTE | 2024-11-16 12:13 | Hospitalist Progress Note ---
Date of Service November 16, 2024 Assessment & Plan (1) Acute UTI: (2) Diarrhea: Plan 79F with PMH CHF EF 40%, CAD s/p CABG pAF not on AC due to anemia, PA, HTN HLD NIDDM CKD3, L breast CA on tamoxifen, chronic pain who presents with diarrhea #Acute UTI Urinalysis suggestive of infection Urine already growing E. coli Plan to treat UTI with antibiotic for total of 5 days; Patient was initially given Zosyn which was switched over to ciprofloxacin #Drug rash: noted to have rash over the torso/back after being given Zosyn. Patient is started on cetirizine, Pepcid, prednisone and calamine lotion. #Hypoglycemiapatient was noted to be hypoglycemic with blood glucose of 47 in AM On 11/14. Glipizide discontinued. Cosyntropin stimulation test negative #Abnormal CT abdomen/pelvis scannoted to have fluid within endometrial canal measuring 6 mm in thickness. Will consult SUPERVISOR CONTINUOUS WELD PIPE MILL for further recommendation #Diarrhea Endorsed up to [address] AP without acute GI pathology Denies recent abx use C. difficile and stool PCR negative Diarrhea frequency improved #KELLY on CKD3 -Baseline Cr 1.5 -Cr 1.7 on admission, likely pre renal from volume loss from diarrhea -Cr slightly uptrended to 1.6; will give 500cc iv fluid with NSS #CHronic HFrEF- appears compensated #pAF -Rate controlled -Not on AC due to anemia -Continue toprol and digoxin for RC #HTN -Stable, continue home meds #HLD-not on statin #NIDDM -HbA1c of 5.6%. plan to discontinue glipizide at discharge. #L breast CA -Not on chemo or radiation Continue tamoxifen I spent a total of 50 minutes coordinating, documenting, and providing care for this patient excluding time spent in the performance of separately billed services. This included personally reviewing all current laboratories and imaging studies, medical reconciliation, outpatient chart review and discussion with specialists Please note the above document was generated using voice recognition software. It may contain grammatical, syntax or spelling errors. Any formal questions or concerns about the content, text or information contained within the body of this dictation should be directly addressed to the provider for clarification Admission and Anticipated Discharge Date Admission Date: November 13, 2024 Subjective Patient seen and examined at bedside. She was noted to have rash over her torso and back last evening; reports itching. Review of Systems Review of Systems: All systems reviewed & are unremarkable except as noted in Subjective Physical Exam Physical Exam: Constitutional: WD/WN, vitals as above, NAD, sitting up in bed, pleasant, conversing easily Respiratory: normal respiratory effort, lungs clear to auscultation, no wheeze, rales, rhonchi. Normal insp/exp effort, no accessory muscle use Cardiovascular: RRR, no murmur, no edema Vessels: no JVD or carotid bruit Chest: normal inspection of chest Skin:Maculopapular rash over the torso and back; Abdomen: Soft, nontender. Neurologic: PERRL, EOMI, accommodation nl, no face palsy, no dysarthria CN's II- XI intact bilaterally and moves all extremities Psychiatric: A+Ox3, euthymic affect Results & Data Results & Data Vital Signs (Past 12 Hours) Vital Signs Temp Pulse Pulse Resp BP Pulse Ox Pulse Ox 11/16/24 11:24 37.0 C 55 L 18 113/70 95 11/16/24 09:20 66 11/16/24 07:51 37.1 C 66 16 101/70 99 11/16/24 02:35 37.4 C 51 L 16 106/55 L 94 11/16/24 02:00 97 O2 Del Method O2 Del Method 11/16/24 11:24 Room Air 11/16/24 09:20 11/16/24 07:51 Room Air 11/16/24 02:35 Room Air 11/16/24 02:00 Room Air
[2024-11-16] MEDS: CALAMINE/PRAMOXINE LOTION 180 APPLN/180 ML BTL EXT SCH (12:44)
[2024-11-16] MEDS: SODIUM CHLORIDE 0.9% 500 ML IV SCH (12:44)
[2024-11-16] MEDS: HEPARIN SOD 5,000 UNIT/0.5 ML VIAL SQ SCH (14:07)
[2024-11-17 08:28] VITALS: RESP 20; O2SAT 96
[2024-11-17 11:09] LABS: Anion Gap 5.0 (3-11); Calcium 9.0 mg/dl (8.6-10.3); Carbon Dioxide 23.0 mmol/L (21-32); Chloride 110.0 mmol/L (98-107); Potassium 4.3 mmol/L (3.5-5.1); Sodium 138.0 mmol/L (136-145)
[2024-11-17 11:14] LABS: Blood Urea Nitrogen 24.0 mg/dl (6-23); Creatinine Clr Calc Pharmacy 25.0 ml/min; Glucose 104.0 mg/dl (70-99(Fasting))
[2024-11-17 11:18] VITALS: BP 114/71; PULSE 56; TEMP 98.4
--- NOTE | 2024-11-17 11:49 | Discharge Summary ---
Date of Service November 17, 2024 Admission HPI Per Admitting Provider History obtained from patient and records. Medical history significant for chronic systolic heart failure (EF 40-44%, TTE 2022), CAD status post CABG, PAF off anticoagulation secondary to significant anemia as per records, valvular heart disease (mild TR/MR), PAD, hypertension, hyperlipidemia, DM2 on oral medications, CRI (baseline creatinine 1.6), left breast cancer status post surgery/radiation on tamoxifen, bilateral sacroiliitis, chronic pain on narcotics. Last confinement 2020 for GI bleed. Endoscopy deferred during confinement. Patient noted diarrhea symptoms the last few days. Blood noted in stool for 1 day 2 days ago. No abdominal pain. Some nausea symptoms. Not sure about sick contacts. No recent antibiotic Rx or out-of-town travel. Increased urinary frequency yesterday. Fever chills at home. Patient felt flushed. IV ceftriaxone administered at the ER. Medical History as above 2020 colonoscopy showed polyps and internal hemorrhoids 2022 EGD showed sliding hiatal hernia Surgical History : CABG, breast biopsy/partial mastectomy, laser trabeculoplasty, vascular procedures, cataract surgeries Family History : Heart disease Personal/Social history : Non-smoker, no EtOH intake, retired from clerical work Admission Exam Per Admitting Provider GENERAL: Comfortable, slightly anxious, no respiratory distress SKIN: Pallor, warm HEENT: Sparse hair, flushed cheeks, pale palpebral conjunctivae, no ptosis, dry buccal mucosa NECK : Supple, no tenderness CHEST : CTA, no tenderness HEART : RRR, no obvious murmurs ABDOMEN: Some distention, nontender EXTREMITIES : Minimal LE swelling, no LE tenderness, palpable pulses, no other conspicuous deformities noted NEUROLOGIC : Coherent, no facial asymmetry, no other gross focality Principal Diagnosis #Acute UTI #Drug rash: #Hypoglycemia #Abnormal CT abdomen/pelvis scan #Diarrhea #KELLY on CKD3 Discharge Exam Constitutional: WD/WN, vitals as above, NAD, sitting up in bed, pleasant, conversing easily Respiratory: normal respiratory effort, lungs clear to auscultation, no wheeze, rales, rhonchi. Normal insp/exp effort, no accessory muscle use Cardiovascular: RRR, no murmur, no edema Vessels: no JVD or carotid bruit Chest: normal inspection of chest Skin:Maculopapular rash over the torso and back; Abdomen: Soft, nontender. Neurologic: PERRL, EOMI, accommodation nl, no face palsy, no dysarthria CN's II- XI intact bilaterally and moves all extremities Psychiatric: A+Ox3, euthymic affect Discharge Data Allergies Allergy/AdvReac Type Severity Reaction Status Date / Time tramadol Allergy Intermediate Rash Verified 11/12/24 22:30 RENE Inhibitors AdvReac Intermediate Cough Verified 11/12/24 22:30 atorvastatin AdvReac Intermediate Cough Verified 11/12/24 22:30 naproxen AdvReac Intermediate Gastrointestinal Verified 11/12/24 22:30 Upset zosyn Allergy Mild Rash Uncoded 11/16/24 12:08 Consultations 11/12/24 23:28 ED Decision to Admit Stat 11/15/24 11:54 Consult Gynecology Routine Ordered Studies 11/12/24 21:27 CT Abd and Pelvis [CT abd pelvis IV con only] Stat 11/14/24 17:26 US pelvic complete Routine Hospital Course (1) Acute UTI: (2) Diarrhea: Plan 79F with PMH CHF EF 40%, CAD s/p CABG pAF not on AC due to anemia, PA, HTN HLD NIDDM CKD3, L breast CA on tamoxifen, chronic pain who presents with increased urinary frequency and diarrhea #Acute UTI Urinalysis suggestive of infection Urine already growing E. coli Patient was treated with IV Zosyn for which she had a rash. She was then switched over to ciprofloxacin. Plan to discharge on oral ciprofloxacin. #Drug rash: noted to have rash over the torso/back after being given Zosyn. Discharge on cetirizine, Pepcid, prednisone and calamine lotion. Plan to follow- up with her PCP to monitor the rash #Hypoglycemiapatient was noted to be hypoglycemic with blood glucose of 47 in AM On 11/14. Glipizide discontinued. Hba1c of 5.6% Cosyntropin stimulation test negative #Abnormal CT abdomen/pelvis scannoted to have fluid within endometrial canal measuring 6 mm in thickness. Consider LOG TRUCK DRIVER recommended outpatient follow-up for possible D&C #Diarrhea- improved. C.diff and stool PCR neg. discharged on loperamide #KELLY on CKD3- improved to baseline at discharge. #CHronic HFrEF- appears compensated; hold torsemide at discharge Please note the above document was generated using voice recognition software. It may contain grammatical, syntax or spelling errors. Any formal questions or concerns about the content, text or information contained within the body of this dictation should be directly addressed to the provider for clarification Total Time Total Time Spent Total Time Spent (In Minutes): 45 Total Time Includes: Examination of the Patient, Discharge Planning, Medication Reconciliation, Communication With Other Providers and Other Discharge Plan Discharge Items Patient Disposition: Home - Self-Care Reason For Visit: COMP UTI, LGIB Discharge Diagnosis: (1) Acute UTI: (2) Diarrhea: Condition on Discharge: Good Activity: Resume your previous activity Non-emergency contact: Primary Care Provider Call non-emergency contact if: you have any medication questions and your symptoms worsen Follow-up/Referrals: Jacek Baltazar DO [Primary Care Provider] - (Date & Time 11/21/2024 9:00 AM Provider: Jacek Baltazar DO [facility] ) Diet: Regular Addtl Attending Provider Instructions: You are admitted to the hospital due to urinary tract infection. You are otilia nomi with antibiotic during the hospitalization. You are prescribed ciprofloxacin 500mg once a day for 4 days. For the diarrhea, you underwent a stool test which were negative. Please take [id number] probiotic while you are on antibiotics. Take loperamide as needed for diarrhea. For the drug rash, you are prescribed followin) Prednisone 40 mg once a day for 3 days, 2) Cetirizine 10 mg once a day for 7 days 3) Famotidine 20 mg twice a day for 7 days 4) Calamine lotion twice a day as needed for itching Hold Torsemide and potassium supplement until you see your PCP Pending Studies at Discharge: No Stand-Alone Forms: My [employer], Smoking Cessation Medications and DC Order Prescriptions: New loperamide 2 mg capsule 2 mg PO Q6H PRN (Reason: loose stool) Qty: 14 0RF cetirizine 10 mg Tablet 10 mg PO QAM 7 Days Qty: 7 0RF prednisone 20 mg Tablet 40 mg PO DAILY 3 Days Qty: 6 0RF ciprofloxacin HCl 500 mg Tablet 500 mg PO DAILY 4 Days Qty: 4 0RF famotidine 20 mg Tablet 20 mg PO BID 7 Days Qty: 14 0RF Calamine Medicated 1-8 % Lotion 1 applic EXT BID Qty: 177 0RF Continued cetirizine [Zyrtec] 10 mg tablet 10 mg PO DAILY PRN (Reason: Congestion) cholecalciferol (vitamin D3) [Vitamin D3] 25 mcg (1,000 unit) capsule 25 mcg PO DAILY rosuvastatin 40 mg tablet 40 mg PO DAILY pantoprazole 40 mg tablet,delayed release (DR/EC) 40 mg PO DAILY iron 18 mg tablet 18 mg PO Q OTHER DAY docusate sodium 100 mg capsule 100 mg PO BID gabapentin 100 mg capsule 100 mg PO BID morphine 15 mg tablet extended release 15 mg PO Q12H senna 8.6 mg capsule 8.6 mg PO DAILY hydrocodone-acetaminophen 5-325 mg tablet 1 tab PO Q6H PRN (Reason: Pain) tamoxifen 20 mg tablet 20 mg PO QDAY bupropion HCl 150 mg tablet extended release 24 hr 150 mg PO QAM tizanidine 2 mg capsule 2 mg PO HS PRN (Reason: MUSCLE SPASMS/PAIN) aspirin 81 mg tablet,chewable 81 mg PO QAM ascorbic acid (vitamin C) 250 mg tablet 250 mg PO QPM digoxin 125 mcg (0.125 mg) tablet 125 mcg PO 3XWK Rx Instructions: MON, WED, & FRI MORNINGS metoprolol succinate 25 mg tablet extended release 24 hr 25 mg PO QAM Boost High Protein Liquid 1 ea PO BID Held potassium chloride 20 mEq tablet extended release 20 meq PO DAILY Hold Instructions: Resume on 11/20/24. torsemide 20 mg Tablet 40 mg PO DAILY Hold Instructions: Resume on 11/20/24. Rx Instructions: MAY TAKE ADDITIONAL 20 MG IF NEEDED FOR SWELLING. Discontinued glipizide 5 mg Tablet Extended Release 24hr 5 mg PO DAILY Discharge Orders: Discharge Order (Routine); Ordered 11/17/24 Ordered By: Tim Epstein/Other Patient Handouts: Managing Type 2 Diabetes Admission Data Admit Date/Time: 11/13/24 00:54 Attending Provider: Tim Vargas Admit Provider: Michael Wang Primary Care Provider: Jacek Baltazar Other Providers: Michael Wang; Christian Humphreys
[2024-11-17 11:52] LABS: Hematocrit (blood only) 34.0 % (37.0-47.0); Hemoglobin 10.9 g/dl (12.0-16.0); Immature Granulocytes # (auto) 0.07 K/uL (0.01-0.20); Immature Granulocytes % (auto) 0.4 %; Mean Corpuscular Hemoglobin 31.8 pg (25.0-34.0); Mean Corpuscular Volume 99.1 fL (80.0-100.0); Platelet Count 308 K/uL (130-400); RDW Standard Deviation 45.4 fL (36.4-46.3); Red Blood Count 3.43 M/uL (4.20-5.40); White Blood Count 15.81 K/ul (4.8-10.8)
--- NOTE | 2024-11-19 06:25 | Coding Query ---
To promote full compliance with coding requirements relating to patient care, provider participation is requested in all cases of class a regional drivers uncertainty. Please assist us with the question(s) below: Coding Question(s): The diagnoses below were documented in the H&P then subsequently fell off all further documentation. Please indicate if it is still a possible diagnosis or ruled out. Physician's Response(s): SEPSIS ( X ) Diagnosed and POA ( ) Diagnosed and not POA ( ) Ruled out ( ) Other (please specify) SEVERE SEPSIS ( ) Diagnosed and POA ( ) Diagnosed and not POA ( ) Ruled out ( ) Other (please specify) Lower GI Bleed (LGIB) ( ) Diagnosed and POA ( ) Diagnosed and not POA (X ) Ruled out ( ) Other (please specify) MTDD
== END 2024-11-17 16:45 | disposition home or self-care (01) | DRG 872 ==
LOC: ED 19:58 → EDINP 11-13 00:54 → SUATTDRO 11-13 00:54 → 2N 11-13 01:26